=== PATIENT | female | born 2000 | race Caucasian/White ===

== ENCOUNTER → 2021-07-19 14:54 | Outpatient (CLI) | payer MEDICAID, SELFPAY ==
[2021-07-19 16:10] LABS: Absolute Lymphocyte Count 2.49 X10^3/uL (0.83-4.51); Absolute Neutrophil Count 4.1 X10^3/uL (2.0-7.7); Basophil# 0.06 X10^3/uL; Basophil% 0.8 % (0-1); Eosinophil# 0.16 X10^3/uL; Eosinophils% 2.2 % (0-5); Hematocrit 37.2 % (37-47); Hemoglobin 12.4 g/dL (12.0-15.0); Lymphocyte # 2.49 X10^3/ul (0.83-4.51); Lymphocyte % 33.9 % (19-41); Mean Corp Hgb Conc 33.3 g/dL (32-36); Mean Corpuscular Hgb 31.4 pg (27.0-32.0); Mean Corpuscular Volume 94.2 fL (81-99); Mean Platelet Vol. 10.5 fl (6.2-12.0); Monocyte# 0.55 X10^3/uL; Monocyte% 7.5 % (0-10); NRBC Flagged by Analyzer 0 % (0-5); Neutrophil # 4.06 X10^3/uL (2.7-7.7); Neutrophil % 55.3 % (47-70); Platelet Count 338 K/mm3 (150-450); RBC Distribution Width CV 11.9 % (11.6-14.6); RBC Distribution Width SD 40.8 fl (35.1-43.9); Red Blood Count 3.95 M/mm3 (4.2-5.4); White Blood Count 7.3 K/mm3 (4.4-11.0)
[2021-07-20 09:54] LABS: HIV - WCH Non-Reactive (Nonreactive); Hepatitis B Surface Antigen Non-Reactive (Nonreactive); Hepatitis C Antibody Non-Reactive (Nonreactive); Rubella IgG Reactive (Nonreactive); Syphilis Antibodies Non-reactive
[2021-07-21 22:07] LABS: Chlamydia By Nucleic Acid AMP Negative (Negative)
[2021-07-22 08:10] LABS: Gonococcus By Nucleic Acid AMP Negative (Negative)
[2021-07-22 16:28] LABS: HPV Reflexed? NOT INDICATED
== END ==
PROVIDERS: Visit Provider Obstetrics & Gynecology
DX: Z34.81 Encounter for supervision of other normal pregnancy, first trimester (principal)
CPT/HCPCS: 36415; 85025; 86703; 86762; 86780; 86803; 87086; 87088; 87340; 87491; 87591; 88175; G0145

== ENCOUNTER 2021-12-07 10:10 | Outpatient (CLI) | payer MEDICAID, SELFPAY ==
[2021-12-07 11:19] LABS: Hematocrit 33.4 % (37-47); Mean Corp Hgb Conc 32.9 g/dL (32-36); Mean Corpuscular Hgb 32.2 pg (27.0-32.0); Mean Corpuscular Volume 97.7 fL (81-99); Mean Platelet Vol. 11.1 fl (6.2-12.0); Platelet Count 273 K/mm3 (150-450); RBC Distribution Width CV 13.4 % (11.6-14.6); RBC Distribution Width SD 47.8 fl (35.1-43.9); Red Blood Count 3.42 M/mm3 (4.2-5.4); White Blood Count 10.8 K/mm3 (4.4-11.0)
[2021-12-07 11:23] LABS: Glucose Challenge Gest 1H 50g 91 mg/dL (70-140)
== END 2021-12-07 23:59 | disposition home or self-care (01) ==
PROVIDERS: Visit Provider Obstetrics & Gynecology
DX: Z34.83 Encounter for supervision of other normal pregnancy, third trimester (principal)
CPT/HCPCS: 36415; 82950; 85027

== ENCOUNTER 2022-01-17 06:59 | Outpatient (CLI) | payer MEDICAID, SELFPAY ==
[2022-01-17 07:21] VITALS: PULSE 83; O2SAT 98
[2022-01-17 07:34] VITALS: BMI 33.3
[2022-01-17 07:49] LABS: Color, Urine Yellow (Yellow); Glucose, Dipstick Normal (Normal); Ketone-Dipstick Negative (Negative); Leukocyte Esterase-Dipstick 25 /ul (Negative); Nitrite-Dipstick Negative (Negative); Occult Blood-Urine Negative /ul (Negative); Protein-Dipstick Negative (Negative); Urine Bilirubin Dipstick Negative (Negative); Urine Clarity Clear (Clear); Urine Urobilinogen Normal (Normal)
--- NOTE | 2022-01-17 08:12 | PN.OBGYN_ITS ---
Subjective Subjective 21-year-old G6, P3 at 33/4w presenting to labor and delivery triage for back pain and intermittent contractions. Denies leaking of fluid, vaginal bleeding. Reports movement. States she had low back pain starting yesterday and yesterday afternoon started having contractions. Reports rectal pressure. Has had loose stools for the past couple days. Denies fevers or chills, nausea or vomiting, urinary symptoms. Objective Data Objective Data Vital Signs: Vital Signs Pulse Pulse Ox 83 98 01/17/22 07:21 01/17/22 07:21 Weight: 56 kg Body Mass Index (BMI) 33.3 Lab / Micro Data Labs: Laboratory Results - last 24 hr 01/17/22 07:35: Urine Color Yellow, Urine Clarity Clear, Urine pH 7.0, Ur Specific Gorman 1.010, Urine Protein Negative, Urine Glucose (UA) Normal, Urine Ketones Negative, Urine Occult Blood Negative, Urine Nitrite Negative, Urine Bilirubin Negative, Urine Urobilinogen Normal, Ur Leukocyte Esterase 25 H Physical Exam Const alert, oriented x3 and no apparent distress HEENT normocephalic Head and Scalp: atraumatic Resp normal respiratory effort Cardio regular rate GI normal to inspection, nondistended, normoactive bowel sounds Inspection: gravid Narrative: CE: cl/th/high Back/Spine no CVA tenderness and normal to inspection General Back: Negative for tenderness Extremity normal to inspection NST FHR Rate Baby A Baseline: 140 Variability:: Moderate Accelerations:: 15 x 15 Decelerations:: None NST Reactive:: Yes Uterine Activity:: Rare contraction Assessment & Plan (1) Low back pain: PLAN: 21 yo at 33/4w presenting with low back pain and intermittent contractions. -No evidence of labor at this time. Cervix is closed/thick/high. Rare contractions on toco. -Low back pain likely secondary to discomfort in . Discussed supportive measures with stretching, massage, belly band for abdominal support. Discussed that subsequent pregnancies can cause more discomfort, and this disco mfort earlier. -Rectal pressure likely secondary to GI distress of recent loose stools. -Encourage increasing p.o. hydration, belly band -Recheck cervix in approximately 1 to 2 hours
[2022-01-17 09:55] VITALS: BP 121/75; PULSE 83
[2022-01-17 09:56] VITALS: TEMP 36.8
== END 2022-01-17 23:59 | disposition home or self-care (01) ==
LOC: WPOUT 07:02 → WP 07:20
PROVIDERS: PCP Family Medicine; Visit Provider Student in an Organized Health Care Education/Training Program
DX: O99.891 Other specified diseases and conditions complicating pregnancy (principal); M54.50 Low back pain, unspecified; Z3A.33 33 weeks gestation of pregnancy
CPT/HCPCS: 59025; 59050; 81002; 87077; 87086; 87088; 87186; 99218; G0378

== ENCOUNTER → 2022-02-04 | Outpatient (CLI) | payer MEDICAID, SELFPAY | END | disposition home or self-care (01) | PROVIDERS: PCP Family Medicine; Visit Provider Obstetrics & Gynecology | DX: Z36.85 Encounter for antenatal screening for Streptococcus B (principal); O99.891 Other specified diseases and conditions complicating pregnancy; N89.9 Noninflammatory disorder of vagina, unspecified | CPT/HCPCS: 87081 ==

== ENCOUNTER 2022-02-11 21:50 | Outpatient (CLI) | payer MEDICAID, SELFPAY ==
[2022-02-11 21:58] VITALS: PULSE 88; O2SAT 97
[2022-02-11 22:01] VITALS: BP 120/79; PULSE 91
[2022-02-11 22:12] VITALS: BMI 22.9
[2022-02-11 23:49] VITALS: BP 122/74; TEMP 36.7
[2022-02-11 23:50] VITALS: PULSE 76; O2SAT 98
--- NOTE | 2022-02-12 11:21 | OB.TRI.NOTE ---
HPI - General HPI Narrative CHRISTA BROWN, is a 21 F who presents at 37+ weeks gestation with some contractions. PFSH PFSH Home Medications albuterol sulfate 1 - 2 puff INHALATION Q4H PRN PRN 01/17/22 [History Last Taken Unknown] promethazine 12.5 mg PO DAILY PRN 01/17/22 [History Last Taken 02/10/22] Zoloft 100 mg PO/SL DAILY 02/11/22 [History Last Taken 02/10/22] Allergy/AdvReac Type Severity Reaction Status Date / Time amoxicillin [From Augmentin] Allergy Other Verified 02/12/22 00:14 clavulanic acid Allergy Other Verified 02/12/22 00:14 [From Augmentin] NST FHR Rate Baby A NST Reactive:: Yes FHR Category:: Category I Assessment & Plan (1) False labor, antepartum: PLAN: 37+ week intrauterine with false labor. After monitoring for a few hours cervix remained dilated at 3/50/-3. Reactive nonstress test. Discharge to home with routine labor instructions.
== END 2022-02-12 00:15 | disposition home or self-care (01) ==
LOC: WPOUT 21:54 → WP 21:54
PROVIDERS: PCP Family Medicine; Visit Provider Obstetrics & Gynecology
DX: O47.1 False labor at or after 37 completed weeks of gestation (principal); Z3A.37 37 weeks gestation of pregnancy
CPT/HCPCS: 59025; 59050; 99218; G0378

== ENCOUNTER 2022-02-23 07:45 | Inpatient (IN) | payer MEDICAID, SELFPAY ==
[2022-02-23] VITALS (35 sets, daily range): BP systolic 107–142; BP diastolic 60–92; PULSE 64–171; RESP 16; TEMP 36.2–37; O2SAT 78–100; BMI 23.7
[2022-02-23] MEDS: Lactated Ringers 1,000 ML 50 ML IV (08:15)
[2022-02-23 08:32] LABS: Absolute Lymphocyte Count 2.23 X10^3/uL (0.83-4.51); Absolute Neutrophil Count 13.1 X10^3/uL (2.0-7.7); Basophil# 0.06 X10^3/uL; Basophil% 0.4 % (0-1); Eosinophil# 0.08 X10^3/uL; Eosinophils% 0.5 % (0-5); Hemoglobin 11.4 g/dL (12.0-15.0); Lymphocyte # 2.23 X10^3/ul (0.83-4.51); Lymphocyte % 13.4 % (19-41); Mean Corp Hgb Conc 32.6 g/dL (32-36); Mean Corpuscular Hgb 31.7 pg (27.0-32.0); Mean Corpuscular Volume 97.2 fL (81-99); Mean Platelet Vol. 11.5 fl (6.2-12.0); Monocyte# 1.02 X10^3/uL; Monocyte% 6.1 % (0-10); NRBC Flagged by Analyzer 0 % (0-5); Neutrophil # 13.08 X10^3/uL (2.7-7.7); Neutrophil % 78.3 % (47-70); Platelet Count 270 K/mm3 (150-450); RBC Distribution Width CV 13.1 % (11.6-14.6); RBC Distribution Width SD 46.6 fl (35.1-43.9); White Blood Count 16.7 K/mm3 (4.4-11.0)
[2022-02-23 08:48] LABS: Amphetamine Urine VISTA NEGATIVE (<1000 ng/mL); Barbiturate Urine VISTA NEGATIVE (< 200 ng/mL); Benzodiazepine Urine VISTA NEGATIVE (< 200 ng/mL); Cocaine Urine VISTA NEGATIVE (< 300 ng/mL); Ecstacy Urine VISTA NEGATIVE (< 500 ng/mL); Methadone Urine VISTA NEGATIVE (< 300 ng/mL); PCP Urine VISTA NEGATIVE (< 25 ng/mL); THC Urine VISTA POSITIVE (< 50 ng/mL); Vista UDS pH Range 7
--- NOTE | 2022-02-23 08:54 | HP.PCM.OB_ITS ---
History and Physical Date of Admission: 02/23/22 ACOG ANTEPARTUM RECORD - HISTORY AND PHYSICAL (02/23/2022) Name: CHRISTA BROWN History of this : This is a 21 year old [id number] presents at 38 wks + 6 days gestation. OB Physician: NEFTALI MERCHANT MD 's Physician: [facility] ...................................................................... : 2000 Age: 21 Address: [address] [place] [address] [address] [place] [address] Phone: (H) [phone] (O) [phone] Insurance Carrier: [employer] [phone] Emergency Contact: DARIEN URIBE [phone] ...................................................................... Final VARUN: 03/03/22 By Ultrasound: PARITY: (G-Total Pregnancies P-Fullterm,Premature,Induced AB,Spont AB, Ectopics, Multiple,Living) VARUN CONFIRMATION: By LMP: 05/27/21 Final VARUN: 03/03/22 OB PROBLEM LIST: Smokes and uses marijuana. NOB visit- states had seiizure a few mo ago. On no meds... Declines genetic and carrier screening FOB with sickle cell trait. Patient with no family/personal history Severe nausea/vomiting Stress-induced epilepsy ALLERGIES: Augmentin Intolerance-unknown MEDICATIONS: albuterol sulfate 2 mg tablet This is an INHALER cephalexin 500 mg capsule 1 PO QID Diflucan 150 mg tablet 1 PO now Fioricet 50 mg-300 mg-40 mg capsule 1 to 2 PO every four to six hours PRN Headache. Do no exceed 6 capsules daily 28 mg-800 mcg tablet As Directed promethazine 12.5 mg tablet 1 PO every four to six hours PRN Nausea Zofran 4 mg tablet As Directed every eight hours for nausea Zoloft 100 mg tablet One pill by mouth once a day SOCIAL HISTORY: Smoking - Advised to quit and smoker x 1y. smokes a few a day Alcohol Use - None Diet - no special diet and Water 4+ bottles daily. Occ tea. 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 Children Name(s) - Ages 6 and 3 PRIOR DELIVERY HISTORY DEL DATE GEST LAB WT LB WT OZ TYPE ANES LABOR TX 01 Jan 27 8 0 0 0 Sab None No Oct 29 6 0 0 0 Sab None No Jul 26 39 18 6 8 Vag Epidural No Aug 27 40 7 6 1 Vag Epidural No Jul 23 41 36 8 7 Vag Epidural No ANTEPARTUM FLOW CHART VISIT GE RTC FU F F MS U U DATE WK MD WKS HT PN HR M SS BP ED WT MS GL D EF ST __ ____ ___ __ __ ___ __ __ __ ___ __ __ __ ___ __ 17 February JMW 6 37 V + + 122/84 sl 133 - - 4 50 -2 February JM 1 37 V + de 112/64 0 130 tr - 3 February JM 1 36 V + + 102/64 0 127 - - 3 Jan JM 1 36 V + + 110/72 0 127 - - 3 Jan JMW 2 34 V + + 110/90 126 ne ne 1 50 -2 14 Jan + 116/76 0 125 tr - 25 Jan 06 JM 2 31 - + + 112/62 0 124 - - 08 Jan 03 JM 2 28 - + + 118/66 0 118 tr - cl Jan 02 JM 3 27 - + + 115/70 sl 116 - - 01 Dec 01 JM 4 - - on + 110/62 0 117 - - 04 Oct 27 JM 4 19 - on + 108/66 0 113 03 Sep 22 JM 4 - - + ? 108/60 0 106 - - Jul 18 JM 5 - - on US 100/62 0 102 tr - ANTEPARTUM NOTE(S): Feb 22 2022: Ctxs-occas, Good FM, Induce per Request Feb 15 2022: Feb 07 2022: Feb 04 2022: Jan 26 2022: Dizziness, [place]/yellow discharge, Cx daily Jan 20 2022: Headache for 1+ days, see note Dec 31 2021: Dec 14 2021: Dec 07 2021: see note Nov 09 2021: see note Oct 12 2021: doing well Sep 10 2021: see note Aug 06 2021: Sono, PNV and NOB Today COMPREHENSIVE ANTEPARTUM NOTE(S): Feb 22 2022: 38 wks 5 days with occasional contractions and periodic (L) thigh numbness. Good FM. CRISTINO Feb 15 2022: Christa is 37w5d here for PNV baby has had decreased FM no edmea. Would like cervical exam. BR Feb 15 2022: NST at 37.5w for decreased movement. She smokes 1/2 to 1PPD. NST procedure explained to parents. Read as reactive by Dr MESA. COURTNEY. Feb 15 2022: 37wk, GBS neg. Decreased FM, NST reactive. MOSHE Feb 08 2022: H taken to OB. tkg Feb 07 2022: Christa is 36w4d here for PNV good FM no edema. States she is having irregular contractions would like cervical check Feb 07 2022: 36wks, GBS neg. 3cm. JM Feb 04 2022: Christa is 36w1d here for PNV good FM no edema. GBS LARC today. C/O vaginal discharge and itching. BR Feb 04 2022: 36 weeks, GBS collected today. Vaginitis collected today with vaginal irritation. 3 cm. JM Jan 20 2022: Christa is here for a B/P and urine protein check at 34 w 0 d, as she has had a headache since she woke up yesterday morning. She states that she has taken regular strength Tylenol as often as I am able to, but doesn't help at all. She states that her head hurts all over my head, and stays the same regardless of how she holds her head. Denies recent URI. She denies current visual changes/distur Dec 31 2021: Christa is 31w1d here for PNV good FM no edema. C/O being nauseous. BR Dec 31 2021: 31wk, no complaints. JM Dec 14 2021: Christa is 28w5d here for C/O contractions starting yesterday 4pm. lasting all night. Contractions stopped at 6 am and started again at 845am 2-10 mins apart lasting 2-10 seconds. BR Dec 14 2021: 28 weeks, add-on visit for cramping tolerable. Cervical exam closed thick and high. Ferning negative, nitrazine negative. Soft uterus, nonpalpable contractions. Educated patient on findings. Discussed warning signs of labor. To hydrate and rest at home. MOSHE Dec 07 2021: Christa is 27w5d. Here for PNV. Good FM. Slight edema. She states she is going to buy compression socks to help with her swelling. She would like to talk to MOSHE about being induced when the time comes. 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 She states she needs a new DR note for work excusing her to take 1 break throughout her shift. She has no other complaints or concerns at this time. MR Dec 07 2021: 27wks, 1hr GTT today. Note for work given. MOSHE Nov 09 2021: Christa is 23w5d here for PNV. States she has had decreased in her FM. States usually baby is very active however the last two days states the baby has had decreased FM. She says that the baby does not move 10 times within 2 hrs. Also C/O some Edema in her feet that she states is more than usual. Slight Edema today. She states a few weeks ago she had an episode of darkened vision and ever since then Nov 09 2021: 23 weeks, educated on kick counts. Bedside ultrasound within normal limits. 1 hour GTT next visit. MOSHE Oct 12 2021: Christa is 19w5d positive movement no edema. No questions or concerns she is doing well. BR Oct 12 2021: 19 weeks, anatomy ultrasound today within normal limits. Still with vomiting but much improved. Gaining weight. 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 Sep 10 2021: Christa C/O sharp, stabbing cramping in lower pelvic area, radiates bilaterally on her sides but mostly left the last week daily. She believes she is feeling movement just flutters at this time. Declines AFP screening. BR Sep 10 2021: 15wk, has changed mind and declines genetic and carrier screening. Still with nausea, phenergan works better than zofran. Anatomy u/s next visit. MOSHE Aug 06 2021: 10 weeks, with FINAL VARUN: 03/03/21 by LMP c/w 10wk u/s. Patient with nausea now improving, taking Zofran. Able to hydrate and eat small meals. panel normal limits, Pap smear within normal limits, Rh+. No seizures since last visit. Desires genetic screening will obtain at next visit. MOSHE Aug 06 2021: NOB NURSE VISIT-- Christa is here with FOBDarien with VARUN 03-03-22 planning a vag del at [facility] unsure of epidural or post disch ped care or feeding method. 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 . She lives w Darien who has 7 other children from age 3 to age 22. They are good with the . Christa is allergic to Augmentin, noted as Jul 19 2021: Mindy is here for a missed menses w/ SO. Pt is a 20 y.o. , 2 SAB's. Pt has had all vaginal births, states the cord was wrapped around all 3 of her children's necks upon delivering. 3rd baby, born in 2019, passed at 7 wks d/t SIDS. LMP 05/27/21. Positive UPT in office. VARUN 03/03/22, pt is approx 7 wks and 4 days. Reports daily emesis and nausea, is usually sick multiple times in one day. Takes REVIEW OF SYSTEMS: GENERAL - Denies fever, or chills SKIN - Denies rash, new skin lesions, or change in moles EYES - Denies blurred vision, or change in visual acuity EARS - Denies ear pain, or difficulty hearing NOSE - Denies nasal congestion, discharge, or bleeding MOUTH - Denies sore throat, or difficulty swallowing NECK - Denies pain or swelling RESPIRATORY - Denies shortness of breath, cough, wheezing CARDIOVASCULAR - Denies palpitations, chest pain, orthopnea, PND, peripheral edema, syncope or claudication GASTROINTESTINAL - Denies nausea, vomiting, diarrhea, constipation, Denies abdominal pain, melena and or bright red blood GENITOURINARY - Denies dysuria, frequency of urination, urgency, or hesitancy MUSCULOSKELETAL - Denies joint or muscle pain, or back pain NEUROLOGICAL - Denies localized numbness, weakness, or tingling PSYCHIATRIC - Denies depression, anxiety, substance abuse or suicide attempts ENDOCRINE - Denies heat or cold intolerance, weight loss or gain, increasing thirst HEMATO-IMMUNOLOGIC - Denies easy bruising, bleeding, oral ulcerations or recurrent infections GENETICS SCREENING: Age 35+ years: No Thalassemia: No Neural Tube Defect: No Down Syndrome: No BABITA-SACHS: No Sickle Cell Disease: No Hemophilia: No Musc. Dystrophy: No Cystic Fibrosis: No-declines screening [place] Chorea: No Mental Retardation: No Fragile X: No Other genetic: No Other defects: No SABs/still births: Yes x2 Drugs since LMP: Yes INFECTION HISTORY: High risk AIDS: No High risk Hepatitis: No Exposed to TB: No Exposed to Herpes: No Rash/viral illness since LMP: No History of STD: No MENSTRUAL HISTORY: *Menses Amount/Duration: 5 daysMenses Regularity: RegularFrequency: monthlyMenarche (Age Onset): 8* PAST SUMMARY: PARITY: 1. Total Pregnancies............ 6 2. Full Term Pregnancies........ 3 3. Premature.................... 0 4. Abortions - Induced.......... 0 5. Abortions - Spontaneous...... 2 6. Ectopics..................... 0 7. Multiple Births.............. 0 8. Living Children.............. 2 PAST #1: Date of :.................. 08/03/15 Gestation Weeks:................ 41 Length of labor(hours):......... 36 Sex:............................ F Weight-lbs:............... 8 Weight-oz:................ 7 Type of Delivery:............... Vag Type of Anesthesia:............. Epidural Place of Delivery:.............. [place] Treatment of Labor?:.... No Comment: MARCELINA SHEPHERD Echo PAST #2: Date of :.................. 07/10/18 Gestation Weeks:................ 39 Length of labor(hours):......... 18 Sex:............................ M Weight-lbs:............... 6 Weight-oz:................ 8 Type of Delivery:............... Vag Type of Anesthesia:............. Epidural Place of Delivery:.............. [place] Treatment of Labor?:.... No Comment: Fox HEWITT PAST #3: Date of :.................. 08/29/19 Gestation Weeks:................ 40 Length of labor(hours):......... 7 Sex:............................ M Weight-lbs:............... 6 Weight-oz:................ 1 Type of Delivery:............... Vag Type of Anesthesia:............. Epidural Place of Delivery:.............. [place] Treatment of Labor?:.... No Comment: ESTEVAN HEWITT Christian PAST #4: Date of :.................. 10/09/20 Gestation Weeks:................ 6 Length of labor(hours):......... 0 Sex:............................ UNKNOWN Weight-lbs:............... 0 Weight-oz:................ 0 Type of Delivery:............... Sab Type of Anesthesia:............. None Place of Delivery:.............. HOME Treatment of Labor?:.... No Comment: PAST #5: Date of :.................. 01/07/21 Gestation Weeks:................ 8 Length of labor(hours):......... 0 Sex:............................ UNKNOWN Weight-lbs:............... 0 Weight-oz:................ 0 Type of Delivery:............... Sab Type of Anesthesia:............. None Place of Delivery:.............. HOME Treatment of Labor?:.... No Comment: PHYSICAL EXAMINATION General Appearence: 21 yo female in no acute distress Vital Signs: AF, VSS Heart: RRR without rubs or gallops Lungs: CTA x 2 Breasts: deferred Abdomen: gravid Pelvis: Cervix: 5/90/-2 Presentation: cephalic Station: Fetus: Size: AGA Movement: present Heart: present, Cat I LAB TEST(S) ORDERED SINCE:06/06/21 07/22/2021 URINE CULTURE 07/22/2021 PAP I-G W/RFX HRHPV-APTIMA 07/22/2021 CHLAMYDIA/GC MICHELLE APTIMA 07/20/2021 RUBELLA IGG 07/20/2021 L509.8000 07/20/2021 HIV - [facility] 07/20/2021 HEPATITIS C ANTIBODY 07/20/2021 HEPATITIS B SURFACE ANTIGEN 07/19/2021 T AND S-NO CHARGE W/PNP 07/19/2021 CBC W/DIFF, AUTOMATED 02/23/2022 UR DRG SCN W/RFLX AMPH CONFIRM 02/23/2022 CBC W/DIFF, AUTOMATED 02/08/2022 MISCELLANEOUS LAB PROCEDURE 02/07/2022 RULE OUT BETA STREP (GRP. B) 01/19/2022 URINE CULTURE 01/17/2022 URINALYSIS, ROUTINE (DIPSTICK) 12/07/2021 GLUCOSE CHALLENGE GEST 1H 50G 12/07/2021 CBC-COMPLETE BLOOD CNT NO DIFF == ==== Order Observation Description Value Ref_Range A* Site == ==== UR DRG SCN W/RF NOTE BETH UR DRG SCN W/RF VISTA UDS PH 7 ML UR DRG SCN W/RF AMPHETAMINES NEGATIVE <1000 ng/mL ML UR DRG SCN W/RF BARBITIURATES NEGATIVE < 200 ng/mL ML UR DRG SCN W/RF BENZODIAZIPINE NEGATIVE < 200 ng/mL ML UR DRG SCN W/RF COCAINE NEGATIVE < 300 ng/mL ML UR DRG SCN W/RF ECSTACY NEGATIVE < 500 ng/mL ML UR DRG SCN W/RF METHADONE NEGATIVE < 300 ng/mL ML UR DRG SCN W/RF OPIATES NEGATIVE < 300 ng/mL ML UR DRG SCN W/RF PCP NEGATIVE < 25 ng/mL ML UR DRG SCN W/RF THC POSITIVE < 50 ng/mL A ML CBC W/DIFF, AUT NOTE BETH CBC W/DIFF, AUT WBC 16.7 K/mm3 4.4-11.0 H ML CBC W/DIFF, AUT RBC 3.60 M/mm3 4.2-5.4 L ML CBC W/DIFF, AUT HGB 11.4 g/dL 12.0-15.0 L ML CBC W/DIFF, AUT HCT 35.0 37-47 L ML CBC W/DIFF, AUT MCV 97.2 fL 81-99 ML CBC W/DIFF, AUT MCH 31.7 pg 27.0-32.0 ML CBC W/DIFF, AUT MCHC 32.6 g/dL 32-36 ML CBC W/DIFF, AUT RDW CV 13.1 11.6-14.6 ML CBC W/DIFF, AUT RDW SD 46.6 fl 35.1-43.9 H ML CBC W/DIFF, AUT PLT 270 K/mm3 150-450 ML CBC W/DIFF, AUT MPV 11.5 fl 6.2-12.0 ML CBC W/DIFF, AUT NEUT% 78.3 47-70 H ML CBC W/DIFF, AUT LY% 13.4 19-41 L ML CBC W/DIFF, AUT MONO% 6.1 0-10 ML CBC W/DIFF, AUT EO% 0.5 0-5 ML CBC W/DIFF, AUT BASO% 0.4 0-1 ML CBC W/DIFF, AUT IG% 1.300 0.0-0.9 H ML IG% - Immature Granulocytes (promyelocytes, myelocytes and metamyelocytes) > 1% indicates that a LEFT SHIFT is Present. CBC W/DIFF, AUT ABSOLUTE NEUT 13.1 X10 3/uL 2.0-7.7 H ML CBC W/DIFF, AUT ABSOLUTE LYMPH 2.23 X10 3/uL 0.83-4.51 ML CBC W/DIFF, AUT NUCLEATED RBC 0 0-5 ML MISCELLANEOUS L NOTE BETH MISCELLANEOUS L MISC LAB TEST ML TEST RESULT LIMITS NuSwab Vaginitis Plus (VG+) Bacterial Vaginosis, MICHELLE Atopobium vaginae Low - 0 Score BVAB 2 Low - 0 Score Megasphaera 1 Low - 0 Score Total Score, add three scores Calculate total score by adding the 3 individual bacterial vaginosis (BV) marker scores together. Total score is interpreted as follows: Total score 0-1: Indicates the absence of BV. Total score 2: Indeterminate for BV. Additional clinical data should be evaluated to establish a diagnosis. Total score 3-6: Indicates the presence of BV. This test was developed and its performance characteristics determined by [facility]. It has not been cleared or approved by the Food and Drug Administration. Alyssa albicans, MICHELLE A, Positive Abnormal Negative Alyssa glabrata, MICHELLE A, Negative Negative Trich vag by MICHELLE Negative Negative Chlamydia trachomatis, MICHELLE Negative Negative Neisseria gonorrhoeae, MICHELLE Negative Negative Comments A: This test was developed and its performance characteristics determined by [facility]. It has not been cleared or approved by the Food and Drug Administration. [facility] ORIGINAL REPORT ON FILE IN LAB CONTAINS ADDITIONAL TEST SITE INFORMATION. RULE OUT BETA S NOTE BETH URINE CULTURE NOTE BETH URINALYSIS, ROU NOTE BETH URINALYSIS, ROU COLOR Yellow Yellow ML URINALYSIS, ROU URINE CLARITY Clear Clear ML URINALYSIS, ROU GLUCOSE, UR Normal mg/dl Normal ML URINALYSIS, ROU BILIRUBIN URINE Negative mg/dL Negative ML URINALYSIS, ROU KETONE UR Negative mg/dl Negative ML URINALYSIS, ROU SP.GR. DIPSTX 1.010 1.002-1.030 ML URINALYSIS, ROU PH UR 7.0 5.0 - 8.0 ML URINALYSIS, ROU PROT DIPSTX Negative mg/dl Negative ML URINALYSIS, ROU UROBILI Normal mg/dl Normal ML URINALYSIS, ROU NITRITE Negative Negative ML URINALYSIS, ROU OCCULT BLOOD-UR Negative /ul Negative ML URINALYSIS, ROU LEUK ESTERASE 25 /ul Negative A ML GLUCOSE CHALLEN NOTE BETH GLUCOSE CHALLEN GLU GEST 50G 1H 91 mg/dL 70-140 ML CBC-COMPLETE BL NOTE BETH CBC-COMPLETE BL WBC 10.8 K/mm3 4.4-11.0 ML CBC-COMPLETE BL RBC 3.42 M/mm3 4.2-5.4 L ML CBC-COMPLETE BL HGB 11.0 g/dL 12.0-15.0 L ML CBC-COMPLETE BL HCT 33.4 37-47 L ML CBC-COMPLETE BL MCV 97.7 fL 81-99 ML CBC-COMPLETE BL MCH 32.2 pg 27.0-32.0 H ML CBC-COMPLETE BL MCHC 32.9 g/dL 32-36 ML CBC-COMPLETE BL RDW CV 13.4 11.6-14.6 ML CBC-COMPLETE BL RDW SD 47.8 fl 35.1-43.9 H ML CBC-COMPLETE BL PLT 273 K/mm3 150-450 ML CBC-COMPLETE BL MPV 11.1 fl 6.2-12.0 ML URINE CULTURE NOTE BETH HEPATITIS C ANT NOTE BETH HEPATITIS C ANT HEPATITIS C AB Non-Reactive Nonreactive ML Non Reactive: < 0.8 Equivocal: >/= 0.8 to < 1.0 Reactive: >/= 1.0 The CDC recommends that a reactive/equivocal HCV antibody result be followed up by the HCV Nucleic Acid Amplification test (569415) HEPATITIS B FERNANDEZ NOTE BETH HEPATITIS B FERNANDEZ HEP B SURF AG Non-Reactive Nonreactive ML HIV - [facility] NOTE BETH HIV - [facility] HIV Non-Reactive Nonreactive ML L509.8000 NOTE BETH L509.8000 SYPHILIS ABS Non-reactive ML RUBELLA IGG NOTE BETH RUBELLA IGG RUBELLA IGG Reactive Nonreactive ML Antibody Results Interpretation of Immune Status Non Reactive Presumed Non-Immune Equivocal Equivocal Reactive Presumed Immune PN N [facility]~[address] [place], [address]~ T AND AB SCREEN GEL NEGATIVE ML CBC W/DIFF, AUT NOTE BETH CBC W/DIFF, AUT WBC 7.3 K/mm3 4.4-11.0 ML CBC W/DIFF, AUT RBC 3.95 M/mm3 4.2-5.4 L ML CBC W/DIFF, AUT HGB 12.4 g/dL 12.0-15.0 ML CBC W/DIFF, AUT HCT 37.2 37-47 ML CBC W/DIFF, AUT MCV 94.2 fL 81-99 ML CBC W/DIFF, AUT MCH 31.4 pg 27.0-32.0 ML CBC W/DIFF, AUT MCHC 33.3 g/dL 32-36 ML CBC W/DIFF, AUT RDW CV 11.9 11.6-14.6 ML CBC W/DIFF, AUT RDW SD 40.8 fl 35.1-43.9 ML CBC W/DIFF, AUT PLT 338 K/mm3 150-450 ML CBC W/DIFF, AUT MPV 10.5 fl 6.2-12.0 ML CBC W/DIFF, AUT NEUT% 55.3 47-70 ML CBC W/DIFF, AUT LY% 33.9 19-41 ML CBC W/DIFF, AUT MONO% 7.5 0-10 ML CBC W/DIFF, AUT EO% 2.2 0-5 ML CBC W/DIFF, AUT BASO% 0.8 0-1 ML CBC W/DIFF, AUT IG% 0.300 0.0-0.9 ML IG% - Immature Granulocytes (promyelocytes, myelocytes and metamyelocytes) > 1% indicates that a LEFT SHIFT is Present. CBC W/DIFF, AUT ABSOLUTE NEUT 4.1 X10 3/uL 2.0-7.7 ML CBC W/DIFF, AUT ABSOLUTE LYMPH 2.49 X10 3/uL 0.83-4.51 ML CBC W/DIFF, AUT NUCLEATED RBC 0 0-5 ML PAP I-G W/RFX H NOTE BETH PAP I-G W/RFX H DIAG Comment . [facility] NEGATIVE FOR INTRAEPITHELIAL LESION OR MALIGNANCY. PAP I-G W/RFX H ADEQ Comment . [facility] Satisfactory for evaluation. Endocervical and/or squamous metaplastic cells (endocervical component) are present. PAP I-G W/RFX H PERFORM Comment . [facility] Rhea Brown, Machine Bander And Cellophaner Helper (ASCP) This liquid based ThinPrep(R) pap test was screened with the use of an image guided system. PAP I-G W/RFX H COMM . . [facility] PAP I-G W/RFX H PAPSMR Comment . [facility] The Pap smear is a screening test designed to aid in the detection of premalignant and malignant conditions of the uterine cervix. It is not a diagnostic procedure and should not be used as the sole means of detecting cervical cancer. Both false-positive and false-negative reports do occur. PAP I-G W/RFX H HPV RFLX Comment . [facility] The HPV DNA reflex criteria were not met with this specimen result therefore, no HPV testing was performed. Performed at: [address] [id number] Lens Examiner: Shelby Moreno MD, Phone: [phone] CHLAMYDIA/GC NA NOTE BETH CHLAMYDIA/GC NA CHLAMY,NUC ACID Negative Negative [facility] CHLAMYDIA/GC NA GC BY NUC ACID Negative Negative [facility] Performed at: [address] [id number] Lens Examiner: Shelby Moreno MD, Phone: [phone] Group B Beta Streptococcus is not isolated. Streptococcus mitis/ oralis [place] Count <FONT [id number] Streptococcus mitis/ oralis: REACTION Ampicillin Islt KELLY <=0.25 S Penicillin G Islt KELLY <=0.06 S Cefotaxime Islt KELLY <=0.12 S cefTRIAXone Islt KELLY <=0.12 S Clindamycin Islt KELLY <=0.25 S Linezolid Islt KELLY <=2 S Vancomycin Islt KELLY 0.25 S Probable contaminant Presumptive Lactobacillus sp. [place] Count 1000-10,000 A POSITIVE == ==== Impression /Plan: 38 wks + 6 days intrauterine . Active labor. Preparations in progress for delivery. Assessment & Plan Assessment/Plan (1) 38 weeks gestation of :
[2022-02-23] MEDS: Lactated Ringers 500 ML 999 ML IV (10:25)
[2022-02-23] MEDS: fentaNYL-bupivacaine (epidural) 100 ML BAG EPIDURAL ×2 (11:35→15:03)
[2022-02-23] MEDS: Ondansetron 4 MG/2 ML Vial IV (13:13)
[2022-02-23] MEDS: Oxytocin 30 units/NS 500 ml 30 UNITS/500 ML IV.SOLN 334 UNITS IV (15:47)
--- NOTE | 2022-02-23 15:59 | EX.PCM.OBRPT ---
Vaginal Delivery Maternal Presentation Maternal Presentation: Active Labor Operative Information Date of Procedure: 02/23/22 Pre-Operative Diagnosis: IUP Post-Operative Diagnosis: IUP Surgery / Procedure Performed: Vacuum Assisted Vaginal Delivery Type of Anesthesia: Epidural Estimated Blood Loss: 250 cc Findings Description of Procedure: Spontaneous vaginal delivery of a viable male infant with Apgars of 8/9 from an occiput anterior presentation with clear amniotic fluid and normal three-vessel placenta. Cord around the neck x1 tight. No episiotomy or lacerations. Kiwi vacuum used x1 gentle pull from low outlet to expedite delivery of the head due to deep decelerations with pushing. No pop offs. Sponges okay. Delivery physician: Gato Dill MD. Presentation: Vertex Amniotic Membrane Rupture Type: Artificial Amniotic Fluid Description: Clear Placental Delivery Description: Spontaneous Placenta Disposition: [facility] Cord Vessel Description: 3 Vessels Cord Entanglement: Around neck x 1, tight Cord Gases: ABG and VBG Infant A Gender: Male (1 minute): 8 (5 minute): 9 Post Vaginal Delivery Medications Given After Delivery: IV Pitocin Episiotomy Description: None Laceration: None Complication Complications: None
[2022-02-23] MEDS: Acetaminophen 500 MG Tablet 1000 MG PO (17:23)
[2022-02-24 00:02] VITALS: BP 120/73; PULSE 68; RESP 16; TEMP 36.6
[2022-02-24] MEDS: Ibuprofen 600 MG Tablet PO ×2 (00:04→09:23)
[2022-02-24 04:00] VITALS: BP 105/60; PULSE 66; RESP 16; TEMP 36.4
[2022-02-24 09:11] VITALS: BP 123/77; PULSE 72; RESP 16; TEMP 36.6
[2022-02-24] MEDS: Sertraline 100 MG Tablet PO (09:23)
--- NOTE | 2022-02-24 09:28 | PCM.PN.OB ---
Subjective Subjective Patient without complaints. Breast-feeding going well. Wants Depo-Provera but will probably wait until her 6-week appointment. Wants to go home today if baby is able to. Objective Data Objective Data Vital Signs: Vital Signs Temp Pulse Resp BP Pulse Ox 97.8 F 72 16 123/77 H 99 02/24/22 09:11 02/24/22 09:11 02/24/22 09:11 02/24/22 09:11 02/23/22 15:59 Oxygen Delivery Method Room Air Weight: 133 lb 13.129 oz Body Mass Index (BMI) 23.7 Intake & Output: Intake and Output for Last 24 Hours 02/22/22 02/23/22 02/24/22 23:59 23:59 23:59 Intake Total Balance Lab / Micro Data Result Diagrams: 02/23/22 08:15 Labs: Laboratory Results - last 24 hr 02/23/22 08:15: Blood Type A POSITIVE, Antibody Screen NEGATIVE Micro: Microbiology 02/23/22 08:15 Nasal Secretion SARS-CoV-2 Antigen (Rapid) - Final Assessment & Plan (1) 38 weeks gestation of : PLAN: Doing well day #1 status post routine spontaneous vaginal delivery. Will discharge to home with routine instructions.
--- NOTE | 2022-02-24 09:29 | PCM.DC ---
Discharge Instructions Diet Discharge Diet: No restrictions Activity Discharge Activity: May Drive (In 1 to 2 days if not taking narcotic pain medication), May Shower and May Take a Tub Bath May resume sexual activity in: 4-6 weeks Additional Activity Instructions:: Nothing in the vagina for 4-6 weeks. You may return to work/school in 6 weeks. Dressing / Incision Call your doctor if you observe: Fever of 101 or Higher, Inability to urinate, Inability to have a bowel movement and Using more than 1 pad per hour Follow Up Care Please Follow Up With: Severino Hilario MD When: Call [phone] to make an appointment with your doctor in 6 weeks. Test Results: Test results from this visit will be discussed in further detail at your follow-up appointment, if applicable. Discharge Plan Admission Admit Date/Time: 02/23/22 07:45 Primary Reason for Your Visit: Vaginal Delivery Attending Provider: Gato Dill Primary Care Provider: Daron White Discharge Orders/Prescriptions Prescriptions: No Action promethazine 12.5 mg tablet 12.5 mg PO DAILY PRN (Reason: Nausea And Vomiting) RF: 0 albuterol sulfate 90 mcg/actuation HFA aerosol inhaler 1 - 2 puff INHALATION Q4H PRN PRN (Reason: Dyspnea) RF: 0 Zoloft 100 mg PO/SL DAILY RF: 0 Referrals / Follow Up: Daron White MD [Primary Care Provider] - Disposition Disposition (needs filled in before D/C Order can be placed): Home, Self Care
[2022-02-24 13:15] VITALS: BP 125/79; PULSE 71; RESP 16; TEMP 36.4
[2022-02-24] MEDS: Acetaminophen 500 MG Tablet 1000 MG PO (14:46)
--- NOTE | 2022-02-24 15:30 | NURSING ---
Report received from Scott Abdi RN
[2022-02-24 17:30] VITALS: BP 131/68; PULSE 81; RESP 16; TEMP 36.6
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
--- NOTE | 2022-03-09 17:28 | CASEMGMT ---
Social Work Labor and Delivery Unit Late entry for intervention occurring on 02/25/2022. Called [facility] children services and spoke with Sarah in the intake department ([phone], extension [phone]). Referral given due to substance exposed in utero as well as other risk factors including children services involvement for a child of the father of baby (MOB and FOB mental health history, and that both parents endorse use of marijuana. Brief maternal and infant histories provided including drug screen results. Received notification that referral is being screened in for investigation and Pebbles Sylvester (extension [phone]) is the assigned worker. We will monitor for meconium drug screen results and report as indicated. -PIO Holly, LOCATOR *This note was generated with Nu[employer] software. It may contain incorrect words, spelling, and punctuation that were not noted in review of the chart prior to signing*
--- NOTE | 2022-03-09 17:34 | CASEMGMT ---
Social Work Labor and Delivery Unit Meconium drug screen results are back, refer to 's delivery record for further details, which is linked to this patient's delivery record. [facility] is already involved, and following in the community at this point. Refer to prior social work documentation for further details. No other social work services requested or indicated. -PIO Holly, SET AND EXHIBIT DESIGNER *This note was generated with [employer] dictation software. It may contain incorrect words, spelling, and punctuation that were not noted in review of the chart prior to signing*
== END 2022-02-24 17:40 | disposition home or self-care (01) | DRG 560 ==
LOC: WPOUT 07:52 → WP 07:52
PROVIDERS: Obstetrics & Gynecology; Admitting Provider Obstetrics & Gynecology; PCP Family Medicine; Visit Provider Obstetrics & Gynecology
DX: O99.324 Drug use complicating childbirth (principal); Z37.0 Single live birth; F12.90 Cannabis use, unspecified, uncomplicated; F17.200 Nicotine dependence, unspecified, uncomplicated; O99.334 Smoking (tobacco) complicating childbirth; O69.1XX0 Labor and delivery complicated by cord around neck, with compression, not applicable or unspecified; O76 Abnormality in fetal heart rate and rhythm complicating labor and delivery; Z3A.38 38 weeks gestation of pregnancy
CPT/HCPCS: 59025; 59050; 80307; 85025; 86850; 86900; 86901; 87426; 99218; J7120; G0378; J2405

== ENCOUNTER 2022-07-22 13:43 | Emergency (ER) | payer MEDICAID, SELFPAY ==
[2022-07-22 13:45] VITALS: BP 125/92; PULSE 87; RESP 14; TEMP 36.8; O2SAT 98; BMI 21.3
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
== END 2022-07-22 15:40 | disposition left against medical advice (07) ==
PROVIDERS: Emergency Provider Emergency Medicine; PCP Family Medicine; Visit Provider Emergency Medicine
DX: F43.0 Acute stress reaction (principal); F41.0 Panic disorder [episodic paroxysmal anxiety]; F32.A Depression, unspecified; J45.909 Unspecified asthma, uncomplicated; F17.200 Nicotine dependence, unspecified, uncomplicated; Z79.899 Other long term (current) drug therapy
CPT/HCPCS: 99281; 99282

== ENCOUNTER 2022-10-12 16:12 | Emergency (ER) | payer MEDICAID, SELFPAY ==
[2022-10-12 16:14] VITALS: BP 118/83; PULSE 94; RESP 14; TEMP 36.2; O2SAT 100; BMI 20.2
--- NOTE | 2022-10-12 16:19 | ED.RN ---
PT WANTS TO GO TO [place] D/T THE WAIT
== END 2022-10-12 16:19 | disposition left against medical advice (07) ==
LOC: ED 16:33
PROVIDERS: PCP Family Medicine
DX: Z00.8 Encounter for other general examination (principal); Z53.21 Procedure and treatment not carried out due to patient leaving prior to being seen by health care provider

== ENCOUNTER 2023-03-13 19:15 | Emergency (ER) | payer MEDICAID, SELFPAY ==
[2023-03-13 19:16] VITALS: BP 131/78; PULSE 94; RESP 16; TEMP 36.1; O2SAT 98; BMI 18.5
--- NOTE | 2023-03-13 19:40 | EX.ED.DYSGE1 ---
HPI History of Present Illness Chief Complaint: Syncope Detail of Chief Complaint: Syncope Informant: patient Narrative Narrative: Patient presents the emergency department after sustaining a syncopal episode. Patient was seen at urgent care and referred to the ER. Patient states that she had gotten off work and she went to [employer] to get a sandwich and as she entered she got her finger stuck in a door and it was very painful and she had to pull her finger out. Patient thinks that is what triggered everything. She was then standing in line waiting on her sandwich when she started feeling hot so she went and sat down and took her sweatshirt off. She was then called up to place her order and she remembers getting to the point where she was ordering her cheese and felt hot and sweaty and felt like she was in a pass out shows she tried to go back to her seat and sit down but she did not get that far as she passed out. She did hit her face. She sustained a small laceration to her upper lip. She complains of a headache. Patient thinks she may have been out for just a few seconds as she was on her phone with her at the time. 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 She otherwise has not been ill. She denies chest pain or shortness of breath. Does not think she is . [facility] Medical History 38 weeks gestation of Anxiety Asthma Depression Family history of hearing loss at age younger than 7 years Gestational diabetes depression Seizures Stillborn, normal Home Medications albuterol sulfate 90 mcg/actuation aerosol inhaler 1 - 2 puff inhalation Q4H PRN PRN Dyspnea 01/17/22 [History Last Taken 02/19/22 14:00] promethazine 12.5 mg tablet 12.5 mg PO DAILY PRN Nausea And Vomiting 01/17/22 [History Last Taken 02/10/22] Zoloft 100 mg PO/SL DAILY Check with primary doctor 02/11/22 [History Last Taken 02/22/22 21:00] Allergy/AdvReac Type Severity Reaction Status Date / Time amoxicillin [From Augmentin] Allergy Other Verified 03/13/23 19:16 clavulanic acid Allergy Other Verified 03/13/23 19:16 [From Augmentin] Social History Smoking Status: Current every day smoker tobacco type: cigarettes ROS ROS ED ROS Narrative Syncope Review of Systems ROS Unobtainable: other Constitutional Constitutional ED: Reports lethargy; Denies chills, fever(s), sweats or weight loss Eyes Eyes: Denies blurry vision, change in vision or diplopia ENT ENT ED: Reports other Details: Lip laceration, left upper incisor pain/injury ; Denies rhinorrhea or sore throat Cardiovascular Cardiovascular: Denies chest pain, orthopnea or racing heartbeat Respiratory/Chest Respiratory/Chest: Denies cough, dyspnea, dyspnea on exertion, orthopnea or sputum Gastrointestinal Gastrointestinal: Denies abdominal pain, diarrhea, nausea or vomiting Genitourinary Genitourinary ED: Denies dysuria, hematuria or urinary frequency Musculoskeletal Musculoskeletal: Denies arthralgias, back pain, myalgias or neck pain Integumentary Denies abscess, Abrasions or rash Neurologic Neurologic: Denies headache(s) or weakness Psychiatric Psychiatric: Denies anxiety, depression or suicidal thoughts Endocrine Endocrinology: Denies polydipsia, polyphagia or polyuria Hematologic/Lymphatic Hematologic/Lymphatic: Denies easy bleeding, easy bruising or lymphadenopathy Allergic/Immunologic Allergic/Immunologic ED: Denies mouth swelling, tongue swelling or urticaria EXAM Physical Exam Const Vital Signs: 03/13/23 19:16 03/13/23 20:27 Temperature 97 F L Temperature Source Temporal Pulse Rate 94 Respiratory Rate 16 Respiratory Effort Normal Non-Labored Respiratory Pattern Normal Blood Pressure 131/78 H Blood Pressure Mean 95 Pulse Ox 98 Oxygen Delivery Method Room Air Positive well nourished and well developed General Appearance ED: well developed and NAD HEENT Reports TM's clear and moist mucous membranes HEENT Narrative: Patient with a 1 cm laceration to the left upper lip mucosa. No gaping of the wound noted or fat extruding. Patient also has tenderness to the left upper incisor that appears to be slightly pushed posteriorly. Patient also with tenderness over the left zygomatic arch with some mild ecchymosis and bruising noted. normocephalic and atraumatic; Negative for trauma or tenderness Tympanic Membrane ED: Yes TM's clear Eyes PERRL and EOMs intact bilaterally General Eye ED: Negative for pale conjunctiva or scleral icterus Neck no lymphadenopathy, supple and no JVD General: Negative for tenderness Chest Wall inspection of chest normal and palpation of chest normal Chest: Negative for tenderness Resp normal respiratory effort and clear to auscultation bilaterally Effort and Inspection: Negative for respiratory distress or pain with movement Auscultation: Negative for rhonchi, wheezes or diminished lung sounds Cardio regular rate, regular rhythm, S1 normal heart sound, S2 normal heart sound and no murmurs Peripheral Pulses: pulses 2+ throughout GI normal to inspection, nondistended, normoactive bowel sounds, soft to palpation, non-tender, non-distended and no masses Back/Spine no CVA tenderness and no thoracic nor lumbar tenderness Extremity normal to inspection General Extremety ED: Negative for edema General Extremity: Negative for edema Neuro oriented x3, CN's II-XII intact bilaterally, no sensory deficits noted and gait normal Sensorium / Orientation: awake, alert, oriented to person, oriented to place and oriented to time Motor Exam: strength 5/5 throughout and strength abnormal Psych mental status grossly normal Skin no rashes or lesions noted and no wounds MDM MDM MDM Narrative Medical decision making narrative: Patient is with a syncopal episode that clinically I feel is likely vasovagal. She did hit her face on the ground and complains of a headache. She has some trauma to her left cheekbone. Patient did have a CT scan of the brain and CT facial bones and both were negative for acute disease process. Patient will be discharged to home. I do not feel any other work-up is indicated. Radiography Diagnostic Testing: Clinical Impression(s) from Imaging Studies Brain CT 03/13/23 20:00 IMPRESSION: Negative head/brain CT without intravenous contrast. Electronically Signed: Ced Swift MD at 20:22 EDT , Facial/Sinus 03/13/23 20:00 IMPRESSION: Negative CT facial bones without intravenous contrast. Electronically Signed: Ced Swift MD at 20:25 EDT , Discharge Plan Triage Chief Complaint: Syncope ED Provider: Kristin Vargas Dx/Rx/DC Orders Clinical Impression: Syncope, vasovagal, Closed head injury, Contusion of face Instructions: ED Facial Contusion, ED Head Injury (Adult), ED Fainting, Vagal Reaction Prescriptions: No Action promethazine 12.5 mg tablet 12.5 mg PO DAILY PRN (Reason: Nausea And Vomiting) Label Comments: take 1 tablet by mouth every 4 to 6 hours if needed for nausea albuterol sulfate 90 mcg/actuation HFA aerosol inhaler 1 - 2 puff INHALATION Q4H PRN PRN (Reason: Dyspnea) Label Comments: inhale 1 puff by mouth every 4 hours if needed for wheezing Zoloft 100 mg PO/SL DAILY Primary Care Provider: Daron White Referrals: Daron White MD [Primary Care Provider] - 3-5 Days Disposition Disposition: Home, Self Care
--- NOTE | 2023-03-13 20:00 | CT_ITS ---
EXAM: CT HEAD WITHOUT INTRAVENOUS CONTRAST CLINICAL INDICATION: SYNCOPE TECHNIQUE: Multiple axial images were obtained of the head without intravenous contrast. This CT exam was performed using one or more of the following dose reduction techniques: automated exposure control, adjustment of the mA and/or kV according to patient size, and/or use of iterative reconstruction technique. COMPARISON: No relevant prior studies available. FINDINGS: BRAIN AND EXTRA-AXIAL SPACES: Unremarkable. No intra- or extra-axial hemorrhage. No evidence of acute infarct. No intracranial mass or mass effect. There is preservation of the moore/white matter interface. Posterior fossa structures are unremarkable. Ventricles are appropriate for age. No hydrocephalus. Basal cisterns are patent. BONES/JOINTS: Unremarkable. No discrete lytic or blastic abnormalities. SINUSES: Unremarkable as visualized. Clear. MASTOID AIR CELLS: Unremarkable. Clear. ORBITS: Visualized globes, extraocular muscles, optic nerves and retrobulbar fat appear unremarkable. CT/Brain/Head without Contrast IMPRESSION: Negative head/brain CT without intravenous contrast. Electronically Signed: Ced Swift MD at 20:22 EDT ,
--- NOTE | 2023-03-13 20:00 | CT_ITS ---
EXAM: CT MAXILLOFACIAL WITHOUT INTRAVENOUS CONTRAST CLINICAL INDICATION: injury TECHNIQUE: Helically acquired images were obtained of the face without intravenous contrast. This CT exam was performed using one or more of the following dose reduction techniques: automated exposure control, adjustment of the mA and/or kV according to patient size, and/or use of iterative reconstruction technique. COMPARISON: No relevant prior studies available. FINDINGS: BONES/JOINTS: Unremarkable. No displaced fracture. No discrete lytic or blastic abnormalities. SOFT TISSUES: Unremarkable. No focal subcutaneous swelling. No discrete fluid collections. ORBITS: Unremarkable. Both globes are unremarkable. Extraocular muscles are normal. Retrobulbar fat appears unremarkable. SINUSES: Unremarkable as visualized. Clear. MASTOID AIR CELLS: Unremarkable as visualized. Clear. DENTAL: No acute findings. No periodontal osseous erosion. CT/Sinus/Facial Bone IMPRESSION: Negative CT facial bones without intravenous contrast. Electronically Signed: Ced Swift MD at 20:25 EDT ,
[2023-03-13 21:10] VITALS: BP 119/83; PULSE 74; RESP 16; TEMP 36.7; O2SAT 99
== END 2023-03-13 21:11 | disposition home or self-care (01) ==
PROVIDERS: Emergency Provider Emergency Medicine; PCP Family Medicine; Visit Provider Emergency Medicine
DX: R55 Syncope and collapse (principal); S01.511A Laceration without foreign body of lip, initial encounter; S00.83XA Contusion of other part of head, initial encounter; K08.89 Other specified disorders of teeth and supporting structures; W01.198A Fall on same level from slipping, tripping and stumbling with subsequent striking against other object, initial encounter; Y92.511 Restaurant or cafe as the place of occurrence of the external cause; F17.210 Nicotine dependence, cigarettes, uncomplicated
CPT/HCPCS: 70450; 70486; 99282

== ENCOUNTER → 2023-05-08 | Outpatient (CLI) | payer MEDICAID, SELFPAY ==
[2023-05-08 13:09] LABS: Absolute Lymphocyte Count 2.09 X10^3/uL (0.83-4.51); Absolute Neutrophil Count 6.8 X10^3/uL (2.0-7.7); Basophil# 0.06 X10^3/uL; Basophil% 0.6 % (0-1); Eosinophil# 0.11 X10^3/uL; Eosinophils% 1.1 % (0-5); Hemoglobin 11.1 g/dL (12.0-15.0); Lymphocyte # 2.09 X10^3/ul (0.83-4.51); Lymphocyte % 21.7 % (19-41); Mean Corp Hgb Conc 32.6 g/dL (32-36); Mean Platelet Vol. 11.4 fl (6.2-12.0); Monocyte# 0.52 X10^3/uL; Monocyte% 5.4 % (0-10); NRBC Flagged by Analyzer 0 % (0-5); Neutrophil # 6.78 X10^3/uL (2.7-7.7); Neutrophil % 70.6 % (47-70); Platelet Count 237 K/mm3 (150-450); RBC Distribution Width CV 13.2 % (11.6-14.6); RBC Distribution Width SD 47.7 fl (35.1-43.9); Red Blood Count 3.47 M/mm3 (4.2-5.4); White Blood Count 9.6 K/mm3 (4.4-11.0)
[2023-05-08 14:15] LABS: HIV - WCH Non-Reactive (Nonreactive); Hepatitis B Surface Antigen Non-Reactive (Nonreactive); Hepatitis C Antibody Non-Reactive (Nonreactive); Rubella IgG Reactive (Nonreactive); Syphilis Antibodies Non-reactive
[2023-05-10 05:07] LABS: V-Zoster IgG (Immunity) 746 index (Immune >165)
== END | disposition home or self-care (01) ==
LOC: WOBLAB 11:39
PROVIDERS: PCP Family Medicine; Visit Provider Student in an Organized Health Care Education/Training Program
DX: Z34.81 Encounter for supervision of other normal pregnancy, first trimester (principal)
CPT/HCPCS: 36415; 85025; 86703; 86762; 86780; 86787; 86803; 87086; 87340

== ENCOUNTER 2023-10-20 07:05 | Inpatient (IN) | payer MEDICAID, SELFPAY ==
[2023-10-20] VITALS (62 sets, daily range): BP systolic 93–131; BP diastolic 54–77; PULSE 57–106; TEMP 36.1–37.1; O2SAT 89–100; BMI 24.8
--- NOTE | 2023-10-20 | PLAC_PTH ---
PATHOLOGY RESULTS PATIENT: CHRISTA BROWN LOC: [facility] U#:[id number] AGE/SX: 23/F ROOM: WP018 RE10/20/[address]: Dr. Jena Kelly MD : 2000 BED: 1 DIS: 10/21/2023 SPEC #: [id number] RECD: 10/23/23 07:36 STATUS: CONOR LUIS MIGUEL #: [id number] SANJAY: 10/20/23 00:[address]: Jena Kelly DEPT: SURGICAL PATHOLOGY RECD BY: Pebbles Olivier ENTERED: 10/23/23 07:36 SP TYPE: PLACENTA OTHR DR: No Primary Care Phys Tissues: Placenta, NOS Procedures: Surgery Specimen Level V HEADER OPERATION: Vaginal delivery PRE-OP DIAGNOSIS: Tobacco and marijuana use TISSUE SUBMITTED: Placenta MICROSCOPIC DIAGNOSIS Placenta: Placental disc - third trimester placenta (355 gm). - Focal area of infarction and calcification (measuring 3.0 cm in greatest dimension). - Focal increased calcification. Membranes - no pathologic diagnosis. Umbilical cord - three blood vessels and no pathologic diagnosis. SJ:senait 10/24/2023 MICROSCOPIC DESCRIPTION Slides are reviewed. GROSS DESCRIPTION SPECIMEN: PLACENTA / CLINICAL INFORMATION: A. Weight: 2.699 kg B. Gestational Age: 40 weeks C. Sex: Male PLACENTAL WEIGHT (POST FIXATION): 355 gm PLACENTAL DIMENSIONS: The placenta is received in two pieces. The larger main piece measures 16.0 x 15.0 x 3.5 cm. The detached smaller piece measures 6.5 x 6.0 x 2.5 cm. The completeness of the placenta cannot be assessed due to fragmented nature of the specimen. PLACENTAL SHAPE: Usual ovoid. PLACENTAL WEIGHT FOR GESTATIONAL AGE: Within 10-99th percentile MEMBRANES - Present A. Insertion: Marginal B. Site of rupture from edge: 7.0 cm from edge of placental disc C. Color of membrane: Mccabe-moore D. Abnormalities: None UMBILICAL CORD - Present A. Color: Mccabe-moore B. Insertion: Paracentral C. Length: 32.0 cm D. Diameter: 1.0 cm E. Number of vessels: Three F. Abnormalities: None PLACENTAL DISC - Present A. Color of surface: Mccabe-moore B. surface abnormalities: None C. Maternal cotyledons: partly disrupted. D. Attached retro placental clot: No clot E. Cut surface: Dark red and spongy F. Lesions: Sections reveal a mccabe, indurated mass measuring 3.0 x 2.0 x 1.5 cm G. Separate clot: Absent SECTIONS SUBMITTED: 1. Membrane roll 2. Cord, maternal end 3. Cord, end and placental disc - detached piece of placenta 4. Placental disc, and maternal surfaces, lesion 5. Placental disc, and maternal surfaces 6. Placental disc, and maternal surfaces SJ:senait 10/23/2023 TC:5 CPT: 30082
--- OUTSIDE RECORDS SUMMARY | 2023-10-20 07:26 | XMS RPT_ITS | CCD ---
Author Name Unknown Address [address] [place] [address] Organization [facility] Care Team Providers Care Imcu Nurse Name Role Phone JENY CHERRY PA-C Primary Care Physician Daron Beck MD Primary Care Provider KIRAN MORENO, DARON Primary Care Physician Daron Beck MD Primary Care Provider Daron Beck MD Primary Care Provider Daron Beck MD Primary Care Provider FREDY MORENO, SUSAN Solis Attending Unavailable KIRAN MORENO, DARON Primary Care Unavailable JAREN MORENO, DR CLEMENTE Attending Unavailab mendoza BECK MD, DARON Primary Care Unavailable MELIA PRESTON MD Attending Unavailable KIRAN MORENO, DARON Primary Care Unavailable KIRAN MORENO, DARON Primary Care Unavailable PIEDAD MORENO, DR PEÑA Attending Unavailjack GARCIA MD, DR SHU Friend Attending Unavailjack BECK MD, DARON Primary Care Unavailable BRITTA LOPEZ MD Attending Unavailable KIRAN MORENO, DARON Primary Care Unavailable CAM MERCHANT DO Attending Unavailable KIRAN MORENO, DARON Primary Care Unavailable SUSAN DANIEL MD Attending Unavailable DARON BECK MD Primary Care Unavailable DARON BECK Primary Care Unavailable IVA MAN Attending Unavailable DARON BECK Primary Care Unavailable DARON BECK Primary Care Unavailable KATHY JO Attending Unavailable RONNA DAMON Referring Unavailable DARON BECK Primary Care Unavailable ISA PEDRAZA Attending Unavailable DARON BECK Primary Care Unavailable ISA PEDRAZA Referring Unavailable DARON BECK Primary Care Unavailable ZAK LINDSAY Attending Unavailable DARON BECK Primary Care Unavailable KIRANDARON Evans Primary Care Unavailable CONNOR PEDRAZASSICA Referring Unavailable CHRISTA ABRAHAM Attending Unavailable DARON BECK Primary Care Unavailable KIRANDARON Evans Primary Care Unavailable JENA PORTILLO Attending Unavail able ZAK LINDSAY Attending Unavailable DARON BECK Primary Care Unavailable DARON BECK Primary Care Unavailable JENA PORTILLO Attending Unavail able LOURDES VAZQUEZ Attending Unavailable KIRANDARON Evans Primary Care Unavailable CHRISTA [facility]RAHAM [facility] Unavailable Allergies Allergy Classification Reported Allergen(s) Allergy Type Date of Onset Reaction(s) Facility (20 sources) Amoxicillin / Clavulanate; Translations: [amoxicillin-cl avulanate] Drug Allergy 1 Other: See [facility] (1 source) AMOXICILLIN-POT CLAVULANATE; Translations: [AMOXICILLIN-PO T CLAVULANATE] Propensity to adverse reactions to drug (disorder) 1 [facility] Repository Medications Current Medications Medication Drug Class(es) Dates Sig (Normalized) Sig (Original) Albuterol (Eqv-ProAir HFA) 90 mcg/inh inhalation aerosol (9 sources) Start: 08-02-2021 take 1 dose by inhalation every four hours as needed for wheezing Albuterol (Eqv-ProAir HFA) 90 mcg/inh inhalation aerosol Dose = 2 puff(s), Inhalation, q4h, PRN Wheezing, 0 Refill(s) Start Date: 08/02/21 Status: Ordered Diclegis 10 mg-10 mg oral delayed release tablet (2 sources) Start: 07-10-2021 take 1 tablet by mouth once daily at bedtime Diclegis 10 mg-10 mg oral delayed release tablet Dose = 2 tab(s), Oral, qHS, # 60 tab(s), 0 Refill(s), Vomiting of Start Date: 07/10/21 Status: Ordered doxycycline monohydrate 100 mg oral tablet (1 source) Tetracycline-clas s Drug Start: 09-09-2022 End: 09-19-2022 take 1 tablet by mouth twice daily doxycycline monohydrate 100 mg tablet Indications: Dog bite of left hand, initial encounter Take 1 tablet by mouth twice daily for 10 days. 20 tablet 0 09/09/2022 09/19/2022 Active Completed/Discontinued Medications Medication Drug Class(es) Dates Sig (Normalized) Sig (Original) Albuterol (10 sources) beta2-Adrenergic Agonist Start: 08-02-2021 ALBUTEROL INHALATION Inhale as instructed. 0 08/02/2021 Active Problems Active Problems Problem Classification Problem Date Documented Da te Episodic/Chronic Abdominal pain (1 source) Abdominal pain; Translations: [Unspecified abdominal pain] Onset: 06-03-2022 Episodic Anxiety disorders (13 sources) Anxiety; Translations: [Mixed anxiety and depressive disorder] 08-03-2015 Chronic Diabetes or abnormal glucose tolerance complicating ; childbirth; or the puerperium (9 sources) Gestational diabetes mellitus, class A>1< 08-02-2015 Episodic Disorders of teeth and jaw (1 source) Toothache; Translations: [Other specified disorders of teeth and supporting structures] Episodic Epilepsy; convulsions (20 sources) Epilepsy, not refractory; Translations: [Epileptic seizures related to external causes, not intractable, without status epilepticus] Onset: 12-07-2021 12-07-2021 Chronic Epilepsy; convulsions (9 sources) Seizure 12-26-2013 Episodic Headache; including migraine (1 source) Frontal headache ; Translations: [Frontal headache] Episodic Hemorrhage during ; abruptio placenta; placenta previa (7 sources) Placenta previa marginalis; Translations: [Partial placenta previa NOS or without hemorrhage, unspecified trimester] Onset: 07-10-2023 07-10-2023 Episodic Miscellaneous mental health disorders (1 source) Primary insomnia; Translations: [Primary insomnia] Chronic Open wounds of extremities (2 sources) Laceration of lower leg; Translations: [Laceration without foreign body, unspecified lower leg, initial encounter] Onset: 10-14-2021 Episodic Other complications of (19 sources) Maternal tobacco use; Translations: [Smoking (tobacco) complicating , unspecified trimester] Onset: 07-10-2023 08-03-2015 Episodic Other complications of (12 sources) Late entry into care; Translations: [Supervision of with insufficient care, unspecified trimester] Onset: 07-10-2023 07-10-2023 Episodic Other complications of (10 sources) Nausea and vomiting; Translations: [Vomiting of , unspecified] Onset: 07-10-2023 07-10-2023 Episodic Other complications of (8 sources) History of gestational diabetes mellitus; Translations: [Supervision of with other poor reproductive or obstetric history, unspecified trimester] Onset: 07-28-2023 07-28-2023 Episodic Other disorders of stomach and duodenum (1 source) Cyclical vomiting syndrome; Translations: [Cyclical vomiting syndrome unrelated to migraine] Episodic Other ear and sense organ disorders (4 sources) Otitis externa; Translations: [Unspecified otitis externa, unspecified ear] Onset: 09-08-2022 Chronic Other ear and sense organ disorders (1 source) Bilateral earache; Translations: [Otalgia, bilateral] 07-11-2023 Episodic Other injuries and conditions due to external causes (1 source) Traumatic AND/OR non-traumatic injury; Translations: [Injury, unspecified, initial encounter] Onset: 07-08-2022 Episodic Other injuries and conditions due to external causes (1 source) Injury of head; Translations: [Unspecified injury of head, initial encounter] Episodic Other injuries and conditions due to external causes (1 source) Injury of right hand; Translations: [Unspecified injury of right wrist, hand and finger(s), initial encounter] Episodic Other injuries and conditions due to external causes (1 source) Injury of right wrist; Translations: [Unspecified injury of right wrist, hand and finger(s), initial encounter] Episodic Other and delivery including normal (20 sources) ; Translations: [Teenage ] Onset: 07-10-2023 07-02-2021 Episodic Past or Other Problems Problem Classification Problem Date Documented Da te Episodic/Chronic Other complications of (1 source) Supervision of with insufficient care, unspecified trimester; Translations: [Late care] Onset: 07-10-2023 Episodic Other ear and sense organ disorders (1 source) Otalgia, bilateral; Translations: [Ear pain, bilateral] Onset: 07-11-2023 Episodic Spondylosis; intervertebral disc disorders; other back problems (20 sources) Chronic low back pain; Translations: [Lumbago with sciatica, left side] Onset: 06-21-2021 06-21-2021 Episodic Results Test Name Value Interpretation Reference Range Facil ity Vital Signs Date Time Vital Sign Value Performing Clinician Facility 09-07-2023 13:38-0500 Body weight 59.88 kg Jena Kelly MD Work Phone: [facility] 09-07-2023 13:38-0500 Diastolic blood pressure 62 mm[Hg] Jena Kelly MD Work Phone: [facility] 09-07-2023 13:38-0500 Systolic blood pressure 110 mm[Hg] Jena Kelly MD Work Phone: [facility] 08-24-2023 10:51-0500 Body weight 57.15 kg Christa Abraham TRAUMA THERAPIST.CNM Work Phone: [facility] 08-24-2023 10:51-0500 Diastolic blood pressure 62 mm[Hg] Christa Syedts TRAUMA THERAPIST.CNM Work Phone: [facility] 08-24-2023 10:51-0500 Systolic blood pressure 100 mm[Hg] Christa Abraham TRAUMA THERAPIST.CNM Work Phone: [facility] 08-17-2023 17:00-0500 Body height 63 cm BRITTA LOPEZ MD [facility] 08-17-2023 17:00-0500 Body weight 56.8 kg BRITTA LOPEZ MD [facility] 08-17-2023 17:00-0500 Body weight 143.11 kg/m2 BRITTA LOPEZ MD [facility] 08-17-2023 16:15-0500 Heart rate 84 /min BRITTA LOPEZ MD [facility] 08-17-2023 15:45-0500 Body temperature 98.24 [degF] BRITTA LOPEZ MD [facility] 08-17-2023 15:45-0500 Diastolic Blood Pressure Non-Invasive 77 1 BRITTA LOPEZ MD [facility] 08-17-2023 15:45-0500 Heart rate 91 /min BRITTA LOPEZ MD [facility] 08-17-2023 15:45-0500 Reason For Taking VItal Signs BRITTA LOPEZ MD [facility] 08-17-2023 15:45-0500 Respiratory rate 16 /min BRITAT LOPEZ MD [facility] 08-17-2023 15:45-0500 Systolic Blood Pressure Non-Invasive 123 1 BRITTA LOPEZ MD [facility] 07-28-2023 08:40-0400 Body height 162.6 cm Isa Pedraza TRAUMA THERAPIST.CNM Work Phone: [facility] 07-28-2023 08:40-0400 Body weight 55.34 kg Isa Pedraza TRAUMA THERAPIST.CNM Work Phone: [facility] 07-28-2023 08:40-0400 Diastolic blood pressure 60 mm[Hg] Isa Pedraza TRAUMA THERAPIST.CNM Work Phone: [facility] 07-28-2023 08:40-0400 Systolic blood pressure 102 mm[Hg] Isa Pedraza TRAUMA THERAPIST.CNM Work Phone: [facility] 07-11-2023 15:26-0400 Diastolic blood pressure 70 mm[Hg] Kathy Haagen TRAUMA THERAPIST.CHIROPRACTOR SOLE PRACTITIONER Work Phone: [facility] 07-11-2023 15:26-0400 Heart rate 108 /min Kathy Haagen TRAUMA THERAPIST.CHIROPRACTOR SOLE PRACTITIONER Work Phone: [facility] 07-11-2023 15:26-0400 Respiratory rate 16 /min Kathy Haagen TRAUMA THERAPIST.CHIROPRACTOR SOLE PRACTITIONER Work Phone: [facility] 07-11-2023 15:26-0400 SaO2% (BldA) [Mass fraction] 97 % Kathy Verayoko TRAUMA THERAPIST.CHIROPRACTOR SOLE PRACTITIONER Work Phone: [facility] 07-11-2023 15:26-0400 Systolic blood pressure 110 mm[Hg] Kathy Deysi TRAUMA THERAPIST.CHIROPRACTOR SOLE PRACTITIONER Work Phone: [facility] 03-13-2023 17:19-0400 Body height 162.[address] MARIANA HERBERT MD [facility] 03-13-2023 17:19-0400 Body temperature 98.78 [degF] DR MARIANA HERBERT MD [facility] 03-13-2023 17:19-0400 Body weight [address] MARIANA HERBERT MD [facility] 03-13-2023 17:19-0400 Diastolic Blood Pressure Non-Invasive [address] MARIANA HERBERT MD [facility] 03-13-2023 17:19-0400 Heart rate 92 /min DR MARIANA HERBERT MD [facility] 03-13-2023 17:19-0400 Respiratory rate 16 /min DR MARIANA HERBERT MD [facility] 03-13-2023 17:19-0400 Systolic Blood Pressure Non-Invasive [address] MARIANA HERBERT MD [facility] 10-17-2022 09:46-0500 Body weight 53.98 kg NA Oleary PA-C Work Phone: [facility] 10-17-2022 09:46-0500 Diastolic blood pressure 62 mm[Hg] NA Oleary PA-C Work Phone: [facility] 10-17-2022 09:46-0500 Heart rate 113 /min NA Oleary PA-C Work Phone: [facility] 10-17-2022 09:46-0500 Respiratory rate 16 /min NA Oleary PA-C Work Phone: [facility] 10-17-2022 09:46-0500 SaO2% (BldA) [Mass fraction] 98 % NA Oleary PA-C Work Phone: [facility] 10-17-2022 09:46-0500 Systolic blood pressure 110 mm[Hg] NA Oleary PA-C Work Phone: [facility] 09-09-2022 09:32-0500 Body weight 58.06 kg Daron Beck MD Work Phone: [facility] 09-09-2022 09:32-0500 Diastolic blood pressure 72 mm[Hg] Daron Beck MD Work Phone: [facility] 09-09-2022 09:32-0500 Heart rate 86 /min Daron Beck MD Work Phone: [facility] 09-09-2022 09:32-0500 SaO2% (BldA) [Mass fraction] 98 % Daron Beck MD Work Phone: [facility] 09-09-2022 09:32-0500 Systolic blood pressure 102 mm[Hg] Daron Beck MD Work Phone: [facility] 09-08-2022 12:20-0500 Body temperature 98.42 [degF] DR SHU GARCIA MD [facility] 09-08-2022 12:20-0500 Diastolic Blood Pressure Non-Invasive [address] SHU GARCIA MD [facility] 09-08-2022 12:20-0500 Heart rate 81 /min DR SHU GARCIA MD [facility] 09-08-2022 12:20-0500 Respiratory rate 16 /min DR SHU GARCIA MD [facility] 09-08-2022 12:20-0500 Systolic Blood Pressure Non-Invasive [address] SHU GARCIA MD [facility] 08-22-2022 15:39-0500 Body temperature 98.01 [degF] [facility] TRAUMA THERAPIST.CHIROPRACTOR SOLE PRACTITIONER Work Phone: [facility] 08-22-2022 15:39-0500 Body weight 57.06 [facility] TRAUMA THERAPIST.CHIROPRACTOR SOLE PRACTITIONER Work Phone: [facility] 08-22-2022 15:39-0500 Diastolic blood pressure 84 mm[Hg] [facility] TRAUMA THERAPIST.CHIROPRACTOR SOLE PRACTITIONER Work Phone: [facility] 08-22-2022 15:39-0500 Heart rate 99 /min [facility] TRAUMA THERAPIST.CHIROPRACTOR SOLE PRACTITIONER Work Phone: [facility] 08-22-2022 15:39-0500 Respiratory rate 18 /min [facility] TRAUMA THERAPIST.CHIROPRACTOR SOLE PRACTITIONER Work Phone: [facility] 08-22-2022 15:39-0500 SaO2% (BldA) [Mass fraction] 99 % [facility] TRAUMA THERAPIST.CHIROPRACTOR SOLE PRACTITIONER Work Phone: [facility] 08-22-2022 15:39-0500 Systolic blood pressure 110 mm[Hg] [facility] TRAUMA THERAPIST.CHIROPRACTOR SOLE PRACTITIONER Work Phone: [facility] 07-18-2022 14:46-0400 Body weight 58.15 kg NA Oleary PA-C Work Phone: [facility] 07-18-2022 14:46-0400 Diastolic blood pressure 72 mm[Hg] NA Oleary PA-C Work Phone: [facility] 07-18-2022 14:46-0400 Heart rate 82 /min NA Oleary PA-C Work Phone: [facility] 07-18-2022 14:46-0400 Respiratory rate 16 /min NA Oleary PA-C Work Phone: [facility] 07-18-2022 14:46-0400 Systolic blood pressure 106 mm[Hg] NA Oleary PA-C Work Phone: [facility] 07-08-2022 16:45-0400 Body height 160 cm TANNA WESTBROOK MD [facility] 07-08-2022 16:45-0400 Body weight 54.5 kg TANNA WESTBROOK MD [facility] 07-08-2022 16:45-0400 Diastolic blood pressure 84 mm[Hg] TANNA WESTBROOK MD [facility] 07-08-2022 16:45-0400 Heart rate 78 /min TANNA WESTBROOK MD [facility] 07-08-2022 16:45-0400 Respiratory rate 20 /min TANNA WESTBROOK MD [facility] 07-08-2022 16:45-0400 Systolic blood pressure 125 mm[Hg] TANNA WESTBROOK MD [facility] 06-03-2022 07:41-0400 Diastolic blood pressure 72 mm[Hg] MELIA PRESTON MD [facility] 06-03-2022 07:41-0400 Heart rate 72 /min MELIA PRESTON MD [facility] 06-03-2022 07:41-0400 Respiratory rate 16 /min MELIA PRESTON MD [facility] 06-03-2022 07:41-0400 Systolic blood pressure 108 mm[Hg] MELIA PRESTON MD [facility] 06-03-2022 05:13-0400 Body height 160 cm MELIA PRESTON MD [facility] 06-03-2022 05:13-0400 Body temperature 98.24 [degF] MELIA PRESTON MD [facility] 06-03-2022 05:13-0400 Body weight 54.5 kg MELIA PRESTON MD [facility] 06-03-2022 05:13-0400 Diastolic blood pressure 89 mm[Hg] MELIA PRESTON MD [facility] 06-03-2022 05:13-0400 Heart rate 86 /min MELIA PRESTON MD [facility] 06-03-2022 05:13-0400 Respiratory rate 18 /min MELIA PRETSON MD [facility] 06-03-2022 05:13-0400 Systolic blood pressure 131 mm[Hg] MELIA PRESTON MD [facility] 04-04-2022 05:57-0400 Body temperature 97.7 [degF] JAKE YA MD [facility] 04-04-2022 05:57-0400 Diastolic blood pressure 87 mm[Hg] JAKE YA MD [facility] 04-04-2022 05:57-0400 Heart rate 67 /min JAKE YA MD [facility] 04-04-2022 05:57-0400 Mean blood pressure 101 mm[Hg] JAKE YA MD [facility] 04-04-2022 05:57-0400 Respiratory rate 18 /min JAKE YA MD [facility] 04-04-2022 05:57-0400 Systolic blood pressure 129 mm[Hg] JAKE YA MD [facility] 03-20-2022 11:18-0400 Body temperature 97.88 [degF] CAM MERCHANT DO [facility] 03-20-2022 11:18-0400 Diastolic blood pressure 90 mm[Hg] CAM MERCHANT DO [facility] 03-20-2022 11:18-0400 Heart rate 67 /min CAM MERCHANT DO [facility] 03-20-2022 11:18-0400 Respiratory rate 18 /min CAM MERCHANT DO [facility] 03-20-2022 11:18-0400 Systolic blood pressure 131 mm[Hg] CAM MERCHANT DO [facility] 03-14-2022 11:38-0400 Body temperature 97.9 [degF] Hans Garcia MD Work Phone: [facility] 03-14-2022 11:38-0400 Body weight 53.62 kg Hans Garcia MD Work Phone: [facility] 03-14-2022 11:38-0400 Diastolic blood pressure 64 mm[Hg] Hans Garcia MD Work Phone: [facility] 03-14-2022 11:38-0400 Heart rate 65 /min Hans Garcia MD Work Phone: [facility] 03-14-2022 11:38-0400 Respiratory rate 20 /min Hans aGrcia MD Work Phone: [facility] 03-14-2022 11:38-0400 SaO2% (BldA) [Mass fraction] 98 % Hans Garcia MD Work Phone: [facility] 03-14-2022 11:38-0400 Systolic blood pressure 100 mm[Hg] Hans Garcia MD Work Phone: [facility] 11-23-2021 10:10-0500 Body height 162.6 cm MELIA PRESTON MD [facility] 11-23-2021 10:10-0500 Body temperature 98.24 [degF] MELIA PRESTON MD [facility] 11-23-2021 10:10-0500 Body weight 54.5 kg MELIA PRESTON MD [facility] 11-23-2021 10:10-0500 Diastolic blood pressure 75 mm[Hg] MELIA PRESTON MD [facility] 11-23-2021 10:10-0500 Heart rate 98 /min MELIA PRESTON MD [facility] 11-23-2021 10:10-0500 Respiratory rate 24 /min MELIA PRESTON MD [facility] 11-23-2021 10:10-0500 Systolic blood pressure 104 mm[Hg] MELIA PRESTON MD [facility] 10-14-2021 15:38-0500 Body temperature 98.78 [degF] DR JAMILA FLORENCE DO [facility] 10-14-2021 15:38-0500 Diastolic blood pressure 76 mm[Hg] DR JAMILA FLORENCE DO [facility] 10-14-2021 15:38-0500 Heart rate 98 /min DR JAMILA FLORENCE DO [facility] 10-14-2021 15:38-0500 Respiratory rate 16 /min DR JAMILA FLORENCE DO [facility] 10-14-2021 15:38-0500 Systolic blood pressure 117 mm[Hg] DR JAMILA FLORENCE DO [facility] Encounters Encounter Date Encounter Type Care Provider Facility Start: 10-16-2023 ambulatory DARON BECK Facility :[facility] Start: 10-12-2023 End: 10-12-2023 ambulatory CHRISTA ABRAHAM Facility:[facility] Start: 10-04-2023 End: 10-04-2023 ambulatory LOURDES VAZQUEZ Facility:[facility] Start: 09-27-2023 End: 09-27-2023 ambulatory [facility] Facility:[facility] Start: 09-21-2023 End: 09-21-2023 ambulatory ZAK LINDSAY Facility:[facility] Start: 09-07-2023 End: 09-07-2023 ambulatory [facility] Facility:[facility] Start: 09-07-2023 End: 09-07-2023 Patient encounter procedure Jena Kelly MD Work Phone: OB/Gynecology Procedures Date Procedure Procedure Detail Performing Clinician Start: 09-07-2023 URINE OB DIP B/O Jena Kelly MD Work Phone: Start: 08-24-2023 URINE OB DIP B/O Nora Abraham TRAUMA THERAPIST.CNM Work Phone: Start: 08-24-2023 Us preg uterus after 1st trimest 10/09 gestation Isa Pedraza APRN.YOM Work Phone: Start: 07-26-2023 Us preg uterus after 1st trimest 10/09 gestation Ronna Damon MD Work Phone: Start: 05-08-2023 Antibody screen Isa Pedraza APRN.CNM Work Phone: Start: 05-08-2023 CBC panel - Blood by Automated count [facility] Start: 05-08-2023 HEP B SURF AG SCRN [facility] Start: 05-08-2023 HEPATITIS C ANTIBODY IA WITH CONFIRMATION [facility] Start: 05-08-2023 HIV 1 2 COMBO(AG/AB) ,WITH REFLEX TO DIFFERENTIATION [facility] Start: 05-08-2023 RUBELLA IGG AB [facility] Prov ider Start: 05-08-2023 SYPHILIS TOTAL W/REFLEX [facility] Start: 05-08-2023 TYPE + SCREEN (EXTERNAL LAB) [facility] Start: 10-17-2022 Drug tst prsmv instr mnt chem analyzers pr date M Keven Oleary PA-C Work Phone: None (qualifier value) DR LOTUS FLORENCE DO Plan of Treatment Date Care Activity Detail Author Start: 08-10-2033 Urine microalbumin profile DTaP,Tdap,Td Vaccine (4 - Td or Tdap) [facility] Start: 10-14-2031 Urine microalbumin profile [facility] Start: 07-28-2023 End: 10-27-2023 CBC W Auto Differential panel - Blood CBC + DIFF Lab Routine Encounter for supervision of normal in multigravida 28 weeks gestation of Expected: 07/28/2023, Expires: 10/27/2023 [facility] Work Phone: Immunizations Immunization Date Immunization Notes Care Provider Jordan cristina 08-10-2023 tetanus toxoid, redu deion diphtheria toxoid, and acellular pertussis vaccine, adsorbed Christa Abraham APRN.CNM Work Phone: [facility] 10-14-2021 tetanus toxoid, redu deion diphtheria toxoid, and acellular pertussis vaccine, adsorbed; Translations: [Boostrix (Tdap)] DR JAMILA FLORENCE DO [facility] 08-05-2015 measles, mumps and rubella virus vaccine DR JAMILA FLORENCE DO [facility] 08-04-2015 tetanus toxoid, redu deion diphtheria toxoid, and acellular pertussis vaccine, adsorbed DR JAMILA FLORENCE DO [facility] Payers Date Payer Category Payer Unknown [id number] 2022 Unknown [id number] 2021 Medicaid [employer] [id number] [place] [address] [place] [id number] Medicaid [id number] 2021 Medicaid [id number] 1998 Unknown [id number] 1998 Unknown [id number] 1998 Unknown [id number] 1998 Unknown [id number] 1998 Unknown [id number] 1998 Unknown [id number] 1998 Unknown [id number] 1998 Unknown [id number] Social History Date Type Detail Facility Start: 02-01-2021 Heavy tobacco smoker (finding) [facility] Sex Assigned At Female [facility] Start: 06-04-2021 End: 07-10-2023 Tobacco smoking status NHIS Smokes tobacco daily [facility] Start: 06-04-2021 End: 07-10-2023 Tobacco use and exposure Smokeless tobacco non-user [facility] Start: 03-14-2022 End: 06-28-2023 Alcohol intake Lifetime non-drinker (finding) [facility] Start: 12-07-2021 History SDOH Alcohol Frequency 1 [facility] Start: 06-04-2021 End: 07-18-2022 Tobacco Comment smokes a little over 1/2 pack per day [facility] Start: 2000 Sex Assigned At Not on file [facility] Start: 03-04-2022 End: 09-09-2022 Exposure to SARS-CoV-2 (event) Not sure [facility] Work Phone: History of tobacco use Cigarette Smoker [facility] Start: 06-28-2023 End: 07-28-2023 History of Social function [facility] Start: 06-28-2023 End: 07-28-2023 Tobacco use panel [facility] National Score (1-10 0), lower number is lower risk 51 [facility] Start: 01-27-2023 [facility] Start: 07-10-2023 End: 08-24-2023 Alcohol intake Ex-drinker (finding) [facility] Start: 07-10-2023 Education 9 [facility] Start: 07-10-2023 Alcohol Comment rarely [facility] Goals Date Patient Goal Desired Activity /State Personal health goal Functional Status Date Assessment Result Facility 08-17-2023 Functional Status Standard Safet y Call device within reach, Bed in low position, Wheels locked, Upper/Half-Length side-rails up, Phone within reach, personal items within reach [facility] 09-08-2022 Functional Status ID band on, Allergy Band on, Call device within reach, Bed in low position, Wheels locked, Bedside Cart Locked, Visitor at bedside, Safety level maintained [facility] 07-08-2022 Functional Status Resting [facility] 06-03-2022 Functional Status Up ad doreen [facility] 06-03-2022 Functional Status Standard Safet y ID band on, Allergy Band on, Call device within reach, Bed in low position, Wheels locked, Upper/Half-Length side-rails up, personal items within reach [facility] 04-04-2022 Functional Status ID band on, Allergy Band on, Call device within reach, Bed in low position, Wheels locked, Upper/Half-Length side-rails up, Phone within reach, personal items within reach, Safety level maintained [facility] 03-20-2022 Functional Status ID band on, Call device within reach, Bed in low position, Wheels locked, Upper/Half-Length side-rails up, Phone within reach, personal items within reach, Assistive devices within reach, Toileting device within reach, Bedside Cart Locked, Visitor at bedside, Safety level maintained [facility] Mental Status Date Assessment Result Facility 08-17-2023 Mental Status Orientation Oriented x 4 [facility] 08-17-2023 Mental Status [facility] 09-08-2022 Mental Status Oriented x 4 [facility] 07-08-2022 Mental Status Orientation Oriented x 4 [facility] 06-03-2022 Mental Status Orientation Oriented x 4 [facility] 06-03-2022 Mental Status [facility] 04-04-2022 Mental Status Oriented x 4 [facility] 03-20-2022 Mental Status Orientation Oriented x 4 [facility] Clinical Notes 10-14-2021 to 09-27-2023 Quick Notes - Jena Portillo MD - 09/07/2023 1:57 PM ESTPatient InstructionsTelephone Encounter - Nasra Aguirre RN - 09/01/2023 9:19 AM ESTPatient Instructions Note Date & Type Note Facility 09-27-2023 Note HNO ID: [id number] Author: Iva Man APRN.CHIROPRACTOR SOLE PRACTITIONER Service: ? Author Type: Nurse Practitioner Type: Procedures Filed: 09/27/2023 2:30 PM Note Text: NST SUMMARY PROVIDER ASSESSMENT AND INTERPRETATION Indications for NST: Other: Suspected bradycardia with doppler Baseline: 115 Variability: Moderate Accelerations: Present 15 X 15 Decelerations: None Interpretation: Reactive SIGNATURE: Read by Dr. Evie Man APRN.CHIROPRACTOR SOLE PRACTITIONER [facility] [place] 09-07-2023 Miscellaneous Notes Formattin g of this note might be different from the original. DM-Pt doing well. Denies vaginal Bleeding, Leaking fluid, or regular Contractions. Pt reports good movement Physical Exam: Gen: female in no apparent distress Abd: soft, Gravid. Non tender to palpation. See flow sheet A/P: @ 33.6 weeks 1) work letter- restrict to 40 hr work week 2) kick counts and labor reviewed 3) RTO 2 wks Jena Dash MD documented in this encounter [facility] 09-07-2023 Instructions Sidra Brian Ma - 09/07/2023 1:35 PM EST SEQUENTIAL SCREENINGS The [facility] offers sequential screenings for women who are interested in screenings for chromosomal abnormalities and certain defects during a . The sequential screen combines ultrasound and blood tests to determine the risk of chromosomal abnormalities, including Down's Syndrome (Trisomy 21) and Trisomy 18, as well as open neural tube defects including spina bifida. Ultrasound examination is performed between 11 weeks and 13 weeks gestational age. Blood tests are drawn after the ultrasound and again later in the between 15 and 21 weeks gestational age. Please let your physician know if you are interested in this testing. It will require an appointment with our robotics technician. This is not an ultrasound performed by a physician in our office during a routine visit. SIGNS AND SYMPTOMS OF LABOR 1. Contractions every 10 minutes or more often 2. Clear, pink, or brownish fluid (water) leaking from vagina 3. Feeling that baby is pushing down, pressure 4. Low, dull backache 5. Cramps that feel like a period 6. Cramps with or without diarrhea If you notice any of the above symptoms, contact our office at [phone] and ask to speak with a nurse. After hours, you can call doctors registry at [phone] OR call [facility] at [phone] and ask to have the doctor distribution sales representative paged. If you consider this an emergency, dial 9-5-0 or go to your nearest emergency department. NEED HELP? Are you dealing with a violent or abusive relationship? Are you a victim of rape or sexual assult? Call [facility] ([place]) 24 hour Crisis Hotline: 189.918.5157 or 993-496-2173. MANUAL Your Guide to a Healthy manual is now on-line. Visit [email or web address] to download your free copy documented in this encounter [facility] 09-01-2023 Miscellaneous Notes Formattin g of this note might be different from the original. 2nd risk assessment form submitted 09/01/23 Nasra Aguirre RN documented in this encounter [facility] 08-24-2023 Miscellaneous Notes Formattin g of this note might be different from the original. S: Christa Brown is a 22 year old female who presents at 31.6 for a routine visit. Just completed growth US- EFW 28%, LAURA 12. Feeling good. Positive movement. Denies any cramps or contractions. Working a lot of hours on feet with no breaks. Will write letter for timed breaks at work. Recommended wearing compression stockings as well. Denies headache, visual changes, chest pain, shortness of breath, vaginal bleeding, leakage of fluid, or dysuria. Feeling well overall. O: See flow sheet Gen: No apparent distress Abd: Gravid, non tender ASSESSMENT/PLAN: 1. with care elsewhere, antepartum - ICD9: V22.1, ICD10: Z34.90 (primary diagnosis) 2. 31 weeks gestation of - ICD9: V22.2, ICD10: Z3A.31 P: 1) PTL precautions reviewed and when to call 2) RTO 2 weeks or sooner if needed Christa Abraham APRN.CNM documented in this encounter [facility] 08-24-2023 Instructions Andrew Rizzo Cma 08/24/2023 10:44 AM EST SEQUENTIAL SCREENINGS The [facility] offers sequential screenings for women who are interested in screenings for chromosomal abnormalities and certain defects during a . The sequential screen combines ultrasound and blood tests to determine the risk of chromosomal abnormalities, including Down's Syndrome (Trisomy 21) and Trisomy 18, as well as open neural tube defects including spina bifida. Ultrasound examination is performed between 11 weeks and 13 weeks gestational age. Blood tests are drawn after the ultrasound and again later in the between 15 and 21 weeks gestational age. Please let your physician know if you are interested in this testing. It will require an appointment with our robotics technician. This is not an ultrasound performed by a physician in our office during a routine visit. SIGNS AND SYMPTOMS OF LABOR 1. Contractions every 10 minutes or more often 2. Clear, pink, or brownish fluid (water) leaking from vagina 3. Feeling that baby is pushing down, pressure 4. Low, dull backache 5. Cramps that feel like a period 6. Cramps with or without diarrhea If you notice any of the above symptoms, contact our office at [phone] and ask to speak with a nurse. After hours, you can call doctors registry at [phone] OR call [facility] at [phone] and ask to have the doctor distribution sales representative paged. If you consider this an emergency, dial or go to your nearest emergency department. NEED HELP? Are you dealing with a violent or abusive relationship? Are you a victim of rape or sexual assult? Call [facility] ([place]) 24 hour Crisis Hotline: 150.786.5438 or 442-621-7889. MANUAL Your Guide to a Healthy manual is now on-line. Visit [email or web address] to download your free copy documented in this encounter [facility] 08-17-2023 Hospital Discharg e instructions Patient Education 08/17/2023 17:30:52 7 - Labor and Delivery Outpatient Instructions (CUSTOM) [facility] OUTPATIENT HOME-GOING INSTRUCTIONS _X_ You are to follow up with your physician in ___ days/weeks. ACTIVITY ___ Bedrest __x_Activity as tolerated ___ No work/school for ___ days. ___Other NAUSEA/VOMITING URINARY TRACT INFECTION __x_ Drink 8-12 glasses of water every day. _x__ Urinate frequently; do not limit fluids to reduce frequency of urination. _x__ Call your physician if burning and frequency with urination _x__ Call your physician if you have a temperature of 100.4 degrees Fahrenheit or higher. ___ Wipe from front to back. SIGNS OF PRE-ECLAMPSIA __x_ Severe heartburn. __x_ Persistent headache not relieved by Tylenol. __x_ Increased in swelling of face, hands and feet. _x__ Blurred vision, double vision, or spots in the eyes. _x__ Persistent vomiting. _x__ *Convulsions or seizures Call your physician if you experience: __x_ Increase in vaginal discharge, leaking fluid, or vaginal bleeding. __x_ More than 4, 5, or 6 contractions in one hour. _x__ Burning and frequency with urination. DECREASED MOVEMENT _x__ Lie down on your left side, drink some fluids and relax. Count the movements. You need to have 10 movements in 2 hours. __x_ If you do not feel the 10 movements, call your physian ___ LABOR Call your physician if you experience: _x__ Painful uterine contractions every __5_ minutes for _1__ hours. _x__A gush or continuous trickle of watery discharge. COME TO THE HOSPITAL AND CALL PHYSICIAN IF: __x_ Your abdomen feels continually firm. _x__ *Bleeding is bright red and enough to saturate a pad in one hour or less. *Call 911 or go to the nearest Emergency Room for assistance. Form [id number] D: 09/16 Document Released: 09/25/2006 Document Revised: 09/13/2012 Document Reviewed: 09/25/2006 [facility] Information 2012 [employer]. Follow Up Care 08/17/2023 15:26:49 With:Follow up with primary care provider Address:Unknown When: Unknown [facility] 08-17-2023 Nurse Progress note Pt reports, I woke up in middle of the night with a tightness feeling here (Pointing to symphysis pubis area) , then became sharp, it made me cry. Its been like this for 14 hrs now, but I still went to work. I kept crying at work. Pt rates pain an 8-9, radiating lower back to lower abdomen now, continuous and sharp x 14 hr. Denies injury, denies lifting anything at work. Denies urinary sx. States she was nauseated this morning, but has been this way throughout , took her Zofran and that helped. Also report some chills, maybe a fever earlier today. VSS at this time Category 1 on monitor, no contractions noted, abdomen soft, Urine specimen obtained, is clear yellow. Pt states she was a pt of [facility], but has transferred to [facility], but doesn't know who her provider is. Says she was told from US there that her placenta is covering her cervix or is blocking the baby . Denies vaginal bleeding, states she has noticed a Wetness vaginally doesn't know if it's urine or what-put toilet paper in underwear, changed it twice and panties were wet. States fluid is clear. Pt also share hx of: Epilepsy, last seizure Months ago and is on no meds, Hx of Asthma, on Albuterol, last use 2 months ago, Hx of Vertebrae fused, needs surgery sometime, has chronic LBP. Pt is , Living 3 ( Her 7 week son 2019). VARUN 10/20/2023. Orders received for ABdominal US state, Amnisure and UA. Digitally Signed by GUILLERMO Khanna on 08/17/2023 07:02 PM [facility] 08-10-2023 Note HNO ID: [id number] Author: s Meghana Chaudhary Service: ? Author Type: ? Type: Progress Notes Filed: 08/10/2023 11:03 AM Note Text: Patient identified by name and date of . Christa Brown presents today for a vaccination of Tdap. Patient denies an allergy to latex: yes Patient denies a severe (life-threatening) allergy to a previous dose of Tdap, DTP, DTaP, DT or Td vaccine. Yes Patient denies history of epilepsy or neurological problems: Patient has Epilepsy Patient is afebrile and denies being moderately or severely ill: Yes Patient denies history of Guillain-Sheridan Syndrome (a severe paralytic illness): Yes Tdap Adacel injection was given without incident. See immunizations for details of immunizations administered today. VIS sheet provided: Yes Provider Zak Lindsay MD was present in office at time of injection. [facility] [place] 08-02-2023 Miscellaneous Notes Formattin g of this note might be different from the original. Patient called back. Given message. Transferred to lockstitch front maker. Patient did not view vendome 1699 message. Attempted to call patient. Unable to leave message. Xena Cuevas RN ----- Message from Ronna Damon MD sent at 07/31/2023 1:47 PM EDT ----- Add to record Will need repeat growth US 4 weeks documented in this encounter [facility] 08-01-2023 Miscellaneous Notes Formattin g of this note might be different from the original. 1st risk assessment form submitted 08/01/23 Renu Hatfield RN documented in this encounter [facility] 07-28-2023 Note HNO ID: [id number] Author: Isa Pedraza APRN.MODESTO Service: ? Author Type: Horseradish Grinder Type: Progress Notes Filed: 07/28/2023 1:28 PM Note Text: INITIAL OB ASSESSMENT OB Provider: Isa Pedraza APRN CNM HPI: Christa is a 22 year old White here to establish Obstetrical Care. Patient's last menstrual period was 01/21/2023 (exact date). from OB Dating Form. Cycles regular was unplanned but accepted Complaints: None OB History T4 L4 SAB0 IAB0 Ectopic0 Multiple0 Live Births4 # 1 - Date: 08/03/15, Sex: Female, Weight: 8 lb 7 oz (3.827 kg), GA: 41w6d, Delivery: Vaginal, Spontaneous, Apgar1: None, Apgar5: None, Living: Living, Comments: Greater than 32 hours of labor # 2 - Date: 07/10/18, Sex: Male, Weight: 6 lb 2 oz (2.778 kg), GA: 40w0d, Delivery: Vaginal, Spontaneous, Apgar1: None, Apgar5: None, Living: Living, Comments: None # 3 - Date: 08/30/19, Sex: Male, Weight: 6 lb 7 oz (2.92 kg), GA: 40w0d, Delivery: Vaginal, Spontaneous, Apgar1: None, Apgar5: None, Living: (Post ), Comments: Induction due to amniotic sac was filling with blood and decreased FM-CAN, at 7w 2 days-ruled as asphyxiation from position in bed # 4 - Date: 02/23/22, Sex: Male, Weight: 6 lb 7 oz (2.92 kg), GA: 40w1d, Delivery: Vaginal, Vacuum (Extractor), Apgar1: None, Apgar5: None, Living: Living, Comments: AROM,CAN x1 tight,Kiwi used due to deep decelerations with pushing, no episiotomy or lacerations, 250cc # 5 - Date: None, Sex: None, Weight: None, GA: None, Delivery: None, Apgar1: None, Apgar5: None, Living: None, Comments: None Previous history: Prior : never History of 4th degree laceration: No History of shoulder dystocia: No History of Hypertensive disorders including pre-eclampsia, chronic hypertension or gestational hypertension: No History of gestational diabetes: Yes Patient's Risk Screening for delivery: Have you had a prior bro between 20w and 36w6d?: No MEDICAL/PSYCHOSOCIAL HISTORY: History of hemorrhage or bleeding concerns: No Thyroid Disease: No History of chronic hypertension: No History of pre-existing diabetes: No BMI 20.94 kg/(m2) History of abnormal pap: No Prior treatment for cervical dysplasia: none. History of STDs: None Tobacco use: Yes, 3-4 CPD, down from a pack per day. Caffeine use: Yes drinks a frappe every morning Drug use: Yes marijuana use once every 2 weeks but decreasing. Alcohol use: No Multivitamin with Folic acid: No-makes her nauseated and vomiting Faith or heritage: No Would refuse blood transfusion if medically necessary: No Are you currently employed? 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 I don't have enough money to pay my bills: Never Within the past 12 months, have you worried that your food would run out before you had money to buy more: Never In the past 12 months, has lack of reliable transportation kept you from going to medical appointments or work, or from keeping things needed for daily living: Never In the past 12 months, have you had any concerns about having a place to live, or about the condition or quality of your housing: Never Are there any cultural or spiritual needs we should be aware of: No Depression/Anxiety Screening: admits to symptoms of anxiety. OB Depression and Anxiety Screening- This Encounter (since 07/09/2023) Over the past 2 weeks have you felt down, depressed, or hopeless? Negative Over the past two weeks, have you felt little interest or pleasure in doing things?? Negative Feeling nervous, anxious or on edge 3-Nearly every day Not being able to stop or control worrying 0-Not al all Anxiety Pre-Screening Total (If >/= 3 additional questions will be reviewed) 3 Worrying too much about different things 1-Several days Trouble relaxing 1-Several days Being so restless that it is hard to sit still 1-Several days Becoming easily annoyed or irritable 0-Not al all Feeling afraid, as if something awful might happen 0-Not al all Anxiety (SEA) Full Screening Total 6 Genetic Screening: Partner present: Yes Patient verbalized knowledge of partner family health history: Yes Do you or your partner have any personal or family history of defects not previously discussed: No Do you have history of a complicated by anomaly, genetic condition, or demise: No ACOG Recommended Screening Screening for early gestational diabetes testing: Criteria for early testing requires elevated BMI plus one other risk factor: BMI 20.94 kg/(m2) (risk fac (more content not included)... [facility] 07-28-2023 History of Presen t illness Narrative Images from the original note were not included. INITIAL OB ASSESSMENT OB Provider: Ias Pedraza APRN CNM HPI: Christa is a 22 year old White here to establish Obstetrical Care. Patient's last menstrual period was 01/21/2023 (exact date). from OB Dating Form. Cycles regular was unplanned but accepted Complaints: None OB History T4 L4 SAB0 IAB0 Ectopic0 Multiple0 Live Births4 # 1 - Date: 08/03/15, Sex: Female, Weight: 8 lb 7 oz (3.827 kg), GA: 41w6d, Delivery: Vaginal, Spontaneous, Apgar1: None, Apgar5: None, Living: Living, Comments: Greater than 32 hours of labor # 2 - Date: 07/10/18, Sex: Male, Weight: 6 lb 2 oz (2.778 kg), GA: 40w0d, Delivery: Vaginal, Spontaneous, Apgar1: None, Apgar5: None, Living: Living, Comments: None # 3 - Date: 08/30/19, Sex: Male, Weight: 6 lb 7 oz (2.92 kg), GA: 40w0d, Delivery: Vaginal, Spontaneous, Apgar1: None, Apgar5: None, Living: (Post ), Comments: Induction due to amniotic sac was filling with blood and decreased FM-CAN, at 7w 2 days-ruled as asphyxiation from position in bed # 4 - Date: 02/23/22, Sex: Male, Weight: 6 lb 7 oz (2.92 kg), GA: 40w1d, Delivery: Vaginal, Vacuum (Extractor), Apgar1: None, Apgar5: None, Living: Living, Comments: AROM,CAN x1 tight,Kiwi used due to deep decelerations with pushing, no episiotomy or lacerations, 250cc # 5 - Date: None, Sex: None, Weight: None, GA: None, Delivery: None, Apgar1: None, Apgar5: None, Living: None, Comments: None Previous history: Prior : never History of 4th degree laceration: No History of shoulder dystocia: No History of Hypertensive disorders including pre-eclampsia, chronic hypertension or gestational hypertension: No History of gestational diabetes: Yes Patient's Risk Screening for delivery: Have you had a prior bro between 20w and 36w6d?: No MEDICAL/PSYCHOSOCIAL HISTORY: History of hemorrhage or bleeding concerns: No Thyroid Disease: No History of chronic hypertension: No History of pre-existing diabetes: No BMI 20.94 kg/(m^2) History of abnormal pap: No Prior treatment for cervical dysplasia: none. History of STDs: None Tobacco use: Yes, 3-4 CPD, down from a pack per day. Caffeine use: Yes drinks a frappe every morning Drug use: Yes marijuana use once every 2 weeks but decreasing. Alcohol use: No Multivitamin with Folic acid: No-makes her nauseated and vomiting Faith or heritage: No Would refuse blood transfusion if medically necessary: No Are you currently employed? 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 I don't have enough money to pay my bills: Never Within the past 12 months, have you worried that your food would run out before you had money to buy more: Never In the past 12 months, has lack of reliable transportation kept you from going to medical appointments or work, or from keeping things needed for daily living: Never In the past 12 months, have you had any concerns about having a place to live, or about the condition or quality of your housing: Never Are there any cultural or spiritual needs we should be aware of: No Depression/Anxiety Screening: admits to symptoms of anxiety. OB Depression and Anxiety Screening- This Encounter (since 07/09/2023) Over the past 2 weeks have you felt down, depressed, or hopeless? Negative Over the past two weeks, have you felt little interest or pleasure in doing things? Negative Feeling nervous, anxious or on edge 3-Nearly every day Not being able to stop or control worrying 0-Not al all Anxiety Pre-Screening Total (If >/= 3 additional questions will be reviewed) 3 Worrying too much about different things 1-Several days Trouble relaxing 1-Several days Being so restless that it is hard to sit still 1-Several days Becoming easily annoyed or irritable 0-Not al all Feeling afraid, as if something awful might happen 0-Not al all Anxiety (SEA) Full Screening Total 6 Genetic Screening: Partner present: Yes Patient verbalized knowledge of partner family health history: Yes Do you or your partner have any personal or family history of defects not previously discussed: No Do you have history of a complicated by anomaly, genetic condition, or demise: No ACOG Recommended Screening Screening for early gestational diabetes testing: Criteria for early testing requires elevated BMI plus one other risk factor: BMI 20.94 kg/(m^2) (risk factor if > than 25 or 23 in Americans) Additional risk factors: None She does not meet ACOG criteria for early gestational DM screening. 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 ondansetron (ZOFRAN) 4 mg tablet take 1 tablet by mouth every 4 to 6 hours if needed for nausea promethazine (PHENERGAN) 12.5 mg tablet take 1 tablet by mouth every 4 to 6 hours if needed for nausea (Patient not taking: Reported on 07/10/2023) No current facility-administered medications for this visit. Allergies As of Date: 07/28/2023 Allergen Noted Reaction AUGMENTIN [AMOXICILLIN-POT CLAVUL*06/04/2021 Other: See Comments Fully Assessed 07/28/2023 Does patient have penicillin allergy: No REVIEW OF SYSTEMS: GENERAL: Negative for: Fever or Chills HEENT: Negative for: Headache, Impaired Vision, Ringing in Ears, Nosebleeds NECK: Negative for: Swelling, Pain, Stiffness RESPIRATORY: Negative for: Cough, Shortness of breath, Wheezing GASTROINTESTINAL: Negative for: Heartburn, Constipation, Diarrhea, Blood in stool, Vomiting MUSCULOSKELETAL: Negative for: Muscle or joint pain, stiffness, Joint swelling NEUROLOGIC/PSYCHIATRIC: Negative for: Weakness, Paralysis, Numbness, Tingling, Tremor, Anxiety, Depression, Memory loss SKIN: Negative for: Rash, Itching GENITOURINARY: Negative for: vaginal itching, vaginal discharge, hematuria or dysuria PHYSICAL EXAM: BP 102/60 Ht 5' 4 (1.63m) Wt 122 lb (55.3kg) LMP 01/21/2023 BMI 20.93 kg/(m^2). GENERAL: pleasant in no apparent distress DERMATOLOGY: Normal, without lesions, non-icteric, and non-hirsute NECK: Supple, full range of motion, no adenopathy, and thyroid normal CHEST: Normal inspiratory effort ABDOMEN: soft, non-tender, and no masses NEURO: alert and oriented x3,exam grossly non-focal SBIRT Christa Brown was given the 4's screening tool. Christa answered as follows: OB Opioid Screening - Last Recorded (since 10/31/2022) Did any of your parents have a problem with alcohol or other drug use? Yes mom-drusg, father-ETOH and drugs Does your partner have a problem with alcohol or other drug use? No In the past, have you had difficulties in your life because of alcohol or other drugs, including prescription medications? No In the past month have you drunk any alcohol or used other drugs? No Are you taking medication for pain during the either prescribed or not? No Based on the screen and further questions, she is considered at moderate risk due to: Continued low level of use. Patient offered brief intervention, motivational interviewing, and plan rescreen early third trimester. In discussing this issue my medical advice was that Christa Brown abstain. Her readiness to change(0 lowest - 10 highest) was 6. We discussed her motivation to change based upon this response. Patient agreed that she would: abstain. Patient will return in 2 to discuss her progress with this plan. In total, 5 minutes of personal time was spent administering and interpreting the screen, plus performing a brief intervention. Isa Pedraza APRN.MODESTO ASSESSMENT: 22 year old at 28w0d wks gestational age PLAN: 1) Patient oriented to practice. Discussed nutrition, folic acid supplementation, dietary guidelines, exercise, smoking, alcohol, caffeine, and drug use. Discussed gestational weight gain guidelines. Discussed routine OB labs including STD/HIV. Discussed how to access Your guide to a health and the [employer]. 2) History of diabetes: GDM A1 3) Recommended smoking cessation, no planning to quit at this time, declines cessation program. 4) Discussed marijuana use and recommended cessation 5) Unable to complete GDM screening today but will return in a few days to get this done. 6) Previous marginal cord insertion, normal at this time 7) History of depression, declines referral and doing well. 8) History of pseudoseizures Follow up in 2 weeks or sooner prn. Isa Pedraza APRN.CNM documented in this encounter [facility] 07-28-2023 Instructions Andrew Rizzo Cma - 07/28/2023 8:34 AM EDT Please select the following link to access the [facility] Your Guide to a Healthy . [email or web address] documented in this encounter [facility] 07-11-2023 Note HNO ID: [id number] Author: Kathy Jo APRN.CNP Service: ? Author Type: Nurse Practitioner Type: Progress Notes Filed: 07/11/2023 8:07 PM Note Text: This is a 22 year old female who presents today with: Patient presents with: Acute Visit: Bilateral ear pain/pressure; will need referral to ENT HISTORY OF PRESENT ILLNESS: Christa Brown is a 22 year old female. Patient presents with: Acute Visit: Bilateral ear pain/pressure; will need referral to ENT Pt presents today with complaint of chronic ear problems. Went to the ER a few times with inner ear infections and strep throat. Advised that she should have a referral to ENT for possible tubes in the ears. Refers that her ears usually heart a lot of the time. She has tried nasal sprays and stuff to clean you out but nothing seems to helps. Refers it affects the bilateral ears and can feel the lymph nodes in the neck. Refers that the right ear is generally worse than the left. No recent sickness. Refers some sharp and achy pain currently. No popping/cracking in the ears -- just a lot of pressure. Usually worse when she gets out of the shower. Father went deaf in one ear from infection. Currently 25 weeks . Good movement. No leakage of fluid or bleeding. 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 ondansetron (ZOFRAN) 4 mg tablet take 1 tablet by mouth every 4 to 6 hours if needed for nausea promethazine (PHENERGAN) 12.5 mg tablet take 1 tablet by mouth every 4 to 6 hours if needed for nausea (Patient not taking: Reported on 07/10/2023) No current facility-administered medications for this visit. FAMILY HISTORY Problem Relation Age of Onset other (gun shot wound) Mother Ovarian cancer Mother No Known Problems Father No Known Problems Maternal Grandmother No Known Problems Maternal Grandfather Cervical Cancer Paternal Grandmother Schizophrenia Paternal Grandfather Diabetes Paternal Grandfather Cervical Cancer Other Migraines Half-brother Social History Tobacco Use Smoking status: Every Day Years: 10 Types: Cigarettes Smokeless tobacco: Never Vaping Use Vaping Use: Never used Substance Use Topics Alcohol use: Not Currently Comment: rarely Drug use: Yes Types: Marijuana Comment: x1 weekly EXAM: BP 110/70 Pulse 108 Resp 16 LMP 01/21/2023 (Exact Date) SpO2 97% PHYSICAL EXAM: General Appearance: Well appearing, alert, in no acute distress, well-hydrated, well nourished.. Skin: Skin color, texture, turgor normal, no suspicious rashes or lesions. Head: Normocephalic, no masses, lesions, tenderness or abnormalities. Eyes: Anicteric sclera. Pupils are equally round and reactive to light. Extraocular movements are intact. . Ears: External ears normal, canals clear, Positive findings: R TM: air/fluid interface visualized and bulging, L TM: air/fluid interface visualized and bulging. Oropharynx: Lips, mucosa, and tongue normal, teeth and gums normal, oropharynx normal. Neck: Supple, no adenopathy; thyroid symmetric, normal size, no bruits. Lungs: Lungs clear to auscultation. No wheezing, rhonchi, rales.. Heart: RRR without murmur, gallop, or rubs. No ectopy. Neurologic: Gait normal. ASSESSMENT/PLAN: 1. Ear pain, bilateral - ICD9: 388.70, ICD10: H92.03 Frequent episodes of ear pain and infections. Referral to ENT for further eval/treat. - CONSULT TO ENT Discussed treatment plan and patient voices understanding. Patient's questions answered appropriately. Medications and potential side effects were discussed and patient voices understanding. Return to the office as scheduled or as needed for worsening/no improvement. Kathy Jo APRN.CNP [facility] [place] 07-11-2023 Instructions Kathy Jo APRN.CNP - 07/11/2023 3:44 PM EDT Schedule w/ ENT. documented in this encounter [facility] 07-11-2023 History of Presen t illness Narrative This is a 22 year old female who presents today with: Patient presents with: Acute Visit: Bilateral ear pain/pressure; will need referral to ENT HISTORY OF PRESENT ILLNESS: Christa Brown is a 22 year old female. Patient presents with: Acute Visit: Bilateral ear pain/pressure; will need referral to ENT Pt presents today with complaint of chronic ear problems. Went to the ER a few times with inner ear infections and strep throat. Advised that she should have a referral to ENT for possible tubes in the ears. Refers that her ears usually heart a lot of the time. She has tried nasal sprays and stuff to clean you out but nothing seems to helps. Refers it affects the bilateral ears and can feel the lymph nodes in the neck. Refers that the right ear is generally worse than the left. No recent sickness. Refers some sharp and achy pain currently. No popping/cracking in the ears -- just a lot of pressure. Usually worse when she gets out of the shower. Father went deaf in one ear from infection. Currently 25 weeks . Good movement. No leakage of fluid or bleeding. 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 ondansetron (ZOFRAN) 4 mg tablet take 1 tablet by mouth every 4 to 6 hours if needed for nausea promethazine (PHENERGAN) 12.5 mg tablet take 1 tablet by mouth every 4 to 6 hours if needed for nausea (Patient not taking: Reported on 07/10/2023) No current facility-administered medications for this visit. FAMILY HISTORY Problem Relation Age of Onset other (gun shot wound) Mother Ovarian cancer Mother No Known Problems Father No Known Problems Maternal Grandmother No Known Problems Maternal Grandfather Cervical Cancer Paternal Grandmother Schizophrenia Paternal Grandfather Diabetes Paternal Grandfather Cervical Cancer Other Migraines Half-brother Social History Tobacco Use Smoking status: Every Day Years: 10 Types: Cigarettes Smokeless tobacco: Never Vaping Use Vaping Use: Never used Substance Use Topics Alcohol use: Not Currently Comment: rarely Drug use: Yes Types: Marijuana Comment: x1 weekly EXAM: BP 110/70 Pulse 108 Resp 16 LMP 01/21/2023 (Exact Date) SpO2 97% PHYSICAL EXAM: General Appearance: Well appearing, alert, in no acute distress, well-hydrated, well nourished.. Skin: Skin color, texture, turgor normal, no suspicious rashes or lesions. Head: Normocephalic, no masses, lesions, tenderness or abnormalities. Eyes: Anicteric sclera. Pupils are equally round and reactive to light. Extraocular movements are intact. . Ears: External ears normal, canals clear, Positive findings: R TM: air/fluid interface visualized and bulging, L TM: air/fluid interface visualized and bulging. Oropharynx: Lips, mucosa, and tongue normal, teeth and gums normal, oropharynx normal. Neck: Supple, no adenopathy; thyroid symmetric, normal size, no bruits. Lungs: Lungs clear to auscultation. No wheezing, rhonchi, rales.. Heart: RRR without murmur, gallop, or rubs. No ectopy. Neurologic: Gait normal. ASSESSMENT/PLAN: 1. Ear pain, bilateral - ICD9: 388.70, ICD10: H92.03 Frequent episodes of ear pain and infections. Referral to ENT for further eval/treat. - CONSULT TO ENT Discussed treatment plan and patient voices understanding. Patient's questions answered appropriately. Medications and potential side effects were discussed and patient voices understanding. Return to the office as scheduled or as needed for worsening/no improvement. Kathy Jo APRN.DAWN documented in this encounter [facility] documented as of this encounter (statuses as of 07/28/2023) [facility]10-02-2023 History of Past illness Narrative* Problem Noted Date Diagnosed Date Resolved Date Marginal placenta 07/10/2023 07/28/2023 Overview: 07/28/23-Normal insertion of cord on follow up US 07/26/23. Isa Pedraza APRN.YO 07/10/2023She was last seen on June 28. She had an anatomy ultrasound on June 08 that revealed marginal cord insertion, 1.2 cm away from cervix. Patient states she was told to have a repeat anatomy ultrasound. See phone note dated JulyKRN documented as of this encounter (statuses as of 08/02/2023) [facility]10-02-2023 History of Past illness Narrative* Problem Noted Date Diagnosed Date Resolved Date Marginal placenta 07/10/2023 07/28/2023 Overview: 07/28/23-Normal insertion of cord on follow up US 07/26/23. Isa Pedraza APRN.CNM 07/10/2023She was last seen on June 28. She had an anatomy ultrasound on June 08 that revealed marginal cord insertion, 1.2 cm away from cervix. Patient states she was told to have a repeat anatomy ultrasound. See phone note dated JulyN documented as of this encounter (statuses as of 08/24/2023) [facility]2023 History of Past illness Narrative* Problem Noted Date Diagnosed Date Resolved Date Marginal placenta 07/10/2023 07/28/2023 Overview: 07/28/23-Normal insertion of cord on follow up US 07/26/23. Isa Pedraza APRN.CNM 07/10/2023She was last seen on June 28. She had an anatomy ultrasound on June 08 that revealed marginal cord insertion, 1.2 cm away from cervix. Patient states she was told to have a repeat anatomy ultrasound. See phone note dated JulyN documented as of this encounter (statuses as of 08/25/2023) [facility]-02[facility]2023 History of Past illness Narrative* Problem Noted Date Diagnosed Date Resolved Date Marginal placenta 07/10/2023 07/28/2023 Overview: 07/28/23-Normal insertion of cord on follow up US 07/26/23. Isa Pedraza APRN.YO 07/10/2023Shivelisse was last seen on June 28. She had an anatomy ultrasound on June 08 that revealed marginal cord insertion, 1.2 cm away from cervix. Patient states she was told to have a repeat anatomy ultrasound. See phone note dated JulyN documented as of this encounter (statuses as of 09/01/2023) [facility]2023 History of Past illness Narrative* Problem Noted Date Diagnosed Date Resolved Date Marginal placenta 07/10/2023 07/28/2023 Overview: 07/28/23-Normal insertion of cord on follow up US 07/26/23. Isa Pedraza APRN.YO 07/10/2023Shivelisse was last seen on June 28. She had an anatomy ultrasound on June 08 that revealed marginal cord insertion, 1.2 cm away from cervix. Patient states she was told to have a repeat anatomy ultrasound. See phone note dated JulyN documented as of this encounter (statuses as of 09/08/2023) [facility]10-02-2023 NoteHNO ID: [id number] Author: Jessica Mares RN Service: ? Author Type: ? Type: Progress Notes Filed: 07/10/2023 11:37 AM Note Text: INITIAL OB ASSESSMENT OB Provider: Jessica Mares RN HPI: Christa is a 22 year old White here to establish Obstetrical Care. Patient's last menstrual period was 01/21/2023 (exact date). from OB Dating Form. Cycles regular was unplanned but accepted Complaints: None OB History T4 L4 SAB0 IAB0 Ectopic0 Multiple0 Live Births4 # 1 - Date: 08/03/15, Sex: Female, Weight: 8 lb 7 oz (3.827 kg), GA: 41w6d, Delivery: Vaginal, Spontaneous, Apgar1: None, Apgar5: None, Living: Living, Comments: Greater than 32 hours of labor # 2 - Date: 07/10/18, Sex: Male, Weight: 6 lb 2 oz (2.778 kg), GA: 40w0d, Delivery: Vaginal, Spontaneous, Apgar1: None, Apgar5: None, Living: Living, Comments: None # 3 - Date: 08/30/19, Sex: Male, Weight: 6 lb 7 oz (2.92 kg), GA: 40w0d, Delivery: Vaginal, Spontaneous, Apgar1: None, Apgar5: None, Living: (Post ), Comments: Induction due to amniotic sac was filling with blood and decreased FM-CAN, at 7w 2 days-ruled as asphyxiation from position in bed # 4 - Date: 02/23/22, Sex: Male, Weight: 6 lb 7 oz (2.92 kg), GA: 40w1d, Delivery: Vaginal, Vacuum (Extractor), Apgar1: None, Apgar5: None, Living: Living, Comments: AROM,CAN x1 tight,Kiwi used due to deep decelerations with pushing, no episiotomy or lacerations, 250cc # 5 - Date: None, Sex: None, Weight: None, GA: None, Delivery: None, Apgar1: None, Apgar5: None, Living: None, Comments: None Previous history: Prior : never History of 4th degree laceration: No History of shoulder dystocia: No History of Hypertensive disorders including pre-eclampsia, chronic hypertension or gestational hypertension: No History of gestational diabetes: Yes Patient's Risk Screening for delivery: Have you had a prior bro between 20w and 36w6d?: No MEDICAL/PSYCHOSOCIAL HISTORY: History of hemorrhage or bleeding concerns: No Thyroid Disease: No History of chronic hypertension: No History of pre-existing diabetes: No No results found for: ABORHD No weight on file for this encounter. History of abnormal pap: No Prior treatment for cervical dysplasia: none. History of STDs: None Tobacco use: No Caffeine use: Yes drinks a frappe every morning Drug use: Yes marijuana use once every 2 weeks Alcohol use: No Multivitamin with Folic acid: No-makes her nauseated and vomiting Faith or heritage: No Would refuse blood transfusion if medically necessary: No Are you currently employed? 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 I don't have enough money to pay my bills: Never Within the past 12 months, have you worried that your food would run out before you had money to buy more: Never In the past 12 months, has lack of reliable transportation kept you from going to medical appointments or work, or from keeping things needed for daily living: Never In the past 12 months, have you had any concerns about having a place to live, or about the condition or quality of your housing: Never Are there any cultural or spiritual needs we should be aware of: No Depression/Anxiety Screening: admits to symptoms of anxiety. OB Depression and Anxiety Screening- This Encounter (since 07/09/2023) Over the past 2 weeks have you felt down, depressed, or hopeless? Negative Over the past two weeks, have you felt little interest or pleasure in doing things?? Negative Feeling nervous, anxious or on edge 3-Nearly every day Not being able to stop or control worrying 0-Not al all Anxiety Pre-Screening Total (If >/= 3 additional questions will be reviewed) 3 Worrying too much about different things 1-Several days Trouble relaxing 1-Several days Being so restless that it is hard to sit still 1-Several days Becoming easily annoyed or irritable 0-Not al all Feeling afraid, as if something awful might happen 0-Not al all Anxiety (SEA) Full Screening Total 6 Genetic Screening: Partner present: Yes Patient verbalized knowledge of partner family health history: Yes Do you or your partner have any personal or family history of defects not previously discussed: No Do you have history of a complicated by anomaly, genetic condition, or demise: No ACOG Recommended Screening Screening for early gestational diabetes testing: Criteria for early testing requires elevated BMI plus one other risk factor: No weight on file for this encounter. (risk factor (more content not included)...[facility] [place]10-02-2023 Miscellaneous Notes* Telephone Encounter - Dominique Alexander LPN - 07/10/2023 12:05 PM EDT Pt notified and assisted to schedule repeat anatomy scan. Dominique Alexander LPN * Telephone Encounter - Ronna Damon MD - 07/10/2023 11:10 AM EDT Agree with US prior to NOB and filed thanks * Telephone Encounter - Jessica Mares RN - 07/10/2023 10:55 AM EDT Patient is transferring care from [place]. She is 25 weeks 3 days. History of late care. She had an anatomy ultrasound on June 08 at [place]. A marginal cord insertion was seen. 1.2 cm away from cervix. Patient was told she needed a follow-up ultrasound at her next appointment June 28. Do you want want to order an ultrasound prior to her new OB appointment July 28? These advise [facility] NoteHNO ID: [id number] Author: Tatum Hernandez RN Service: ? Author Type: ? Type: Progress Notes Filed: 06/28/2023 3:56 PM Note Text: Received records from [place] [employer]ACHINE [employer]. A copy placed in [facility] mailbox and one sent for scanning. Tatum Hernandez RN[facility] [place] History of Present illness Narrative* Tatum Hernandez RN - 06/28/2023 3:56 PM EDT Received records from [place] [employer] C[employer]TING MACHINE O[employer]. A copy placed in [facility] mailbox and one sent for scanning. Tatum Hernandez RN [facility] Miscellaneous Notes* Telephone Encounter - Cecilia Robles Ma - 10/25/2022 10:48 AM EST Letter sent to patient Results sent with it * Telephone Encounter - Cecilia Robles Ma - 10/25/2022 10:23 AM EST Left message for patient to return call. Cecilia Robles Ma * Telephone Encounter - Mya Salas LPN - 10/19/2022 2:31 PM EST Left message to call office and speak with nurse. * Telephone Encounter - Mya Salas LPN - 10/19/2022 2:30 PM EST ----- Message from Edith Oleary PA-C sent at 10/19/2022 11:58 AM EST ----- Please advise drug screen is positive for marijuana acknowledges and benzo from Xanax. She is also showing positive for amphetamines. Please ask if she has been using any other substances or medications we have not prescribed. No judgment, just necessary to know for treatment. Thanks, Louis Oleary PA-C [facility] Instructions* Patient Instructions* Edith Oleary PA-C - 10/17/2022 10:32 AM EST SLEEP HYGIENE Steps to Improve Your sleep Maintain a regular sleep-wake cycle 7 days a week. Bedtime should not vary more than 1 hour from day to day. Go to bed ONLY when you are sleepy. Aim for at least 8 hours of sleep which has been identified as the optimal amount for all adults. Maintain a regular schedule for meals, medications, chores and sleep as much as possible. Limit or wean completely off any stimulants, such as caffeine, nicotine, energy drinks, and OTC decongestant medications which can effect sleep efficiency. Caffeine exerts its effect for 12-16 hours,so avoid use within that time period before sleep. Do not use nicotine products withing 4-6 hours of sleeping. Avoid taking naps. If you do nap, try to limit is to less than 1 hour. Don't lay in bed longer than 20-30 minutes without sleeping. Get up and do something sedentary unitl you feel tired like folding clothes, reading, listening to relaxing music or meditation. Minimize excessive light, noise, or extremes of temperature in the sleep environment. Minimize distractions as much as possible such as pets, children, un-silenced phones, light or TV noise in the bedroom. Move the alarm clock away from your bed so that you are not tempted to look at it. Don't eat a large meal within a few hours of bedtime. Don't use alcohol to induce sleep or in late evening hours as it can cause awakenings later in the night Don't exercise vigorously within fours of sleep. Regular exercise earlier in the day will help withoverall sleep improvement. Limit television to an hour a day. Television viewing actually decreases the REM (most restful) portion of your sleep cycle. Avoid screen time in the two hours before sleep. This includes television, tablets, computer screens and cell-phones. The blue light from the devices mimics sunlight and activates wakefulness. Avoid using your bed as a recreational area for reading or television. The bed should be reserved for two things, and one of those is sleep. Almost all sleep-aids are sedatives. While sedatives make cause you to sleep, they actually interfere with stage 4 deep sleep which is the reparative stage for brain stress. Chronic use of sedatives for an unknown reason increases all cause mortality and shorter life span. OTC herbal supplements such as Valerian Root and Kava Kava have shown some benefit in sleep induction without hang over. Melatonin has been sown to help some people and is also not a sedative. The recommended dose for melatonin in adult is 1/2mg one hour prior to bedtime. Melatonin regulates sleep cycle and larger doses may cause activation rather than sleep. Mindfulness practice has been shown to improve deep sleep. There are many internet source and apps to help guidance in this habit. See below for guidance in this practice. Relaxation - Deep Breathing Take a Time-Out This technique relieves tension by inhaling deeply and exhaling slowly. You can use this anywhere, anytime! Try practicing this technique 3-4 times each day and then, whenever you begin to feel tense. Now, get in a comfortable position 1. Close your eyes, inhale slowly and deeply through your nose as you count silently: In, 2, 3, 4. Notice how your stomach expands first, then your rib cage, and finally your upper chest. 2. Now exhale slowly through your mouth as you count silently: Out, 2, 3, 4, 5, 6. Pretend you're breathing out through a straw to lengthen the time it takes you to exhale. 3. Let your shoulders drop slightly as your upper chest, ribcage, and stomach gently deflate. 4. Repeat this exercise four or five times. A few tips: o Practice makes perfect. It will take time for you to practice this while you are not significantly stressed, before you feel like it is working well when you are stressed. o Use these breathing exercises for as long as you need to during stressful periods. You may vary the rhythm, but always exhale for 2 to 4 seconds longer than you inhale. o If you feel light-headed or fingers tingle, you may be breathing too deeply or too fast. Reduce the depth and speed of your breathing, or breathe into a paper bag until the feeling goes away. Guided Imagery - Picture Yourself Relaxed! Another method of relaxation is mental imagery or clearing your mind . How would you like to take a mental vacation? Well, you can if you let your imagination be your guide. 1. Begin by focusing on your breathing. Spend a few minutes breathing slowly and smoothly. 2. As you breathe, slowly count backward from 5, sinking deeper and deeper into a state of relaxation. Say to yourself, I feel deeply relaxed. 3. Next, imagine a pleasant place that you can return to whenever you need relaxation - for example, a warm, quiet beach or a tranquil, fragrant garden. Close your eyes to help you concentrate. 4. Experience the place with all your senses - sight, touch, smell, hearing and taste. Remain there for about 5 minutes or longer, depending on the time you need for pain relief. o Let your imagination run free. Try to name the colors you see. Or trace the shapes of the flowersblooming in the garden. Breathe in the sweet fragrance of the blossoms, listen to the birds chirping, and feel the sun warm your skin. Now, sip a cool beverage before you step through the garden and greet a friend. 5. Slowly let the image you've chosen fade from the center of your attention as you focus again on your breathing. Maintain a relaxed feeling. When you feel ready, count slowly to 5 and open your eyes. Progressive Muscle Relaxation - Identifying and Releasing Tension No matter where you are,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 multivitamin (Multivitamin) 2 tab(s) by mouth Every day Unchanged ondansetron (Zofran ODT use ondansetron oral tablet, disintegrating ) 4 Milligram by mouth Every 8 hours as needed for as needed for nausea/vomiting Vomiting of Duration: 5 Days Unchanged predniSONE (predniSONE 50 mg oral tablet) 1 tab(s) by mouth Every day Costochondritis Duration: 5 Days Unchanged sertraline (Zoloft) by mouth Once a day Please take this list to your next doctor s visit. Bring all medications you take, including over the counter medications, herbals and other supplements with you to your doctor s visit. Patients and families are reminded to discard old lists and to update any records with all medication providers or retail pharmacies. Education Materials External Ear Infection (Adult) External otitis (also called swimmer s ear ) is an infection in the ear canal. It is often caused by bacteria or fungus. It can occur a few days after water gets trapped in the ear canal (from swimming or bathing). It can also occur after cleaning too deeply in the ear canal with a cotton swab or other object. Sometimes, hair care products get into the ear canal and cause this problem. Symptoms can include pain, fever, itching, redness, drainage, or swelling of the ear canal. Temporary hearing loss may also occur. Home care Do not try to clean the ear canal. This can push pus and bacteria deeper into the canal. Use prescribed ear drops as directed. These help reduce swelling and fight the infection. If an earwick was placed in the ear canal, apply drops right onto the end of the wick. The wick will draw the medicine into the ear canal even if it is swollen closed. A cotton ball may be loosely placed in the outer ear to absorb any drainage. You may use acetaminophen or ibuprofen to control pain, unless another medicine was prescribed. Note: If you have chronic liver or kidney disease or ever had a stomach ulcer or GI bleeding, talk to your healthcare provider before taking any of these medicines. Do not allow water to get into your ear when bathing. Also, don't swim until the infection has cleared. Prevention Keep your ears dry. This helps lower the risk of infection. Dry your ears with a towel or office chair assembler after getting wet. Also, use ear plugs when swimming. Do not stick any objects in the ear to remove wax. If you feel water trapped in your ear, use ear drops right away. You can get these drops over the counter at most drugstores. They work by removing water from the ear canal. Follow-up care Follow up with your healthcare provider in 1 week, or as advised. When to seek medical advice Call your healthcare provider right away if any of these occur: Ear pain becomes worse or doesn t improve after 3 days of treatment Redness or swelling of the outer ear occurs or gets worse Headache Painful or stiff neck Drowsiness or confusion Fever of 100.4 F (38 C) or higher, or as directed by your healthcare provider Seizure [id number] The [employer]. [address] [place] [address], [place] [address]. All rights reserved. This information is not intended as a substitute for professional medical care. Always follow yourhealthcare professional's instructions. Additional Information VACCINATE! IT SAVES LIVES! Members of the community who have not yet received the COVID-19 vaccine and would like to receive it can visit one of [facility] vaccine clinics. There are many vaccine clinic locations within the [facility]. For locations and available times, please visit [email or web address]. It is important to note that some COVID mobile vaccine clinics are held outdoors and may be canceled in rainy orstormy conditions. To learn more about pediatric vaccinations (ages 5-11), we invite you to visit the [facility] webpage. [email or web address] learn more about the COVID-19 vaccine, we invite you to visit the [facility] website for a list of frequently asked questions. [email or web address] [facility] Patient Portal Access Instructions: Stay connected with your healthcare team and access your personal medical information anytime with the [facility] Patient Portal. If you would like a full copy of your medical records please contact the [facility] Medical Records Department Monday through Monday between 8a.m. and 4:30p.m. Please follow the directions below to access the portal: 1.Access the email account you provided upon registration to the [facility].2.Look for an invitation email from [facility].3.Open the email and access the invitation link: Accept Invitation to [facility]4.Fill in the required [place] to create your account. Sign into [email or web address] with your username and password that you created in the above steps to stay up to date. You can then view a summary of results, a summary of your visits, and the ability to download your summaries to your computer or send the information securely to a physician. Remember that your healthcare information is confidential, so carefully consider who you will allow to register on the [facility] Patient Portal for access to your information. You can also access the [facility] Patient Portal on the [employer]. Simply click on Health Records under [place] and then click on the [facility] logo. HOW TO SAFELY DISPOSE OF PRESCRIPTION MEDICATIONS Please use one of the following methods to safely dispose of your unused medications. 1.Use a drug disposal kit: the drug disposal pouch allows you to safely discard your old and unuseddrugs. Ask your nurse to give you one when you are discharged.2.Visit a local take-back location: Many local pharmacies and police departments have programs that collect old and unwanted prescriptiondrugs. Call your local pharmacy or go to http://[email or web address]/1S6Dd9n to find one close to you.3.Make use of household items: Use cat litter or old coffee grounds to dispose medications if other options arenot available. Mix your drugs with these household products, seal them in an airtight container andthrow it into the garbage. Call [facility]: [phone] to be sure your drugs can be disposed of in this way. Some medicines may require a different approach.4.Never flush your medications down the toilet. IF YOU HAVE BEEN PRESCRIBED AN OPIOIDS FOR PAIN If you have been prescribed an opioid (such as hydrocodone, oxycodone or morphine), it is critical to understand the possible side effects and risks of opioid pain medications. Even when taken as directed, opioids can have several side effects including: Tolerance, meaning you might need to take more of a medication for the same pain relief. Nausea, vomiting and/or constipation. Sleepiness, dizziness, dry mouth, confusion, depression or itching. Physical dependence, meaning you have withdrawal symptoms when a medication is stopped ? this can develop within a few days. KNOW YOUR RESPONSIBILITIES It is important to know exactly how much and how often to take the opioid pain medications you are prescribed. Never take opioids in higher amounts or more often than prescribed. Do not combine opioids with alcohol or other drugs that cause drowsiness, such as benzodiazepines, also known as benzos,including diazepam and alprazolam, muscle relaxants or sleep aids. Never sell or share prescriptionopioids. This is illegal. Store opioids in a secure place and out of reach of others (including children, family, friends and visitors). The last page(s) of this document has been signed and retained as a CHART COPY Signatures Patient Education Materials External Ear Infection (Adult) Medication Leaflets My discharge plan and instructions have been reviewed and explained to me and I,CHRISTA BROWN understand my current condition and have read and understand these discharge instructions. I have received a written copy of the plan/instructions. If I have questions, I am aware that I should contact my doctor. 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 The general care of your injury includes the following: Resting, Icing, Compressing and Elevating the injured area. Remember this as RICE. REST: Limit the use of the injured body part. ICE: By applying ice to the affected area, swelling and pain can be reduced. Place some ice cubes in a re-sealable (Ziploc) bag and add some water. Put a thin washcloth between the bag and your skin.Apply the ice bag to the area for at least 20 minutes. Do this at least 4 times per day. Using the ice for longer times and more frequently is OK. NEVER APPLY ICE DIRECTLY TO THE SKIN. COMPRESS: Compression means to apply pressure around the injured area such as with a splint, cast or an eduard bandage. Compression decreases swelling and improves comfort. Compression should be tight enough to relieve swelling but not so tight as to decrease circulation. Increasing pain, numbness, tingling, or change in skin color, are all signs of decreased circulation. ELEVATE: Elevate the injured part. For example, elevate your foot by placing it on a chair while sitting, or propping it up on pillows when lying down. documented in this [facility]11-14-2022 History of Present illness Narrative* Hector Johnson APRN.CNP - 08/22/2022 3:43 PM EST Images from the original note were not included. Subjective HPI Nontoxic-appearing female presents urgent care chief complaint right hand and wrist pain. Duration of symptom 1 day. Associated symptoms right hand and wrist pain. Patient states out of anger yesterday she punched the door. Presents today for evaluation. States feels like she might of broke her hand. 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 This feels similar. No numbness no tingling. Denies any decrease sensation. Denies any other injuries. Chance of is not breast-feeding.Past medical history prescription medication use allergies reviewed. 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 promethazine (PHENERGAN) 12.5 mg tablet take 1 tablet by mouth every 4 to 6 hours if needed for nausea FAMILY HISTORY Problem Relation Age of Onset other (gun shot wound) Mother Cervical Cancer Paternal Grandmother Cervical Cancer Other Social History Tobacco Use Smoking status: Every Day Years: 3.00 Types: Cigarettes Smokeless tobacco: Never Tobacco comments: smokes a little over 1/2 pack per day Substance Use Topics Alcohol use: Never Drug use: Yes Types: Marijuana Comment: x1 weekly BP 110/84 Pulse 99 Temp 36.7 C (98 F) Resp 18 Wt 57.1 kg (125 lb 12.8 oz) LMP 05/27/2021 (Exact Date) SpO2 99% No Review of Systems Constitutional: Negative for chills, fever and malaise/fatigue. HENT: Negative for congestion, ear discharge, ear pain, sinus pain and sore throat. Eyes: Negative for blurred vision, pain, discharge and redness. Respiratory: Negative for cough, hemoptysis, sputum production, shortness of breath, wheezing and stridor. Cardiovascular: Negative for chest pain. Gastrointestinal: Negative for abdominal pain, diarrhea, nausea and vomiting. Musculoskeletal: Positive for joint pain. Negative for back pain, falls, myalgias and neck pain. Skin: Negative for itching and rash. Neurological: Negative for dizziness and headaches. Objective Physical Exam Constitutional: General: She is not in acute distress. Appearance: She is not diaphoretic. HENT: Head: Normocephalic. Mouth/Throat: Mouth: Mucous membranes are moist. Pharynx: Oropharynx is clear. No oropharyngeal exudate or posterior oropharyngeal erythema. Eyes: Conjunctiva/sclera: Conjunctivae normal. Pupils: Pupils are equal, round, and reactive to light. Cardiovascular: Rate and Rhythm: Normal rate and regular rhythm. Heart sounds: Normal heart sounds. Pulmonary: Effort: Pulmonary effort is normal. No tachypnea, accessory muscle usage or respiratory distress. Breath sounds: Normal breath sounds. No stridor. No wheezing, rhonchi or rales. Abdominal: Palpations: Abdomen is soft. Tenderness: There is no abdominal tenderness. Musculoskeletal: Hands: Cervical back: Normal range of motion and neck supple. No rigidity or tenderness. Comments: Abrasions noted over MCP joints right hand. No significant erythema. Neurovascular intact. No deformities noted. Lymphadenopathy: Cervical: No cervical adenopathy. Skin: General: Skin is warm and dry. Neurological: Mental Status: She is alert and oriented to person, place, and time. ASSESSMENT/PLAN: 1. Injury of right hand, initial encounter - ICD9: 959.4, ICD10: S69.91XA (primary diagnosis) - XR HAND GENERAL 3V PA/LAT/OBL RIGHT 2. Wrist injury, right, initial encounter - ICD9: 959.3, ICD10: S69.91XA - XR WRIST INJURY 4V PA/LAT/OBL/SCAPH RIGHT IMPRESSION: No radiographic evidence of acute osseous injury. No acute fractures or dislocations identified. Will treat conservatively at this time as contusion.Red flags reevaluation discussed. Patient was educated on supportive therapies. Patient will followup with primary care provider as needed. Patient was instructed to immediately proceed to emergencyroom for any new, worsening, or symptoms lasting longer than anticipated. The patient's clinical presentation is otherwise unremarkable at this time. Based on exam and clinical finding, the patient is stable for discharge. Plan of care was discussed with patient. Patient verbalizes understanding and agrees to plan of care. This note was generated using [employer] software. It may contain errors in wording, punctuation, or spelling. Hector Johnson APRN.DAWN documented in this encounterMercy Health10-10-2022 Instructions* Patient Instructions* Edith Oleary PA-C - 07/18/2022 6:07 PM EDT Images from the original note were not included. Frequently Asked Questions about Concussion What is a concussion? A concussion, or mild traumatic brain injury, is caused by a bump, jolt, or blow to the head that causes the brain to shift or twist rapidly inside the skull. A jolt to the body can also cause concussion if the impact causes the head to jerk forcefully backwards, forwards, rotate, or move to the side as in whiplash. A concussion is called mild because it is not usually life-threatening, and the symptoms are usually short-lived. However, the effects from a concussion can be serious and can last for days, weeks,or even longer. What are the common causes of concussion? The most common causes of concussions are falls, motor vehicle accidents, bicycling, and sport injuries. Any sport in which there is contact among the players, or which involves moving objects like apuck or a ball, can place the athlete at a higher risk for a concussion. Suffering a concussion increases the risk of suffering another during the first year following the injury. People with a history of previous concussion(s) are also at increased risk for prolonged symptoms after concussion. How is a concussion diagnosed? A medical professional should provide a thorough examination. This includes a history of the injury, a review of concussion symptoms, a comprehensive physical and neurological exam, balance testing and cognitive function testing. Most concussions do not require brain imaging with a CT or MRI. All [facility] have laws to protect youth/student athletes from returning to the sport before it is safe. A note from a licensed medical professional is required to certify the athlete s is recovered prior to athletic return. What are the common symptoms of concussion? Concussion symptoms usually appear immediately or just a few minutes after the head injury however,in some instances, symptoms may take several hours or even days to appear. The most common symptom of a concussion is a headache. Other common symptoms include dizziness, nausea, sensitivity to light and noise, sleep difficulties, fatigue, trouble with concentration, changes in behavior, irritability, sadness, nervousness and anxiety. What does concussion treatment/management involve? Most patients symptoms can be managed by observation and encouraging rest for the first few days. An appointment with a health care provider will individualize a gradual return to work/school and physical activity after initial rest. Medications for pain relief, unless prescribed, are not recommende d as they may hide symptoms are worsening each day. If symptoms are only worsening, seek medical evaluation immediately. Treatment of concussion is based on a plan called relative rest . The purpose is for the brain to be active, but not overactive and it should not become underactive either. There is a need to find balance in activities because the overactive brain can develop more symptoms and the underactive braincan become more sluggish. Both scenarios can make concussion recovery take longer. Four Principles of Relative Rest are as follows: Recognize when your symptoms worsen with activity. Temporarily remove yourself from those activities - take a break. Rest until the symptoms improve or go away - close your eyes and put head down. Return to those activities once you feel better. Can I exercise with a concussion? Yes, light cardiovascular exercise 2 days after concussion injury has been shown to improve a patient s recovery time and symptoms however, it is recommended that a patient refrain from the same level of physical activity as prior to the injury. Gym classes should not be attended until cleared by your medical team. Walking or light riding on a stationary bike for exercise is okay in order to keep the body moving increasing blood flow to the brain but you ll want to avoid anything that significantly increases heart rate. Exercise should not provoke symptoms. If symptoms worsen with light cardiovascular exercise, slow down the tempo of the exercise and see if symptoms improve. If it does, continue at that intensity. If symptoms continue despite slowing down, discontinue activity for the day. Patients who are student athletes should focus on becoming a student first, adding athletic activity as their recovery allows under the guidance of a licensed medical professional whenever possible. The power of diet and hydration: Though you may not be hungry or thirsty, make sure to get a balanced diet and hydration. Low blood sugar and dehydration mimic concussion symptoms. Making sure these are not a factor aids in faster recovery. What should I do if I have trouble falling asleep or sleeping through the night? Avoid screen time at least 1 hour prior to going to bed. This include phones, TVs, computers and other electronic devices. Blue light wavelengths affects the body s natural ability to produce melatonin, a hormone that helps regulate sleep. An over the counter supplement of melatonin is also available and can be used to assist in falling and staying asleep. Begin with 1-3mg if needed. If sleep does not improve, see your medical provideras soon as possible. For additional information or to make an appointment, call [phone]. documented in this encounterMercy Health10-10-2022 History of Present illness Narrative* Edith Oleary PA-C - 07/18/2022 2:40 PM EDT 21 year old female with c/o Super bad anxiety and panic Stress induced seizures On and off sertraline, most recent 1.5-2 months. Stopped because told she was acting weird . says completely on edge, demeanor unhappy', short tempered, distant, trouble sleeping. Current medications: Sertraline 100mg daily: stopped Biggest concern is head Playing with pit bull, smashed head on 's knee: head hurting, bad headache, light sensitive,vomited last night, pseudoseizure. No loss of balance. Has been going to room to be quiet intermittently. Appetite is been about normal but she does complain of nausea, no vomiting outside of the episode last night with headache. does note that she seems to be more porter and vague. Has been taking care of her children, 3 y/o son with autism and 4 month old son. Patient has been isolating herself frequently in a dark quiet place. 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 promethazine (PHENERGAN) 12.5 mg tablet take 1 tablet by mouth every 4 to 6 hours if needed for nausea No current facility-administered medications for this visit. HEPATITIS B(1 of 3 - 3-dose series) Never done COVID-19 VACCINE(1) Never done PNEUMOCOCCAL(1 - PCV) Never done MENINGOCOCCAL B: Consider based on risk(1 of 2 - Risk Bexsero 2-dose series) Never done HPV VACCINE(1 - 2-dose series) Never done GC (GONORRHEA) SCREENING (18-24) Never done HEPATITIS C SCREENING Never done HIV SCREENING Never done CHLAMYDIA SCREENING (18-24) Never done DTAP,TDAP,TD(1 - Tdap) Never done PAP TESTING Never done DEPRESSION ASSESSMENT Never done INFLUENZA(1) Never done EXAM: BP 106/72 (BP Site: Left Arm, BP Position: Sitting, BP Cuff Size: Regular Adult) Pulse 82 Resp 16 Wt 58.2 kg (128 lb 3.2 oz) LMP 05/27/2021 (Exact Date) Pleasant well appearing adult woman with depressed affect, no acute distress. Alert and oriented all spheres. Affect congruent with mood, normal cognition. Speech normal. No deficits to learning or comprehension. Skin warm, dry, pink to lips and nailbeds. Normal turgor. Respirations regular and unlabored. HEENT: NCAT. No evidence of barkley or swelling on the forehead or anywhere else. PERRLA. EOMI. No scleral icterus or conjunctival injection. TM's clear. Nose and oropharynx free from injection or lesion. Oral membranes moist and pink. No cervical lymph nodes. Thyroid non-tender, no masses, or enlargement. Carotids pulses 2+/4+ without bruits. No JVD with HOB at 30 degrees. Neck with tenderness lateral left neck and left TMJ tenderness. Patient is tender bilaterally over the temporalis muscles bitemporal head. Neck is supple with full range of motion flexion, extension, lateral rotation and sidebending. Extrem: no clubbing or cyanosis. Edema: none. Extremities are warm and pink with prompt capillary refill. Neuro: Romberg negative, no past-pointing finger-nose. Patient was able to stand on each individualfoot for 5 seconds including with her eyes closed. Able to heel toe walk without difficulty. No upper body weakness. DTRs are 2 out of 4 plus upper and lower, symmetric. ASSESSMENT/PLAN: 1. Injury of head, initial encounter - ICD9: 959.01, ICD10: S09.90XA (primary diagnosis) I have low suspicion patient has a significant concussion or significant brain trauma but patient'sappearance is vague in her affect, positive for vomiting, positive for increasing headache, positive for change in behavior. Educated on concussion - CT BRAIN WO IVCON 2. Non-intractable cyclical vomiting with nausea - ICD9: 536.2, ICD10: R11.15 - CT BRAIN WO IVCON 3. Frontal headache - ICD9: 784.0, ICD10: R51.9 - CT BRAIN WO IVCON 4. Anxiety with depression - ICD9: 300.4, ICD10: F41.8 Trial mirtazapine for anxiety and sleep 7.5mg and titrate to 15 mg if tolerated in 2 weeks. - MIRTAZAPINE 15 MG TABLET 5. Primary insomnia - ICD9: 307.42, ICD10: F51.01 - MIRTAZAPINE 15 MG TABLET 6. 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 F/u in 4 weeks and as needed in the interim Edith Oleary PA-C [facility] Patient Education 07/08/2022 16:52:06 Insect Bite Insect Bite Insects most often bite to protect themselves or their nests. Certain bugs, like fleas and mosquitoes, bite to feed. In some cases, the actual bite causes no pain. An itchy red welt or swelling may develop at the site of the bite. Most insect bites do not cause illness. And the itching and swellingmost often go away without treatment. However, an infection can develop if the bite is scratched and the skin broken. Rarely, a person may have an allergic reaction to an insect bite. If a stinger is visible at the bite spot, remove it as quickly as possible, as this can decrease the amount of venom that gets into your body. Scrape it out with a dull edge, such as the edge of a credit card. Try not to squeeze it. Do not try to dig it out, as you may damage the skin and also increase the chance of infection. To help reduce swelling and itching, apply a cold pack or ice in a zip-top plastic bag wrapped in athin towel. Home care Your healthcare provider may prescribe nvuf-xfj-uhssgmt medicines to help relieve itching and swelling. Use each medicine according to the directions on the package. If the bite becomes infected, youwill need an antibiotic. This may be in pill form taken by mouth or as an ointment or cream put directly on the skin. Be sure to use them exactly as prescribed. Bite symptoms usually go away on their own within a week or two. To help prevent infection, avoid scratching or picking at the bite. To help relieve itching and swelling, apply ice in a zip-top plastic bag wrapped in a thin towel tothe bites. Do this for up to 10 minutes at a time. Avoid hot showers or baths as these tend to makeitching worse. An gnxi-nkn-bqkgcxf anti-itch medicine such as calamine lotion or an antihistamine cream may be helpful. If you suspect you have insects in your home, talk to a licensed pest-control professional. He or she can inspect your home and tell you how to get rid of bugs safely. Follow-up care Follow up with your healthcare provider, or as advised. Call 911 Call 911 if any of these occur: Trouble breathing or swallowing Wheezing Feeling like your throat is closing up Fainting, loss of consciousness Swelling around the face or mouth When to seek medical advice Call your healthcare provider right away if any of these occur: Fever of 100.4 F (38 C) or higher, or as directed by your healthcare provider Signs of infection, such as increased swelling and pain, warmth, red streaks, or drainage from the skin Signs of allergic reaction, such as hives, a spreading rash, or throat itching [id number] [employer]. [address] [place] [address]. All rights reserved. This information is not intended as a substitute for professional medical care. Always follow yourhealthcare professional's instructions. 07/08/2022 16:51:24 Insect Bite Insect Bite Insects most often bite to protect themselves or their nests. Certain bugs, like fleas and mosquitoes, bite to feed. In some cases, the actual bite causes no pain. An itchy red welt or swelling may develop at the site of the bite. Most insect bites do not cause illness. And the itching and swellingmost often go away without treatment. However, an infection can develop if the bite is scratched and the skin broken. Rarely, a person may have an allergic reaction to an insect bite. If a stinger is visible at the bite spot, remove it as quickly as possible, as this can decrease the amount of venom that gets into your body. Scrape it out with a dull edge, such as the edge of a credit card. Try not to squeeze it. Do not try to dig it out, as you may damage the skin and also increase the chance of infection. To help reduce swelling and itching, apply a cold pack or ice in a zip-top plastic bag wrapped in athin towel. Home care Your healthcare provider may prescribe bcdn-wzp-eiiubal medicines to help relieve itching and swelling. Use each medicine according to the directions on the package. If the bite becomes infected, youwill need an antibiotic. This may be in pill form taken by mouth or as an ointment or cream put directly on the skin. Be sure to use them exactly as prescribed. Bite symptoms usually go away on their own within a week or two. To help prevent infection, avoid scratching or picking at the bite. To help relieve itching and swelling, apply ice in a zip-top plastic bag wrapped in a thin towel tothe bites. Do this for up to 10 minutes at a time. Avoid hot showers or baths as these tend to makeitching worse. An hjfg-jbd-qnbbprt anti-itch medicine such as calamine lotion or an antihistamine cream may be helpful. If you suspect you have insects in your home, talk to a licensed pest-control professional. He or she can inspect your home and tell you how to get rid of bugs safely. Follow-up care Follow up with your healthcare provider, or as advised. Call 911 Call 911 if any of these occur: Trouble breathing or swallowing Wheezing Feeling like your throat is closing up Fainting, loss of consciousness Swelling around the face or mouth When to seek medical advice Call your healthcare provider right away if any of these occur: Fever of 100.4 F (38 C) or higher, or as directed by your healthcare provider Signs of infection, such as increased swelling and pain, warmth, red streaks, or drainage from the skin Signs of allergic reaction, such as hives, a spreading rash, or throat itching [id number] [employer]. [address] [place] [address]. All rights reserved. This information is not intended as a substitute for professional medical care. Always follow yourhealthcare professional's instructions. Follow Up Care 07/08/2022 16:41:10 With:DARON BECK MD Address: [facility] [address] [place] [address] [phone] When:2-4 days [facility] 09-30-2022 Note Discharge Instructions Thank you for allowing [facility] to assist you with your healthcare needs. The following is importantdischarge information regarding your hospital visit. Diagnosis from Today's Visit Insect bites - nonvenomous Rash What to Do Next Instructions from Your Care Team No qualifying data available. Post Acute Orders No qualifying data available. You Need to Schedule the Following Appointments Follow Up with DARON BECK MD When Within 2-4 days Where: [facility] [address] [place] [address] [phone] Allergies Augmentin Medications Please ask your primary doctor or pharmacist before taking any other medication not listed, including over the counter drugs, herbal medications, vitamins and or supplements as they may interact withyour home medications. What How Much When Why Instructions Last Dose Changed predniSONE (predniSONE 50 mg oral tablet) 1 tab(s) by mouth Every day Costochondritis Duration: 5 Days Changed predniSONE (predniSONE 50 mg oral tablet) 1 tab(s) by mouth Once a day with a meal Insect bites - nonvenomous Duration: 5 Days Printed Prescription Unchanged albuterol (Albuterol (Eqv-ProAir HFA) 90 mcg/ inh inhalation aerosol) 2 puff(s) by inhalation Every 4 hours as needed for Wheezing Unchanged cetirizine (Zyrtec 10 mg oral tablet) 1 tab(s) by mouth Once a day Duration: 7 Days Unchanged doxylamine-pyridoxine (Diclegis 10 mg-10 mg oral delayed release tablet) 2 tab(s) by mouth Daily at bedtime Vomiting of Unchanged etodolac (etodolac 400 mg oral tablet) 1 tab(s) by mouth Two (2) times a day Duration: 7 Days Unchanged fluconazole (fluconazole 150 mg oral tablet) Unchanged ibuprofen (ibuprofen 600 mg oral tablet) Unchanged multivitamin (Multivitamin) 2 tab(s) by mouth Every day Unchanged ondansetron (Zofran ODT use ondansetron oral tablet, disintegrating ) 4 Milligram by mouth Every 8 hours as needed for as needed for nausea/vomiting Vomiting of Duration: 5 Days Unchanged sertraline (Zoloft) by mouth Once a day Please take this list to your next doctor s visit. Bring all medications you take, including over the counter medications, herbals and other supplements with you to your doctor s visit. Patients and families are reminded to discard old lists and to update any records with all medication providers or retail pharmacies. Medication Leaflets prednisone (PRED ni sone) Thiago What is the most important information I should know about prednisone? You should not use prednisone if you have a fungal infection anywhere in your body. You should not stop using prednisone suddenly. Follow your doctor's instructions about tapering your dose. What is prednisone? Prednisone is a steroid that reduces inflammation in the body, and also suppresses your immune system. Prednisone is used to treat many different conditions such as hormonal disorders, skin diseases, arthritis, lupus, psoriasis, allergic conditions, ulcerative colitis, Crohn's disease, eye diseases, lung diseases, asthma, tuberculosis, blood cell disorders, kidney disorders, leukemia, lymphoma, multi ple sclerosis, organ transplant rejection, swelling from a brain tumor or injury. Prednisone may also be used for purposes not listed in this medication guide. What should I discuss with my healthcare provider before taking prednisone? You should not use prednisone if you are allergic to it, or if you have a fungal infection anywherein your body. Steroid medication can weaken your immune system, making it easier for you to get an infection or worsening an infection you already have. Tell your doctor about any illness or infection you've had within the past several weeks. Tell your doctor if you have ever had: heart problems, high blood pressure, or a heart attack; glaucoma or cataracts; herpes infection of the eyes; past or present tuberculosis; a parasite infection that causes diarrhea (such as threadworms); any illness that causes diarrhea; underactive thyroid; diabetes; a stomach ulcer, diverticulitis; a colostomy or ileostomy; osteoporosis or low bone mineral density (steroid medication can increase your risk of bone loss); low levels of calcium or potassium in your blood; cirrhosis or other liver disease; mental illness or psychosis; or a muscle disorder such as myasthenia gravis. Long-term use of steroids may lead to bone loss (osteoporosis), especially if you smoke or drink alcohol, if you do not exercise, or if you do not get enough vitamin D or calcium in your diet. It is not known whether this medicine will harm an unborn baby. Tell your doctor if you are or plan to become . You should not breastfeed while using prednisone. How should I take prednisone? Follow all directions on your prescription label and read all medication guides or instruction sheets. Your doctor may occasionally change your dose. Use the medicine exactly as directed. Prednisone is taken daily or every other day, depending on the condition being treated. You may need to take the medicine at a certain time of day. Follow your doctor's instructions about when and how often to take this medicine. Take with food if prednisone upsets your stomach. Measure liquid medicine carefully. Use the dosing syringe provided, or use a medicine dose-measuring device (not a kitchen spoon). Swallow the delayed-release tablet whole and do not crush, chew, or break it. Prednisone can weaken (suppress) your immune system, and you may get an infection more easily. Callyour doctor if you have signs of infection (fever, weakness, cold or flu symptoms, skin sores, diarrhea, frequent or recurring illness). If you have major surgery or a severe injury or infection, your prednisone dose needs may change. Make sure any doctor caring for you knows you are using this medicine. If you use this medicine long-term, you may need medical tests and vision exams. In case of emergency, wear or carry medical identification to let others know you use a steroid. You should not stop using prednisone suddenly. Follow your doctor's instructions about tapering your dose. Store at room temperature away from moisture, heat, and light. What happens if I miss a dose? Take the medicine as soon as you can, but skip the missed dose if it is almost time for your next dose. Do not take two doses at one time. What happens if I overdose? Seek emergency medical attention or call the Poison Help line at . High doses or long-term use of prednisone can lead to thinning skin, easy bruising, changes in bodyfat (especially in your face, neck, back, and waist), increased acne or facial hair, menstrual problems, impotence, or loss of interest in sex. What should I avoid while taking prednisone? Do not receive a 'live' vaccine while using prednisone. The vaccine may not work as well and may not fully protect you from disease. Live vaccines include measles, mumps, rubella (MMR), polio, rotavirus, typhoid, yellow fever, varicella (chickenpox), zoster (shingles), and nasal flu (influenza) vaccine. Avoid being near people who are sick or have infections. Call your doctor for preventive treatment if you are exposed to chickenpox or measles. These conditions can be serious or even fatal in peoplewho are using steroid medicine. Avoid drinking alcohol. What are the possible side effects of prednisone? Get emergency medical help if you have signs of an allergic reaction: hives; difficult breathing; swelling of your face, lips, tongue, or throat. Call your doctor at once if you have: muscle pain or weakness; blurred vision, tunnel vision, eye pain, or seeing halos around lights; severe depression, changes in personality, unusual thoughts or behavior; bloody or tarry stools, coughing up blood or vomit that looks like coffee grounds; swelling, rapid weight gain, feeling short of breath; irregular heartbeats; severe headache, pounding in your neck or ears; decreased adrenal gland hormones--muscle weakness, tiredness, diarrhea, nausea, menstrual changes, skin discoloration, craving salty foods, and feeling light- headed; or low potassium level--leg cramps, constipation, irregular heartbeats, fluttering in your chest, increased thirst or urination, numbness or tingling, muscle weakness or limp feeling. Prednisone can affect growth in children. Tell your doctor if your child is not growing at a normalrate while using this medicine. Common side effects may include: weight gain (especially in your face or your upper back and torso); increased appetite; mood changes, trouble sleeping; changes in your menstrual periods; problems with memory or thought; muscle or joint pain; weakness; headache, dizziness, spinning sensation; nausea, bloating, loss of appetite; slow wound healing; or acne, increased sweating, thinning skin, bruising, pinpoint spots under your skin. This is not a complete list of side effects and others may occur. Call your doctor for medical advice about side effects. You may report side effects to FDA at 9-953-THX-0881. What other drugs will affect prednisone? Sometimes it is not safe to use certain medications at the same time. Some drugs can affect your blood levels of other drugs you take, which may increase side effects or make the medications less effective. Tell your doctor about all your current medicines. Many drugs can affect prednisone, especially: bupropion; cyclosporine; digoxin; ketoconazole; an antibiotic; control pills or hormone replacement therapy; a diuretic or 'water pill'; insulin or oral diabetes medicine; a blood thinner--warfarin, Coumadin, Jantoven; or NSAIDs (nonsteroidal anti-inflammatory drugs)--aspirin, ibuprofen (Advil, Motrin), naproxen (Aleve), celecoxib, diclofenac, indomethacin, meloxicam, and others. This list is not complete and many other drugs may affect prednisone. This includes prescription and bwvr-ckv-djliimq medicines, vitamins, and herbal products. Not all possible drug interactions are listed here. Where can I get more information? Your pharmacist can provide more information about prednisone. Remember, keep this and all other medicines out of the reach of children, never share your medicines with others, and use this medication only for the indication prescribed. Every effort has been made to ensure that the information provided by [employer]. ('[employer]') is accurate, up-to-date, and complete, but no guarantee is made to that effect. Drug information contained herein may be time sensitive. [employer] information has been compiled for use by healthcare practitioners and consumers in the [place] and therefore [employer] does not warrant that uses outside of the [place] are appropriate, unless specifically indicated otherwise. [employer] drug information does not endorse drugs, diagnose patients or recommend therapy. [employer] drug information isan informational resource designed to assist licensed healthcare practitioners in caring for their p atients and/or to serve consumers viewing this service as a supplement to, and not a substitute for, the expertise, skill, knowledge and judgment of healthcare practitioners. The absence of a warningfor a given drug or drug combination in no way should be construed to indicate that the drug or drug combination is safe, effective or appropriate for any given patient. [employer] does not assume any responsibility for any aspect of healthcare administered with the aid of information [employer] provides. The information contained herein is not intended to cover all possible uses, directions, precautions, warnings, drug interactions, allergic reactions, or adverse effects. If you have questions about the drugs you are taking, check with your doctor, nurse or pharmacist. Copyright 5400-0260 [employer]. Version: 10.. Revision Date: 01/03/2019. Education Materials Insect Bite Insects most often bite to protect themselves or their nests. Certain bugs, like fleas and mosquitoes, bite to feed. In some cases, the actual bite causes no pain. An itchy red welt or swelling may develop at the site of the bite. Most insect bites do not cause illness. And the itching and swellingmost often go away without treatment. However, an infection can develop if the bite is scratched and the skin broken. Rarely, a person may have an allergic reaction to an insect bite. If a stinger is visible at the bite spot, remove it as quickly as possible, as this can decrease the amount of venom that gets into your body. Scrape it out with a dull edge, such as the edge of a credit card. Try not to squeeze it. Do not try to dig it out, as you may damage the skin and also increase the chance of infection. To help reduce swelling and itching, apply a cold pack or ice in a zip-top plastic bag wrapped in athin towel. Home care Your healthcare provider may prescribe seea-hys-yemojsw medicines to help relieve itching and swelling. Use each medicine according to the directions on the package. If the bite becomes infected, youwill need an antibiotic. This may be in pill form taken by mouth or as an ointment or cream put directly on the skin. Be sure to use them exactly as prescribed. Bite symptoms usually go away on their own within a week or two. To help prevent infection, avoid scratching or picking at the bite. To help relieve itching and swelling, apply ice in a zip-top plastic bag wrapped in a thin towel tothe bites. Do this for up to 10 minutes at a time. Avoid hot showers or baths as these tend to makeitching worse. An snqq-wmp-fssltfx anti-itch medicine such as calamine lotion or an antihistamine cream may be helpful. If you suspect you have insects in your home, talk to a licensed pest-control professional. He or she can inspect your home and tell you how to get rid of bugs safely. Follow-up care Follow up with your healthcare provider, or as advised. Call 911 Call 911 if any of these occur: Trouble breathing or swallowing Wheezing Feeling like your throat is closing up Fainting, loss of consciousness Swelling around the face or mouth When to seek medical advice Call your healthcare provider right away if any of these occur: Fever of 100.4 F (38 C) or higher, or as directed by your healthcare provider Signs of infection, such as increased swelling and pain, warmth, red streaks, or drainage from the skin Signs of allergic reaction, such as hives, a spreading rash, or throat itching [id number] [employer]. [address] [place] [address], [place] [address]. All rights reserved. This information is not intended as a substitute for professional medical care. Always follow yourhealthcare professional's instructions. Insect Bite Insects most often bite to protect themselves or their nests. Certain bugs, like fleas and mosquitoes, bite to feed. In some cases, the actual bite causes no pain. An itchy red welt or swelling may develop at the site of the bite. Most insect bites do not cause illness. And the itching and swellingmost often go away without treatment. However, an infection can develop if the bite is scratched and the skin broken. Rarely, a person may have an allergic reaction to an insect bite. If a stinger is visible at the bite spot, remove it as quickly as possible, as this can decrease the amount of venom that gets into your body. Scrape it out with a dull edge, such as the edge of a credit card. Try not to squeeze it. Do not try to dig it out, as you may damage the skin and also increase the chance of infection. To help reduce swelling and itching, apply a cold pack or ice in a zip-top plastic bag wrapped in athin towel. Home care Your healthcare provider may prescribe dggn-bwh-djzuubl medicines to help relieve itching and swelling. Use each medicine according to the directions on the package. If the bite becomes infected, youwill need an antibiotic. This may be in pill form taken by mouth or as an ointment or cream put directly on the skin. Be sure to use them exactly as prescribed. Bite symptoms usually go away on their own within a week or two. To help prevent infection, avoid scratching or picking at the bite. To help relieve itching and swelling, apply ice in a zip-top plastic bag wrapped in a thin towel tothe bites. Do this for up to 10 minutes at a time. Avoid hot showers or baths as these tend to makeitching worse. An knvj-zwm-dubkgae anti-itch medicine such as calamine lotion or an antihistamine cream may be helpful. If you suspect you have insects in your home, talk to a licensed pest-control professional. He or she can inspect your home and tell you how to get rid of bugs safely. Follow-up care Follow up with your healthcare provider, or as advised. Call 911 Call 911 if any of these occur: Trouble breathing or swallowing Wheezing Feeling like your throat is closing up Fainting, loss of consciousness Swelling around the face or mouth When to seek medical advice Call your healthcare provider right away if any of these occur: Fever of 100.4 F (38 C) or higher, or as directed by your healthcare provider Signs of infection, such as increased swelling and pain, warmth, red streaks, or drainage from the skin Signs of allergic reaction, such as hives, a spreading rash, or throat itching [id number] [employer]. [address] [place] [id number]. All rights reserved. This information is not intended as a substitute for professional medical care. Always follow yourhealthcare professional's instructions. Additional Information VACCINATE! IT SAVES LIVES! Members of the community who have not yet received the COVID-19 vaccine and would like to receive it can visit one of [facility] vaccine clinics. There are many vaccine clinic locations within the [facility]. For locations and available times, please visit [email or web address]. It is important to note that some COVID mobile vaccine clinics are held outdoors and may be canceled in rainy orstormy conditions. To learn more about pediatric vaccinations (ages 5-11), we invite you to visit the [facility] webpage. [email or web address] learn more about the COVID-19 vaccine, we invite you to visit the [facility] website for a list of frequently asked questions. [email or web address] [facility] Patient Portal Access Instructions: Stay connected with your healthcare team and access your personal medical information anytime with the [facility] Patient Portal. If you would like a full copy of your medical records please contact the [facility] Medical Records Department Monday through Monday between 8a.m. and 4:30p.m. Please follow the directions below to access the portal: 1.Access the email account you provided upon registration to the [facility].2.Look for an invitation email from [facility].3.Open the email and access the invitation link: Accept Invitation to [facility]4.Fill in the required [place] to create your account. Sign into [email or web address] with your username and password that you created in the above steps to stay up to date. You can then view a summary of results, a summary of your visits, and the ability to download your summaries to your computer or send the information securely to a physician. Remember that your healthcare information is confidential, so carefully consider who you will allow to register on the [facility] Patient Portal for access to your information. You can also access the [facility] Patient Portal on the [employer]. Simply click on Health Records under [place] and then click on the [facility] logo. HOW TO SAFELY DISPOSE OF PRESCRIPTION MEDICATIONS Please use one of the following methods to safely dispose of your unused medications. 1.Use a drug disposal kit: the drug disposal pouch allows you to safely discard your old and unuseddrugs. Ask your nurse to give you one when you are discharged.2.Visit a local take-back location: Many local pharmacies and police departments have programs that collect old and unwanted prescriptiondrugs. Call your local pharmacy or go to http://[facility].[employer]/3C3Wi4g to find one close to you.3.Make use of household items: Use cat litter or old coffee grounds to dispose medications if other options arenot available. Mix your drugs with these household products, seal them in an airtight container andthrow it into the garbage. Call [facility]: [phone] to be sure your drugs can be disposed of in this way. Some medicines may require a different approach.4.Never flush your medications down the toilet. IF YOU HAVE BEEN PRESCRIBED AN OPIOIDS FOR PAIN If you have been prescribed an opioid (such as hydrocodone, oxycodone or morphine), it is critical to understand the possible side effects and risks of opioid pain medications. Even when taken as directed, opioids can have several side effects including: Tolerance, meaning you might need to take more of a medication for the same pain relief. Nausea, vomiting and/or constipation. Sleepiness, dizziness, dry mouth, confusion, depression or itching. Physical dependence, meaning you have withdrawal symptoms when a medication is stopped ? this can develop within a few days. KNOW YOUR RESPONSIBILITIES It is important to know exactly how much and how often to take the opioid pain medications you are prescribed. Never take opioids in higher amounts or more often than prescribed. Do not combine opioids with alcohol or other drugs that cause drowsiness, such as benzodiazepines, also known as benzos,including diazepam and alprazolam, muscle relaxants or sleep aids. Never sell or share prescriptionopioids. This is illegal. Store opioids in a secure place and out of reach of others (including children, family, friends and visitors). The last page(s) of this document has been signed and retained as a CHART COPY Signatures Patient Education Materials Insect Bite Insect Bite Medication Leaflets prednisone My discharge plan and instructions have been reviewed and explained to me and I,CHRISTA BROWN understand my current condition and have read and understand these discharge instructions. I have received a written copy of the plan/instructions. If I have questions, I am aware that I should contact my doctor. Patient/[employer] Operator Signature: Date/Time: Relationship to Patient: Witness Name/Signature: Date/Time: [facility]08-27-2022 Miscellaneous Notes* Telephone Encounter - Daryl Zhang LPN - 06/04/2022 9:52 AM EDT Spoke with pt's significant other and he states they were wondering the same thing about seeing pcpteam. Appointment for today has been cancelled and pt will call back to reschedule with pcp team. Did not want to reschedule at this time. Daryl Zhang LPN * Telephone Encounter - Daryl Zhang LPN - 06/04/2022 8:12 AM EDT Attempted to contact pt. No answer and vm was full. Pt has appt today and was just seen in ER yesterday. She was advised at discharge to f/u in 2-4 days. Pt really needs to see pcp team on Mon. Not much more Dr Kohli can do for her today and would be better to be see by her team if pt is agreeableto this. If pt cancels please let office know as schedule needs to be adjusted. Daryl Zhang LPN [facility] Discharge instructions Patient Education 06/03/2022 07:03:51 Abdominal Pain, Unknown Cause, (Female) Unknown Causes of Abdominal Pain (Female) The exact cause of your belly (abdominal) pain is not clear. This does not mean that this is something to worry about. Everyone likes to know the exact cause of the problem. But sometimes with belly pain, there is no clear-cut cause, and this could be a good thing. The good news is that your symptoms can be treated, and you will feel better. Your condition does not seem serious now. But sometimes the signs of a serious problem may take more time to appear. For this reason, it is important for you to watch for any new symptoms, problems, or worsening of your condition. Over the next few days, the abdominal pain may come and go. Or it may be constant. Other common symptoms can include nausea and vomiting. Sometimes it can be difficult to tell if you feel nauseous. You may just feel bad and not connect that feeling to nausea. Constipation, diarrhea, and a fever maygo along with the pain. The pain may continue even if treated correctly over the following days. Depending on how things go, sometimes the cause can become clear and may need more or different treatment. Additional evaluations, medicines, or tests may also be needed. Home care Your healthcare provider may prescribe medicine for pain, symptoms, or an infection. Follow the healthcare provider's instructions for taking these medicines. General care Rest as much as you can until your next exam. No strenuous activities. Try to find positions that ease discomfort. A small pillow placed on the abdomen may help relieve pain. Something warm on your abdomen (such as a heating pad) may help, but be careful not to burn yourself. Diet Don t force yourself to eat, especially if having cramps, vomiting, or diarrhea. Water is important so you don't get dehydrated. Soup may also be good. Sports drinks may also help,especially if they are not too acidic. Don't drink sugary drinks as this can make things worse. Take liquids in small amounts. Don t guzzle them. Caffeine sometimes makes the pain and cramping worse. Don t take dairy products if you have vomiting or diarrhea. Don't eat large amounts at a time. Wait a few minutes between bites. Eat a diet low in fiber (called a low-residue diet). Foods allowed include refined breads, white rice, fruit and vegetable juices without pulp, tender meats. These foods will pass more easily throughthe intestine. Don t have whole-grain foods, whole fruits and vegetables, meats, seeds and nuts, fried or fatty foods, dairy, alcohol and spicy foods until your symptoms go away. Follow-up care Follow up with your healthcare provider, or as advised, if your pain does not begin to improve in the next 24 hours. Call 911 Call 911 if any of these occur: Trouble breathing Confusion Fainting or loss of consciousness Rapid heart rate Seizure When to seek medical advice Call your healthcare provider right away if any of these occur: Pain gets worse or moves to the right lower abdomen New or worsening vomiting or diarrhea Swelling of the abdomen Unable to pass stool for more than 3 days Fever of 100.4 F (38 C) or higher, or as directed by your healthcare provider. Blood in vomit or bowel movements (dark red or black color) Yellow color of eyes and skin (jaundice) Weakness, dizziness Chest, arm, back, neck, or jaw pain Unexpected vaginal bleeding or missed period Can't keep down liquids or water and you are getting dehydrated [id number] [employer]. [address] [place] [id number]. All rights reserved. This information is not intended as a substitute for professional medical care. Always follow yourhealthcare professional's instructions. Follow Up Care 06/03/2022 05:13:27 With:DARON BECK MD Address: [facility] [address] [place] [address] [phone] When:2-4 days [facility] 08-26-2022 Note Discharge Instructions Thank you for allowing [facility] to assist you with your healthcare needs. The following is importantdischarge information regarding your hospital visit. Diagnosis from Today's Visit Abdominal pain Abdominal pain What to Do Next Instructions from Your Care Team Clear liquid diet. Advance as tolerated. No qualifying data available. Post Acute Orders No qualifying data available. You Need to Schedule the Following Appointments Follow Up with DARON BECK MD When Within 2-4 days Where: [facility] [address] [place] [address]- [phone] Allergies Augmentin Medications Please ask your primary doctor or pharmacist before taking any other medication not listed, including over the counter drugs, herbal medications, vitamins and or supplements as they may interact withyour home medications. What How Much When Why Instructions Last Dose New naproxen (naproxen 500 mg oral tablet) 1 tab(s) by mouth Two (2) times a day Abdominal pain Printed Prescription Unchanged albuterol (Albuterol (Eqv-ProAir HFA) 90 mcg/ inh inhalation aerosol) 2 puff(s) by inhalation Every 4 hours as needed for Wheezing Unchanged cetirizine (Zyrtec 10 mg oral tablet) 1 tab(s) by mouth Once a day Duration: 7 Days Unchanged doxylamine-pyridoxine (Diclegis 10 mg-10 mg oral delayed release tablet) 2 tab(s) by mouth Daily at bedtime Vomiting of Unchanged etodolac (etodolac 400 mg oral tablet) 1 tab(s) by mouth Two (2) times a day Duration: 7 Days Unchanged fluconazole (fluconazole 150 mg oral tablet) Unchanged ibuprofen (ibuprofen 600 mg oral tablet) Unchanged multivitamin (Multivitamin) 2 tab(s) by mouth Every day Unchanged ondansetron (Zofran ODT use ondansetron oral tablet, disintegrating ) 4 Milligram by mouth Every 8 hours as needed for as needed for nausea/vomiting Vomiting of Duration: 5 Days Unchanged predniSONE (predniSONE 50 mg oral tablet) 1 tab(s) by mouth Every day Costochondritis Duration: 5 Days Unchanged sertraline (Zoloft) by mouth Once a day Please take this list to your next doctor s visit. Bring all medications you take, including over the counter medications, herbals and other supplements with you to your doctor s visit. Patients and families are reminded to discard old lists and to update any records with all medication providers or retail pharmacies. Medication Leaflets naproxen (na PROX en) Aleve, Anaprox-DS, Midol Extended Relief, Naprelan 500, Naprosyn What is the most important information I should know about naproxen? Naproxen can increase your risk of fatal heart attack or stroke. Do not use this medicine just before or after heart bypass surgery (coronary artery bypass graft, or CABG). Naproxen may also cause stomach or intestinal bleeding, which can be fatal. What is naproxen? Naproxen is a nonsteroidal anti-inflammatory drug (NSAID). Naproxen is used to treat pain or inflammation caused by conditions such as arthritis, ankylosing spondylitis, tendinitis, bursitis, gout, or menstrual cramps. The delayed-release or extended-release tablets are slower-acting forms of naproxen that are used only for treating chronic conditions such as arthritis or ankylosing spondylitis. These forms of naproxen will not work fast enough to treat acute pain. Naproxen may also be used for purposes not listed in this medication guide. What should I discuss with my healthcare provider before taking naproxen? Naproxen can increase your risk of fatal heart attack or stroke, even if you don't have any risk factors. Do not use this medicine just before or after heart bypass surgery (coronary artery bypass graft, or CABG). Naproxen may also cause stomach or intestinal bleeding, which can be fatal. These conditions can occur without warning while you are using naproxen, especially in older adults. You should not use naproxen if you are allergic to it, or if you have ever had an asthma attack or severe allergic reaction after taking aspirin or an NSAID. Ask a doctor before giving naproxen to a child younger than 12 years old. Ask a doctor or pharmacist if this medicine is safe to use if you have: heart disease, high blood pressure, high cholesterol, diabetes, or if you smoke; a heart attack, stroke, or blood clot; stomach ulcers or bleeding; asthma; liver or kidney disease; fluid retention; or if you take aspirin to prevent heart attack or stroke. If you are , you should not take naproxen unless your doctor tells you to. Taking an NSAID during the last 20 weeks of can cause serious heart or kidney problems in the unborn baby and possible complications with your . It may not be safe to breastfeed while using this medicine. Ask your doctor about any risk. How should I take naproxen? Use exactly as directed on the label, or as prescribed by your doctor. Use the lowest dose that is effective in treating your condition. Shake the oral suspension (liquid) before you measure a dose. Measure a dose with the supplied measuring device (not a kitchen spoon). Take this medicine with food or milk if it upsets your stomach. Always follow directions on the medicine label about giving this medicine to a child. Naproxen doses are based on weight in children. Your child's dose needs may change if the child gains or loses weight. If you use naproxen long-term, you may need frequent medical tests. This medicine can affect the results of certain medical tests. Tell any doctor who treats you that you are using naproxen. Store at room temperature away from moisture, heat, and light. Keep the bottle tightly closed when not in use. What happens if I miss a dose? Since naproxen is used when needed, you may not be on a dosing schedule. Skip any missed dose if it's almost time for your next dose. Do not use two doses at one time. What happens if I overdose? Seek emergency medical attention or call the Poison Help line at . What should I avoid while taking naproxen? Avoid drinking alcohol. It may increase your risk of stomach bleeding. Avoid taking aspirin or other NSAIDs unless your doctor tells you to. Ask a doctor or pharmacist before using other medicines for pain, fever, swelling, or cold/flu symptoms. They may contain ingredients similar to naproxen (such as aspirin, ibuprofen, or ketoprofen). Ask your doctor before using an antacid, and use only the type your doctor recommends. Some antacids can make it harder for your body to absorb naproxen. What are the possible side effects of naproxen? Get emergency medical help if you have signs of an allergic reaction (runny or stuffy nose, wheezing or trouble breathing, hives, swelling in your face or throat) or a severe skin reaction (fever, sore throat, burning eyes, skin pain, red or purple skin rash with blistering and peeling). Stop using naproxen and seek medical treatment if you have a serious drug reaction that can affect many parts of your body. Symptoms may include skin rash, fever, swollen glands, muscle aches, severeweakness, unusual bruising, or yellowing of your skin or eyes. Get emergency medical help if you have signs of a heart attack or stroke: chest pain spreading to your jaw or shoulder, sudden numbness or weakness on one side of the body, slurred speech, leg swelling, feeling short of breath. Stop using naproxen and call your doctor at once if you have: shortness of breath (even with mild exertion); swelling or rapid weight gain; the first sign of any skin rash or blister, no matter how mild; signs of stomach bleeding--bloody or tarry stools, coughing up blood or vomit that looks like coffee grounds; liver problems--nausea, upper stomach pain, loss of appetite, dark urine, carmine- colored stools, jaundice (yellowing of the skin or eyes); kidney problems--little or no urination, painful urination, swelling in your feet or ankles; or low red blood cells (anemia)--pale skin, unusual tiredness, feeling light-headed or short of breath, cold hands and feet. Common side effects may include: headache; indigestion, heartburn, stomach pain; or flu symptoms; This is not a complete list of side effects and others may occur. Call your doctor for medical advice about side effects. You may report side effects to FDA at 9-213-RAU-0108. What other drugs will affect naproxen? Ask your doctor before using naproxen if you take an antidepressant. Taking certain antidepressantswith an NSAID may cause you to bruise or bleed easily. Ask a doctor or pharmacist before using naproxen with any other medications, especially: other NSAIDs or salicylates (diflunisal, salsalate); antacids and sucralfate; cholestyramine; cyclosporine; digoxin; lithium; methotrexate; pemetrexed; probenecid; warfarin (Coumadin, Jantoven) or similar blood thinners; a diuretic or 'water pill'; or heart or blood pressure medication. This list is not complete. Other drugs may affect naproxen, including prescription and uglq-the-qxbllzr medicines, vitamins, and herbal products. Not all possible drug interactions are listed here. Where can I get more information? Your pharmacist can provide more information about naproxen. Remember, keep this and all other medicines out of the reach of children, never share your medicines with others, and use this medication only for the indication prescribed. Every effort has been made to ensure that the information provided by [employer]. ('[employer]') is accurate, up-to-date, and complete, but no guarantee is made to that effect. Drug information contained herein may be time sensitive. [employer] information has been compiled for use by healthcare practitioners and consumers in the [place] and therefore [employer] does not warrant that uses outside of the [place] are appropriate, unless specifically indicated otherwise. [employer] drug information does not endorse drugs, diagnose patients or recommend therapy. [employer] drug information isan informational resource designed to assist licensed healthcare practitioners in caring for their p atients and/or to serve consumers viewing this service as a supplement to, and not a substitute for, the expertise, skill, knowledge and judgment of healthcare practitioners. The absence of a warningfor a given drug or drug combination in no way should be construed to indicate that the drug or drug combination is safe, effective or appropriate for any given patient. [employer] does not assume any responsibility for any aspect of healthcare administered with the aid of information [employer] provides. The information contained herein is not intended to cover all possible uses, directions, precautions, warnings, drug interactions, allergic reactions, or adverse effects. If you have questions about the drugs you are taking, check with your doctor, nurse or pharmacist. Copyright 2331-2789 [employer]. Version: 20.. Revision Date: 02/15/2022. Education Materials Unknown Causes of Abdominal Pain (Female) The exact cause of your belly (abdominal) pain is not clear. This does not mean that this is something to worry about. Everyone likes to know the exact cause of the problem. But sometimes with belly pain, there is no clear-cut cause, and this could be a good thing. The good news is that your symptoms can be treated, and you will feel better. Your condition does not seem serious now. But sometimes the signs of a serious problem may take more time to appear. For this reason, it is important for you to watch for any new symptoms, problems, or worsening of your condition. Over the next few days, the abdominal pain may come and go. Or it may be constant. Other common symptoms can include nausea and vomiting. Sometimes it can be difficult to tell if you feel nauseous. You may just feel bad and not connect that feeling to nausea. Constipation, diarrhea, and a fever maygo along with the pain. The pain may continue even if treated correctly over the following days. Depending on how things go, sometimes the cause can become clear and may need more or different treatment. Additional evaluations, medicines, or tests may also be needed. Home care Your healthcare provider may prescribe medicine for pain, symptoms, or an infection. Follow the healthcare provider's instructions for taking these medicines. General care Rest as much as you can until your next exam. No strenuous activities. Try to find positions that ease discomfort. A small pillow placed on the abdomen may help relieve pain. Something warm on your abdomen (such as a heating pad) may help, but be careful not to burn yourself. Diet Don t force yourself to eat, especially if having cramps, vomiting, or diarrhea. Water is important so you don't get dehydrated. Soup may also be good. Sports drinks may also help,especially if they are not too acidic. Don't drink sugary drinks as this can make things worse. Take liquids in small amounts. Don t guzzle them. Caffeine sometimes makes the pain and cramping worse. Don t take dairy products if you have vomiting or diarrhea. Don't eat large amounts at a time. Wait a few minutes between bites. Eat a diet low in fiber (called a low-residue diet). Foods allowed include refined breads, white rice, fruit and vegetable juices without pulp, tender meats. These foods will pass more easily throughthe intestine. Don t have whole-grain foods, whole fruits and vegetables, meats, seeds and nuts, fried or fatty foods, dairy, alcohol and spicy foods until your symptoms go away. Follow-up care Follow up with your healthcare provider, or as advised, if your pain does not begin to improve in the next 24 hours. Call 911 Call 911 if any of these occur: Trouble breathing Confusion Fainting or loss of consciousness Rapid heart rate Seizure When to seek medical advice Call your healthcare provider right away if any of these occur: Pain gets worse or moves to the right lower abdomen New or worsening vomiting or diarrhea Swelling of the abdomen Unable to pass stool for more than 3 days Fever of 100.4 F (38 C) or higher, or as directed by your healthcare provider. Blood in vomit or bowel movements (dark red or black color) Yellow color of eyes and skin (jaundice) Weakness, dizziness Chest, arm, back, neck, or jaw pain Unexpected vaginal bleeding or missed period Can't keep down liquids or water and you are getting dehydrated [id number] [employer]. [address] [place] [address], [place] [address]. All rights reserved. This information is not intended as a substitute for professional medical care. Always follow yourhealthcare professional's instructions. Additional Information VACCINATE! IT SAVES LIVES! Members of the community who have not yet received the COVID-19 vaccine and would like to receive it can visit one of [facility] vaccine clinics. There are many vaccine clinic locations within the [facility]. For locations and available times, please visit [email or web address]. It is important to note that some COVID mobile vaccine clinics are held outdoors and may be canceled in rainy orstormy conditions. To learn more about pediatric vaccinations (ages 5-11), we invite you to visit the [facility] webpage. [email or web address] learn more about the COVID-19 vaccine, we invite you to visit the [facility] website for a list of frequently asked questions. 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 HAND MINIMUM 3 VIEWS Hector Johnson APRN.CHIROPRACTOR SOLE PRACTITIONER [address] [place] [address] Xr Imaging Referral ID Status Reason Start Date Expiration Date V isits Requested Visits Authorized [id number] Closed Auto-Generate d Referral 08/22/2022 09/21/2023 1 1 [facility] for referral (narrative)* Diagnostic Procedure Only (Routine) - Closed Specialty Diagnoses / Procedures Referred By Contac t Referred To Contact XR IMAGING Diagnoses Dog bite of left hand, initial encounter Procedures XR HAND GENERAL 3V PA/LAT/OBL LEFT RADEX HAND MINIMUM 3 VIEWS Daron Beck MD [address] [place] [address] Xr Imaging Referral ID Status Reason Start Date Expiration Date V isits Requested Visits Authorized [id number] Closed Auto-Generate d Referral 09/09/2022 10/09/2023 1 1 [facility] for referral (narrative)* Diagnostic Procedure Only (Routine) - Authorized Specialty Diagnoses / Procedures Referred By Contac t Referred To Contact [facility] Diagnoses Marginal placenta, antepartum Late care with care elsewhere, antepartum Procedures OBSTETRIC ULTRASOUND WHI US PREG UTERUS AFTER 1ST TRIMEST GESTATION Ronna Damon MD [address] [place] [address] [facility] [address] [place] [address] Referral ID Status Reason Start Date Expiration Date Visits Requested Visits Authorized [id number] Authorized Auto-Generat ed Referral 07/10/2023 07/09/2024 1 1 [facility] Diagnostic Procedure Only (Routine) - Pending Review Specialty Diagnoses / Procedures Referred By Contac t Referred To Contact [facility] Diagnoses 28 weeks gestation of Procedures OBSTETRIC ULTRASOUND WHI US PREG UTERUS AFTER 1ST TRIMEST GESTATION Isa Pedraza APRN.CNM [address] [place] [address] [facility] [address] [place] [address] Referral ID Status Reason Start Date Expiration Date Visits Requested Visits Authorized [id number] Pending Review Auto-Generat ed Referral 07/27/2024 1 1 [facility] Reason for Referral Specialty Diagnoses / Procedures Referred By Contac t Referred To Contact Ent - Otolaryngology Diagnoses Ear pain, bilateral Procedures CONSULT TO ENT OFFICE/OUTPATIENT [facility] 60-74 MINUTES Kathy Jo, BRYCE.CHIROPRACTOR SOLE PRACTITIONER [address] [place] [address] Referral ID Status Reason Start Date Expiration Date Visits Requested Visits Authorized [id number] Pending Review PCP Requested Referral 07/11/2023 07/10/2024 1 1 Specialty Diagnoses / Procedures Referred By Contac t Referred To Contact CT IMAGING Diagnoses Injury of head, initial encounter Non-intractable cyclical vomiting with nausea Frontal headache Procedures CT BRAIN WO IVCON CT HEAD/BRAIN W/O CONTRAST MATERIAL Edith Oleary PA-C [address] [place] [address] Ct Imaging Referral ID Status Reason Start Date Expiration Date Visits Requested Visits Authorized [id number] Pending Review Auto-Generat ed Referral 2 08/17/2023 1 1 Health Concerns Problem Noted Date Diagnosed Date [facility] - [facility] 07/28/2023 Education - [place] 07/28/2023 Problem Noted Date Diagnosed Date [facility] - [facility] 07/28/2023 Education - [place] 07/28/2023 Problem Noted Date Diagnosed Date [facility] - [facility] 07/28/2023 Education - [place] 07/28/2023 Problem Noted Date Diagnosed Date [facility] - [facility] 07/28/2023 Education - [place] 07/28/2023 Problem Noted Date Diagnosed Date [facility] - [facility] 07/28/2023 Education - [place] 07/28/2023 Summary Purpose Family History No Family History Records Found Advance Directives No Advanced Directives Records FoundNo Advanced Directives Records Found Additional Source Comments Source Comments (unrecognize d section and content) In the event this informatio n is protected by the Federal Confidentiality of Alcohol and Drug Abuse Patient Records regulations: The Federal rules restrict any use of the information to criminally investigate or prosecute any alcohol or drug abuse patient.[facility] the event this information is protected by the Federal Confidentiality of Alcohol and Drug Abuse Patient Records regulations: The Federal rules restrict any use of the information to criminally investigate or prosecute any alcohol or drug abuse patient.[facility] the event this information is protected by the Federal Confidentiality of Alcohol and Drug Abuse Patient Records regulations: The Federal rules restrict any use of the information to criminally investigate or prosecute any alcohol or drug abuse patient.[facility] the event this information is protected by the Federal Confidentiality of Alcohol and Drug Abuse Patient Records regulations: The Federal rules restrict any use of the information to criminally investigate or prosecute any alcohol or drug abuse patient.[facility] the event this information is protected by the Federal Confidentiality of Alcohol and Drug Abuse Patient Records regulations: The Federal rules restrict any use of the information to criminally investigate or prosecute any alcohol or drug abuse patient.[facility] the event this information is protected by the Federal Confidentiality of Alcohol and Drug Abuse Patient Records regulations: The Federal rules restrict any use of the information to criminally investigate or prosecute any alcohol or drug abuse patient.[facility] the event this information is protected by the Federal Confidentiality of Alcohol and Drug Abuse Patient Records regulations: The Federal rules restrict any use of the information to criminally investigate or prosecute any alcohol or drug abuse patient.[facility] the event this information is protected by the Federal Confidentiality of Alcohol and Drug Abuse Patient Records regulations: The Federal rules restrict any use of the information to criminally investigate or prosecute any alcohol or drug abuse patient.[facility] the event this information is protected by the Federal Confidentiality of Alcohol and Drug Abuse Patient Records regulations: The Federal rules restrict any use of the information to criminally investigate or prosecute any alcohol or drug abuse patient.[facility] the event this information is protected by the Federal Confidentiality of Alcohol and Drug Abuse Patient Records regulations: The Federal rules restrict any use of the information to criminally investigate or prosecute any alcohol or drug abuse patient.[facility] the event this information is protected by the Federal Confidentiality of Alcohol and Drug Abuse Patient Records regulations: The Federal rules restrict any use of the information to criminally investigate or prosecute any alcohol or drug abuse patient.[facility] the event this information is protected by the Federal Confidentiality of Alcohol and Drug Abuse Patient Records regulations: The Federal rules restrict any use of the information to criminally investigate or prosecute any alcohol or drug abuse patient.[facility] the event this information is protected by the Federal Confidentiality of Alcohol and Drug Abuse Patient Records regulations: The Federal rules restrict any use of the information to criminally investigate or prosecute any alcohol or drug abuse patient.[facility] the event this information is protected by the Federal Confidentiality of Alcohol and Drug Abuse Patient Records regulations: The Federal rules restrict any use of the information to criminally investigate or prosecute any alcohol or drug abuse patient.[facility] the event this information is protected by the Federal Confidentiality of Alcohol and Drug Abuse Patient Records regulations: The Federal rules restrict any use of the information to criminally investigate or prosecute any alcohol or drug abuse patient.[facility] the event this information is protected by the Federal Confidentiality of Alcohol and Drug Abuse Patient Records regulations: The Federal rules restrict any use of the information to criminally investigate or prosecute any alcohol or drug abuse patient.[facility] the event this information is protected by the Federal Confidentiality of Alcohol and Drug Abuse Patient Records regulations: The Federal rules restrict any use of the information to criminally investigate or prosecute any alcohol or drug abuse patient.[facility] the event this information is protected by the Federal Confidentiality of Alcohol and Drug Abuse Patient Records regulations: The Federal rules restrict any use of the information to criminally investigate or prosecute any alcohol or drug abuse patient.[facility] the event this information is protected by the Federal Confidentiality of Alcohol and Drug Abuse Patient Records regulations: The Federal rules restrict any use of the information to criminally investigate or prosecute any alcohol or drug abuse patient.[facility] the event this information is protected by the Federal Confidentiality of Alcohol and Drug Abuse Patient Records regulations: The Federal rules restrict any use of the information to criminally investigate or prosecute any alcohol or drug abuse patient.[facility] Reason for Visit (unrecogniz ed section and content) Reason Comments Appointment Reason Comments Anxiety Reason Comments Hand Injury R hand and wrist inj ury x1 day Reason Comments Follow Up Reason Comments Anxiety Reason Comments requesting medication today Reason Comments ED Follow-up Reason Comments Results Reason Comments Care Reason Comments Acute Visit Bilateral ear pain/p ressure; will need referral to ENT Reason Comments US Specialty Diagnoses / Procedures Referred By Contac t Referred To Contact [facility] Diagnoses Marginal placenta, antepartum Late care with care elsewhere, antepartum Procedures OBSTETRIC ULTRASOUND WHI US PREG UTERUS AFTER 1ST TRIMEST GESTATION Ronna Damon MD [address] [place] [address] [facility] [address] [place] [address] Referral ID Status Reason Start Date Expiration Date V isits Requested Visits Authorized [id number] Closed Auto-Generate d Referral 07/10/2023 07/09/2024 1 1 Reason Comments PRAF Reason Onset Date Comments Care 08/24/2023 Specialty Diagnoses / Procedures Referred By Contac t Referred To Contact [facility] Diagnoses 28 weeks gestation of Procedures OBSTETRIC ULTRASOUND WHI US PREG UTERUS AFTER 1ST TRIMEST GESTATION Isa Pedraza APRN.CNM [address] [place] [address] [facility] [address] [place] [address] Referral ID Status Reason Start Date Expiration Date V isits Requested Visits Authorized [id number] Closed Auto-Generate d Referral 07/28/2023 07/27/2024 1 1 Reason Onset Date Comments Care 09/07/2023 Care Teams (unrecognized sec tion and content) [facility] Nurse Relationship Specialty Start Date End Date Daron Beck MD [address] [place] [address] PCP - General Family Practice 12/07/21 Imcu Nurse Relationship Specialty Start Date End Date Daron Beck MD [address] [place], [place] [address] PCP - General Family Medicine 12/07/21 Im[facility] Nurse Relationship Specialty Start Date End Date Daron Beck MD [address] [place] [address] PCP - General Family Medicine 12/07/21 Im[facility] Nurse Relationship Specialty Start Date End Date Daron Beck MD [address] [place] [address] PCP - General Family Medicine 12/07/21 Imcu Nurse Relationship Specialty [place] [address] [place] [address] [place] [address] PCP - General Family Medicine 12/07/21 Imcu Nurse Relationship Specialty Start Date End Date Daron Beck MD [address] [facility] [place] [address] PCP - General Family Medicine 12/07/21 Imcu Nurse Relationship Specialty Start Date End Date Daron Beck MD [address] [place] [address] PCP - General Family Medicine 12/07/21 Imcu Nurse Relationship Specialty Start Date End Date Daron Beck MD [address] [place] [address] PCP - General Family Medicine 12/07/21 Imcu Nurse Relationship Specialty Start Date End Date Daron Beck MD [address] [place] [address] PCP - General Family Medicine 12/07/21 Imcu Nurse Relationship Specialty Start Date End Date Daron Beck MD [address] [place] [address] PCP - General Family Medicine 12/07/21 Imcu Nurse Relationship Specialty Start Date End Date Daron Beck MD [address] [place] [address] PCP - General Family Medicine 12/07/21 Imcu Nurse Relationship Specialty Start Date End Date Daron Beck MD [address] [place] [address] PCP - General Family Medicine 12/07/21 Imcu Nurse Relationship Specialty Start Date End Date Daron Beck MD [address] [place], [place] [address] PCP - General Family Medicine 12/07/21 Imcu Nurse Relationship Specialty Start Date End Date Daron Beck MD [address] [place] [address] PCP - General Family Medicine 12/07/21 Imcu Nurse Relationship Specialty Start Date End Date Daron Beck MD [address] [place] [address] PCP - General Family Medicine 12/07/21 Imcu Nurse Relationship Specialty Start Date End Date Daron Beck MD [address] [place] [address] PCP - General Family Medicine 12/07/21 Imcu Nurse Relationship Specialty Start Date End Date Daron Beck MD [address] [place] [address] PCP - General Family Medicine 12/07/21 Care Team (unrecognized sect ion and content) Personnel Name: JENY CHERRY PA-C Address: Address: [address] [place] [address]- Care Team Personnel Name: DARON BECK MD Member Role: Primary Care Physician Address: Address: [place] [address]- Name: Cam Madrid RN Position: AO RN Member Role: RN Name: GUILLERMO Whalen Position: AO RN Member Role: ED RN Care Team Related Persons Name: PALLAVI LYN Address: [facility] MA[facility] Address: Home [address] [place] [address] Name: TORRIE DEWITT Name: PALMA BROWN Address: Home [address] [facility] [address] [place] [address] Care Team Personnel Name: DARON BECK MD Member Role: Primary Care Physician Address: Address: [place] [address]- Care Team Related Persons Name: PALLAVI LYN Address: [facility] [place] Address: Home [id number] [place] [address] Name: TORRIE DEWITT Name: PALMA BROWN Address: Home [address] [place] [address] Care Team Personnel Name: DARON BECK MD Member Role: Primary Care Physician Address: Address: [facility] [address] [place] [id number] Name: SHU GARCIA MD Position: ED Physician Member Role: Attending Physician Address: Address: [address] [place] [address] Name: Mel Shah RN Position: ED RN Member Role: ED RN Care Team Related Persons Name: PALLAVI LYN Address: [facility] MA[facility] Address: Home [address] [place] [address] Name: DARIEN BROUSSARD III Address: Home [address] [place] [address] Name: TORRIE DEWITT Name: PALMA BROWN Address: Home [address] [place] [address] INFORMATION SOURCE (unrecogn ized section and content) DATE CREATED AUTHOR AUTHOR'S ORGANIZ ATION 10/17/2023 [facility] FOR RECORDS PERTAINING TO PATIENTS WHO ARE OR HAVE BEEN ENROLLED IN A CHEMICAL DEPENDENCY/SUBSTANCEABUSE PROGRAM, SOME INFORMATION MAY BE OMITTED. This clinical summary was aggregated from multiple sources. Caution should be exercised in using it in the provision of clinical care. This summary normalizes information from multiple sources, and as a consequence, information in this document may materially change the coding, format and clinical context of patient data. In addition, data may be omitted in some cases. CLINICAL DECISIONS SHOULD BE BASED ON THE PRIMARY CLINICAL RECORDS. [facility] [employer] provides no warranty or guarantee of the accuracy or completeness of information in this document.
[2023-10-20] MEDS: Lactated Ringers 1,000 ML 50 ML IV (08:00)
[2023-10-20 08:27] LABS: Absolute Lymphocyte Count 2.87 X10^3/uL (0.83-4.51); Absolute Neutrophil Count 7.5 X10^3/uL (2.0-7.7); Basophil# 0.07 X10^3/uL; Basophil% 0.6 % (0-1); Eosinophil# 0.15 X10^3/uL; Eosinophils% 1.3 % (0-5); Hematocrit 30.9 % (37-47); Hemoglobin 9.9 g/dL (12.0-15.0); Lymphocyte # 2.87 X10^3/ul (0.83-4.51); Lymphocyte % 24.1 % (19-41); Mean Corpuscular Hgb 31.8 pg (27.0-32.0); Mean Corpuscular Volume 99.4 fL (81-99); Mean Platelet Vol. 11.1 fl (6.2-12.0); Monocyte# 1.14 X10^3/uL; Monocyte% 9.6 % (0-10); NRBC Flagged by Analyzer 0 % (0-5); Neutrophil # 7.48 X10^3/uL (2.7-7.7); Neutrophil % 62.6 % (47-70); Platelet Count 293 K/mm3 (150-450); RBC Distribution Width CV 13.2 % (11.6-14.6); RBC Distribution Width SD 47.9 fl (35.1-43.9); Red Blood Count 3.11 M/mm3 (4.2-5.4); White Blood Count 11.9 K/mm3 (4.4-11.0)
[2023-10-20] MEDS: Oxytocin 15 Units/NS 250ml 15 UNITS/250 ML IV.SOLN 2 UNITS IV (08:40)
[2023-10-20] MEDS: 0.9% Normal Saline Single 100 ML IV.SOLN. INTRA-UTER (09:08)
--- NOTE | 2023-10-20 09:19 | PCM.HP.OB ---
HPI - General General Date of Admission: 10/20/23 HPI Narrative CHRISTA BROWN, is a 23 F who presents at at 40 weeks for elective induction of labor. Maternal Data Information VARUN Calculator Estimated Delivery Date Method Current WG Current Estimate 10/20/23 Manual 40w 0d PFSH PFSH Medical History (Updated 10/20/23 @ 16:27 by Isa Pedraza CNM) 38 weeks gestation of Anxiety Asthma of infant Depression Family history of hearing loss at age younger than 7 years Gestational diabetes History of sickle cell trait in father of unborn child Marginal insertion of umbilical cord Panic attack depression PTSD (post-traumatic stress disorder) Seizures Tetrahydrocannabinol (THC) dependence Home Medications albuterol sulfate 90 mcg/actuation aerosol inhaler 1 - 2 puff inhalation Q4H PRN PRN Dyspnea 01/17/22 [History Last Taken 02/19/22 14:00] promethazine 12.5 mg tablet 12.5 mg PO DAILY PRN Nausea And Vomiting 01/17/22 [History Last Taken 02/10/22] Zoloft 100 mg PO/SL DAILY Check with primary doctor 02/11/22 [History Last Taken 02/22/22 21:00] ondansetron HCl 4 mg tablet 4 mg PO PRN Nausea 10/20/23 [History Last Taken 10/19/23] Allergy/AdvReac Type Severity Reaction Status Date / Time amoxicillin [From Augmentin] Allergy Other Verified 10/20/23 07:30 clavulanic acid Allergy Other Verified 10/20/23 07:30 [From Augmentin] Social History (System 05/08/23 @ 15:18 by Meghana Warren) Smoking Status: Light Smoker (<10/day) History Elective abortions Hx Para 4 Spontaneous abortions Hx # Term Pregnancies Ectopic pregnancies Hx # Pregnancies Multiple births # of living children NST FHR Rate Baby A Baseline: 125 Variability:: Moderate Accelerations:: 15 x 15 Decelerations:: None FHR Category:: Category I Uterine Activity:: Irregular, mild ROS Constitutional Constitutional: Reports systems reviewed and no addt'l complaints, except as documented; Denies headache(s) Eyes Eyes: Denies acute decrease in peripheral vision, blurry vision or change in vision ENT HEENT: Reports systems reviewed and no addt'l complaints, except as documented Cardiovascular Cardiovascular: Denies chest pain or dizziness Respiratory/Chest Respiratory/Chest: Denies cough, dyspnea, dyspnea on exertion, shortness of breath at rest or shortness of breath with exertion Gastrointestinal Gastrointestinal: Denies abdominal pain, diarrhea, nausea or vomiting Genitourinary Genitourinary: Denies abdominal discomfort Musculoskeletal Musculoskeletal: Denies limited range of motion Integumentary Integumentary: Reports systems reviewed and no addt'l complaints, except as documented Neurologic Neurologic: Reports systems reviewed and no addt'l complaints, except as documented Psychiatric Psychiatric: Reports systems reviewed and no addt'l complaints, except as documented Endocrine Endocrinology: Reports systems reviewed and no addt'l complaints, except as documented Hematologic/Lymphatic Hematologic/Lymphatic: Reports systems reviewed and no addt'l complaints, except as documented Allergic/Immunologic Allergic/Immunologic: Reports systems reviewed and no addt'l complaints, except as documented Vital Signs Vital Signs Vital Signs: 10/20/23 07:39 10/20/23 07:39 Pulse Rate 90 Blood Pressure 117/73 BP Systolic 117 BP Diastolic 73 Weight Weight: 141 lb 15.643 oz Body Mass Index (BMI) 24.8 Physical Exam Const alert and oriented x3 General Appearance: cooperative Orientation / Consciousness: awake, oriented to person, oriented to place and oriented to time Exam Limitations: no limitations HEENT normocephalic Head and Scalp: normal to inspection, normocephalic and atraumatic Face and Sinus: normal facial exam Eyes General Eye: normal appearance of both eyes Neck full ROM Chest Chest: symmetrical chest wall rise Resp normal respiratory effort and normal air movement Auscultation: clear to auscultation bilaterally Cardio regular rate, regular rhythm, S1 normal heart sound, S2 normal heart sound, no murmurs, no rub, no gallops and no clicks GI normal to inspection, nondistended, normoactive bowel sounds and non-tender appearance of the vagina normal Bladder / Kidney Exam: no CVA tenderness Manual OB Exam: estimated gestational size appropriate, presentation cephalic, dilated 2cm, effaced 50%, station -2 and other garcia inserted through cervix, 30ml NS instilled Back/Spine normal ROM Extremity normal to inspection and full ROM Skin no rashes or lesions noted Neuro oriented x3, CN's II-XII intact bilaterally and moves all extremities Sensorium / Orientation: awake, alert and oriented to person Motor Exam: clonus absent Deep Tendon Reflexes: Rt Patellar (L4): 2+ and Lt Patellar (L4): 2+ Labs Labs Labs: Blood Type A POSITIVE Antibody Screen NEGATIVE Hct 30.9 % (37-47) L Hgb 9.9 g/dL (12.0-15.0) L Syphilis Total Ab Non-reactive VZV IgG Antibody 746 index (Immune >165) Rubella IgG Antibody Reactive (Nonreactive) Hep Bs Antigen Non-Reactive (Nonreactive) Hepatitis C Antibody Non-Reactive (Nonreactive) Chlamydia DNA (MICHELLE) Negative (Negative) N.gonorrhoeae DNA (MICHELLE) Negative (Negative) HIV 1&2 Antibody Non-Reactive (Nonreactive) Glucose 1 Hr 50 gm 91 mg/dL (70-140) Rhogam given: No Miscellaneous Test GBS negative Assessment & Plan (1) Encounter for induction of labor: (2) Tobacco use complicating : (3) Marijuana use during : (4) Panic attack: (5) Seizures: COMMENT: epilepsy last 07/2021 Pseudo seizure (6) depression: (7) PTSD (post-traumatic stress disorder): (8) Marginal insertion of umbilical cord: (9) of : COMMENT: 10/20/2019 at 7 weeks due to SIDS PLAN: Plan 1) Admit to labor and delivery 2) Routine labs 3) GBS negative 4) Continuous EFM 5) IV fluids per protocol 6) Pitocin and garcia for induction of labor 7) Epidural for pain management upon request. 8) Dr. Kelly collaborative physician and notified of patient status, above assessment and plan of care
[2023-10-20] MEDS: LACTATED RINGERS 500 ML 999 ML IV ×3 (10:54→14:20)
[2023-10-20 11:14] LABS: Amphetamine Urine VISTA NEGATIVE (<1000 ng/mL); Barbiturate Urine VISTA NEGATIVE (< 200 ng/mL); Benzodiazepine Urine VISTA NEGATIVE (< 200 ng/mL); Cocaine Urine VISTA NEGATIVE (< 300 ng/mL); Ecstacy Urine VISTA NEGATIVE (< 500 ng/mL); Methadone Urine VISTA NEGATIVE (< 300 ng/mL); PCP Urine VISTA NEGATIVE (< 25 ng/mL); THC Urine VISTA POSITIVE (< 50 ng/mL); Vista UDS pH Range 5
[2023-10-20 11:56] LABS: Syphilis Antibodies Non-reactive
[2023-10-20] MEDS: fentaNYL-bupivacaine (epidural) 100 ML BAG EPIDURAL ×2 (11:58→18:00)
[2023-10-20] MEDS: Lactated Ringers 1,000 ML 200 ML IV ×2 (15:10→20:44)
[2023-10-20] MEDS: Ondansetron 4 MG/2 ML Vial IV (16:06)
[2023-10-20] MEDS: DiphenhydrAMINE 50 MG/ML Syringe 25 MG IV (16:29)
--- NOTE | 2023-10-20 17:04 | PN.OBGYN_ITS ---
Subjective Subjective Resting in bed, moved to hands and knees. Epidural effective for pain management Objective Data Objective Data Vital Signs: Vital Signs Temp Pulse BP Pulse Ox 97.1 F L 71 112/74 100 10/20/23 16:33 10/20/23 16:33 10/20/23 16:32 10/20/23 16:33 Weight: 141 lb 15.643 oz Body Mass Index (BMI) 24.8 Intake & Output: Intake and Output for Last 24 Hours 10/18/23 10/19/23 10/20/23 23:59 23:59 23:59 Intake Total 2439. / 2439. Balance 2439. / 2439. Lab / Micro Data 10/20/23 08:12 Labs: Laboratory Results - last 24 hr 10/20/23 07:20: Urine Opiates Screen NEGATIVE, Urine Methadone Screen NEGATIVE, Ur Barbiturates Screen NEGATIVE, Ur Phencyclidine Scrn NEGATIVE, Ur Amphetamines Screen NEGATIVE, MDMA (Ecstasy) Screen NEGATIVE, U Benzodiazepines Scrn NEGATIVE, Urine Cocaine Screen NEGATIVE, U Cannabinoids Screen POSITIVE H, Ur Drug Screen Comment 10/20/23 08:12: WBC 11.9 H, RBC 3.11 L, Hgb 9.9 L, Hct 30.9 L, MCV 99.4 H, MCH 31.8, MCHC 32.0, RDW Std Deviation 47.9 H, RDW Coeff of [place] 13.2, Plt Count 293, MPV 11.1, Immature Gran % (Auto) 1.800 H, Neut % (Auto) 62.6, Lymph % (Auto) 2 4.1, [place] % (Auto) 9.6, Eos % (Auto) 1.3, Baso % (Auto) 0.6, Absolute Neuts (auto) 7.5, Absolute Lymphs (auto) 2.87, Nucleated RBC % 0, Syphilis Total Ab Non-reactive, Blood Type A POSITIVE, Antibody Screen NEGATIVE Micro: Microbiology 10/20/23 07:20 Interface Orders Chlamydia trachomatis (PCR) - Final 10/20/23 07:20 Interface Orders Neisseria gonorrhoeae (PCR) - Final NST FHR Rate Baby A Baseline: 115 Variability:: Minimal Accelerations:: None Decelerations:: Late FHR Category:: Category II Uterine Activity:: 5.5 minutes, strong Assessment & Plan (1) Active labor: (2) Encounter for induction of labor: (3) Category II heart rate tracing during labor and delivery: PLAN: Plan 1) Category 2 FHT, positional changes, pitocin off 2) collaborative physician and notified of patient status, above assessment and plan. Asked to review monitor EFM. 3) Continues with recurrent variable and late decelerations, will try amnioinfusion.
[2023-10-20] MEDS: Amnioinfusion- 0.9% NS 1,000 ML IV.SOLN. 100 ML INTRA-UTER (17:18)
[2023-10-20] MEDS: CHLORHEXIDINE GLUC 2% CLOTH 1 EACH TOWELETTE TOPICAL (18:46)
--- NOTE | 2023-10-20 21:18 | PCM.PN.BLA ---
Progress Note came to evaluate patient due to repetitive decels and inability to start pitocin, OP position. Cervix swollen on exam- Internal cephalic version rotated and well applied. will continue to monitor and allow to labor at this time.
[2023-10-20] MEDS: DiphenhydrAMINE 50 MG/ML Syringe IV (22:05)
[2023-10-20] MEDS: 0.9% Saline Lock 10 ML Syringe IV (22:05)
[2023-10-20] MEDS: Oxytocin 15 Units/NS 250ml 15 UNITS/250 ML IV.SOLN 83 UNITS IV (22:30)
--- NOTE | 2023-10-20 22:32 | EX.PCM.OBRPT ---
Maternal Data Information VARUN Calculator Estimated Delivery Date Method Current WG Current Estimate 10/20/23 Manual 40w 0d Vaginal Delivery Maternal Presentation Type of Induction: Pitocin and Amniotomy Operative Information Date of Procedure: 10/20/23 Pre-Operative Diagnosis: 40 weeks, FHR Cat 2, marginal cord insertion , elective IOL Post-Operative Diagnosis: same, LIve male Surgery / Procedure Performed: Vacuum Assisted Vaginal Delivery [employer] supervisor #1: Isa Pedraza Type of Anesthesia: Epidural Drain: Gomez to straight drain Estimated Blood Loss: 150 Time of Delivery: 22:27 Findings Description of Procedure: Patient was having prolonged deceleration into the 50s patient was taken back to the operating room for double set up. Upon arrival in the operating room heart tones were back up into the 120s upon vaginal exam she was found to be complete and +2 station. At this time she was transferred to the operating room table heart tones back down into the 50s. Patient was counseled on use of a vacuum for assisted delivery. She was counseled on the risks of the vacuum including but not limited to vaginal laceration, scalp lacerations and possible brain bleed for the fetus. At this time the vacuum was applied to the flexion point and 550 mmHg suction was applied. Epidural was adequate and Gomez was draining. There was 1 pop-off. With the next pull the infant was delivered with good maternal pushing efforts. Nuchal x 1 loose was noted it was reduced after delivery. Infant was placed on the mother's chest for immediate skin to skin. Arterial and venous gases collected. Pitocin was started and placenta delivered intact without complication. No vaginal or perineal lacerations appreciated. Fundus was firm lochia normal. Presentation: Vertex Amniotic Membrane Rupture Type: Artificial Amniotic Fluid Description: Lightly stained meconium Placental Delivery Description: Spontaneous Placenta Disposition: Routine to Lab Specimen(s) Removed: Placenta Cord Vessel Description: 3 Vessels Cord Entanglement: Around neck x 1, loose Nuchal Cord Compression: With compression Cord Gases: ABG and VBG A Gender: Male (1 minute): 9 (5 minute): 9 Delayed Cord Clamping: Yes Post Vaginal Delivery Medications Given After Delivery: IV Pitocin Episiotomy Description: None Laceration: None Complication Complications: None
[2023-10-20] MEDS: Oxytocin 10 UNITS/ML Vial IM (23:26)
[2023-10-21] VITALS (27 sets, daily range): BP systolic 89–118; BP diastolic 52–72; PULSE 73–101; RESP 15–18; TEMP 36.1–37.2; O2SAT 97–99
[2023-10-21 04:15] LABS: Absolute Lymphocyte Count 2.65 X10^3/uL (0.83-4.51); Absolute Neutrophil Count 14.2 X10^3/uL (2.0-7.7); Basophil# 0.05 X10^3/uL; Basophil% 0.3 % (0-1); Eosinophil# 0.11 X10^3/uL; Eosinophils% 0.6 % (0-5); Hematocrit 29.2 % (37-47); Hemoglobin 9.5 g/dL (12.0-15.0); Lymphocyte # 2.65 X10^3/ul (0.83-4.51); Lymphocyte % 14.3 % (19-41); Mean Corp Hgb Conc 32.5 g/dL (32-36); Mean Corpuscular Volume 98.3 fL (81-99); Mean Platelet Vol. 10.8 fl (6.2-12.0); Monocyte# 1.36 X10^3/uL; Monocyte% 7.3 % (0-10); NRBC Flagged by Analyzer 0 % (0-5); Neutrophil % 76.7 % (47-70); Platelet Count 245 K/mm3 (150-450); RBC Distribution Width CV 13.1 % (11.6-14.6); RBC Distribution Width SD 46.9 fl (35.1-43.9); Red Blood Count 2.97 M/mm3 (4.2-5.4); White Blood Count 18.5 K/mm3 (4.4-11.0)
--- NOTE | 2023-10-21 07:45 | PN.OBGYN_ITS ---
Subjective Subjective Doing well per patient and nursing staff. Ambulating and taking PO without difficulty. Voiding and passing flatus. Pain controlled. Bottle feeding. Denies headache, visual changes, chest pain, shortness of breath, leg pain or increased bleeding. Lochia normal. Objective Data Objective Data Vital Signs: Vital Signs Temp Pulse Resp BP Pulse Ox O2 Del Method 97.2 F L 86 15 104/54 L 97 Room Air 10/21/23 04:04 10/21/23 04:04 10/21/23 04:04 10/21/23 04:04 10/21/23 04:04 10/21/23 04:04 Oxygen Delivery Method Room Air Weight: 141 lb 15.643 oz Body Mass Index (BMI) 24.8 Intake & Output: Intake and Output for Last 24 Hours 10/19/23 10/20/23 10/21/23 23:59 23:59 23:59 Intake Total 3469.06 / 3469.06 1013.33 / 1013.33 Output Total 150 / 150 1150 / 1150 Balance 3319.06 / 3319.06 -136.67 / -136.67 Lab / Micro Data 10/21/23 04:00 Labs: Laboratory Results - last 24 hr 10/20/23 07:20: Urine Opiates Screen NEGATIVE, Urine Methadone Screen NEGATIVE, Ur Barbiturates Screen NEGATIVE, Ur Phencyclidine Scrn NEGATIVE, Ur Amphetamines Screen NEGATIVE, MDMA (Ecstasy) Screen NEGATIVE, U Benzodiazepines Scrn NEGATIVE, Urine Cocaine Screen NEGATIVE, U Cannabinoids Screen POSITIVE H, Ur Drug Screen Comment 10/20/23 08:12: WBC 11.9 H, RBC 3.11 L, Hgb 9.9 L, Hct 30.9 L, MCV 99.4 H, MCH 31.8, MCHC 32.0, RDW Std Deviation 47.9 H, RDW Coeff of [place] 13.2, Plt Count 293, MPV 11.1, Immature Gran % (Auto) 1.800 H, Neut % (Auto) 62.6, Lymph % (Auto) 24.1, [place] % (Auto) 9.6, Eos % (Auto) 1.3, Baso % (Auto) 0.6, Absolute Neuts (auto) 7.5, Absolute Lymphs (auto) 2.87, Nucleated RBC % 0, Syphilis Total Ab Non-reactive, Blood Type A POSITIVE, Antibody Screen NEGATIVE 10/21/23 04:00: WBC 18.5 H, RBC 2.97 L, Hgb 9.5 L, Hct 29.2 L, MCV 98.3, MCH 32.0, MCHC 32.5, RDW Std Deviation 46.9 H, RDW Coeff of [place] 13.1, Plt Count 245, MPV 10.8, Immature Gran % (Auto) 0.800, Neut % (Auto) 76.7 H, Lymph % (Auto) 14.3 L, [place] % (Auto) 7.3, Eos % (Auto) 0.6, Baso % (Auto) 0.3, Absolute Neuts (auto) 14.2 H, Absolute Lymphs (auto) 2.65, Nucleated RBC % 0 Micro: Microbiology 10/20/23 07:20 Interface Orders Chlamydia trachomatis (PCR) - Final 10/20/23 07:20 Interface Orders Neisseria gonorrhoeae (PCR) - Final ROS Constitutional Constitutional: Reports systems reviewed and no addt'l complaints, except as documented; Denies headache(s) Eyes Eyes: Denies acute decrease in peripheral vision, blurry vision or change in vision ENT HEENT: Reports systems reviewed and no addt'l complaints, except as documented Cardiovascular Cardiovascular: Denies chest pain or dizziness Respiratory/Chest Respiratory/Chest: Denies cough, dyspnea, dyspnea on exertion, shortness of breath at rest or shortness of breath with exertion Gastrointestinal Gastrointestinal: Denies abdominal pain, diarrhea, nausea or vomiting Genitourinary Genitourinary: Denies abdominal discomfort Musculoskeletal Musculoskeletal: Denies limited range of motion Integumentary Integumentary: Reports systems reviewed and no addt'l complaints, except as documented Neurologic Neurologic: Reports systems reviewed and no addt'l complaints, except as documented Psychiatric Psychiatric: Reports systems reviewed and no addt'l complaints, except as documented Endocrine Endocrinology: Reports systems reviewed and no addt'l complaints, except as documented Hematologic/Lymphatic Hematologic/Lymphatic: Reports systems reviewed and no addt'l complaints, except as documented Allergic/Immunologic Allergic/Immunologic: Reports systems reviewed and no addt'l complaints, except as documented Physical Exam Const alert and oriented x3 General Appearance: cooperative Orientation / Consciousness: awake, oriented to person, oriented to place and oriented to time Exam Limitations: no limitations HEENT normocephalic Head and Scalp: normal to inspection, normocephalic and atraumatic Face and Sinus: normal facial exam Eyes General Eye: normal appearance of both eyes Neck full ROM Chest Chest: symmetrical chest wall rise Resp normal respiratory effort and normal air movement Auscultation: clear to auscultation bilaterally Cardio regular rate, regular rhythm, S1 normal heart sound, S2 normal heart sound, no murmurs, no rub, no gallops and no clicks GI normal to inspection, nondistended, normoactive bowel sounds and non-tender GI Narrative: fundus firm 2 below appearance of the vagina normal Bladder / Kidney Exam: no CVA tenderness Back/Spine normal ROM Extremity normal to inspection and full ROM Skin no rashes or lesions noted Neuro oriented x3, CN's II-XII intact bilaterally and moves all extremities Sensorium / Orientation: awake, alert and oriented to person Motor Exam: clonus absent Deep Tendon Reflexes: Rt Patellar (L4): 2+ and Lt Patellar (L4): 2+ Assessment & Plan (1) Vaginal delivery: PLAN: Plan 1) PPD #1 2) 3) Pain management 4) Hgb 9.9 to 9.5, start iron supplement 5) Planning D/C home today 6) Social service consult
--- NOTE | 2023-10-21 07:49 | DS.PCM_ITS ---
Providers Date of Admission: 10/20/23 Primary Care Physician: Jessi Primary Care Phys Reason For Visit: VAGINAL DELIVERY Diagnosis Discharge Diagnosis (1) Vaginal delivery: Status: Acute Code(s): O80 - Encounter for full-term uncomplicated delivery Plan 1) PPD #1 2) 3) Pain management 4) Hgb 9.9 to 9.5, start iron supplement 5) Planning D/C home tomorrow morning Medications at Discharge Home Medications albuterol sulfate 90 mcg/actuation aerosol inhaler 1 - 2 puff inhalation Q4H PRN PRN Dyspnea 01/17/22 ondansetron HCl 4 mg tablet 4 mg PO PRN Nausea 10/20/23 ferrous sulfate 325 mg (65 mg iron) tablet (FeroSul) 325 mg PO DAILY@1200 #0 tab s 10/21/23 ibuprofen 600 mg tablet 600 mg PO Q6H PRN PRN Pain Score 1-3 #0 tabs 10/21/23 Weight / BMI Weight Weight: 141 lb 15.643 oz Body Mass Index (BMI) 24.8 ABG / Lab / Microbiology Data 10/21/23 04:00 Laboratory: Laboratory Results - last 24 hr 10/20/23 07:20: Urine Opiates Screen NEGATIVE, Urine Methadone Screen NEGATIVE, Ur Barbiturates Screen NEGATIVE, Ur Phencyclidine Scrn NEGATIVE, Ur Amphetamines Screen NEGATIVE, MDMA (Ecstasy) Screen NEGATIVE, U Benzodiazepines Scrn NEGATIVE, Urine Cocaine Screen NEGATIVE, U Cannabinoids Screen POSITIVE H, Ur Drug Screen Comment 10/20/23 08:12: WBC 11.9 H, RBC 3.11 L, Hgb 9.9 L, Hct 30.9 L, MCV 99.4 H, MCH 31.8, MCHC 32.0, RDW Std Deviation 47.9 H, RDW Coeff of [place] 13.2, Plt Count 293, MPV 11.1, Immature Gran % (Auto) 1.800 H, Neut % (Auto) 62.6, Lymph % (Auto) 24.1, [place] % (Auto) 9.6, Eos % (Auto) 1.3, Baso % (Auto) 0.6, Absolute Neuts (auto) 7.5, Absolute Lymphs (auto) 2.87, Nucleated RBC % 0, Syphilis Total Ab Non-reactive, Blood Type A POSITIVE, Antibody Screen NEGATIVE 10/21/23 04:00: WBC 18.5 H, RBC 2.97 L, Hgb 9.5 L, Hct 29.2 L, MCV 98.3, MCH 32.0, MCHC 32.5, RDW Std Deviation 46.9 H, RDW Coeff of [place] 13.1, Plt Count 245, MPV 10.8, Immature Gran % (Auto) 0.800, Neut % (Auto) 76.7 H, Lymph % (Auto) 14.3 L, [place] % (Auto) 7.3, Eos % (Auto) 0.6, Baso % (Auto) 0.3, Absolute Neuts (auto) 14.2 H, Absolute Lymphs (auto) 2.65, Nucleated RBC % 0 Microbiology: Microbiology 10/20/23 07:20 Interface Orders Chlamydia trachomatis (PCR) - Final 10/20/23 07:20 Interface Orders Neisseria gonorrhoeae (PCR) - Final D/C Instructions Discharge Diet: No restrictions Discharge Activity: Return to Normal Activity May resume sexual activity in: 6 weeks Weight Bearing Status: Full weight bearing Call your doctor if you observe: Fever of 101 or Higher, Inability to urinate, Inability to have a bowel movement, Using more than 1 pad per hour, Shortness of breath, Chest pain, Increased palpitations (irregular heartbeat) and Uncontrolled pain Please Follow Up With: Isa Pedraza CNM When: Follow up in 2 weeks and 6 weeks Meaningful Use Info Meaningful Use Diagnoses (Choose all that apply): None applicable Discharge Plan Admission Admit Date/Time: 10/20/23 07:05 Primary Reason for Your Visit: Vaginal Delivery Attending Provider: Jena Dash Primary Care Provider: Care Physician,No Primary Discharge Orders/Prescriptions Prescriptions: New ferrous sulfate [FeroSul] 325 mg (65 mg iron) Tablet 325 mg PO DAILY@1200 Qty: 0 0RF ibuprofen 600 mg Tablet 600 mg PO Q6H PRN PRN (Reason: Pain Score 1-3) Qty: 0 0RF Continued albuterol sulfate 90 mcg/actuation HFA aerosol inhaler 1 - 2 puff INHALATION Q4H PRN PRN (Reason: Dyspnea) Patient Comments: inhale 1 puff by mouth every 4 hours if needed for wheezing ondansetron HCl 4 mg tablet 4 mg PO PRN Discontinued promethazine 12.5 mg tablet 12.5 mg PO DAILY PRN (Reason: Nausea And Vomiting) Hold Instructions: not helping pt. Patient Comments: take 1 tablet by mouth every 4 to 6 hours if needed for nausea Zoloft 100 mg PO/SL DAILY Hold Instructions: Pt not taking Referrals / Follow Up: Isa Pedraza CNM [Med Staff - [facility]] - (Follow up in 2 weeks and 6 weeks) Care Physician,No Primary [Primary Care Provider] - Disposition Disposition (needs filled in before D/C Order can be placed): Home, Self Care
[2023-10-21] MEDS: Ferrous Sulfate 325 MG Tablet PO (12:13)
[2023-10-21] MEDS: Ibuprofen 600 MG Tablet PO (12:25)
--- NOTE | 2023-10-21 19:35 | CASEMGMT ---
Social Work Assessment Labor and Delivery Unit Patient Address: [address] [place] [address] Phone number: [phone] Date of Referral: 10/21/2023 Time of Referral:? 03:25 Referred By: Juan Kelly Date of Intervention: ?10/21/2023 Time of Intervention:? 15:45 Reason for Referral:? Mental Health, substance use History obtained from: medical records and mother of baby (MOB) Household composition: MOB, FOB ? Trip Broussard, room mate Harman, Maternal grandfather, 3 children and new baby. Patient's parent/guardian status: MOB and FOB are residing together. MOB is from her and he is not the FOB. FOB is Trip Broussard and baby is his 9th child. Pt denies any abuse concerns and reports she is safe in the home. Medical History: MOB received adequate care. 4 prior births, 1 as an infant. Mother denies medical concerns for self and baby. Baby has nicotine and THC exposure. Baby boy born, apgars 9/9 and 6.2 pounds. MOB considering naming baby ?Cheeto.? MOB plans to bottle feed. Educational Status: No literacy concerns Financial Status: No financial concerns Supplies: MOB reports having all necessary supplies and equipment Childcare/Caregiver(s):? MOB will care for baby. Transportation:? No concerns Programs/Agencies Involved: ??[facility], S Children Services/Legal Issues:??? Past report due to THC use with previous child. Denies any current open cases. Behavioral Health Issues: ?? Mental Health History: Mother has a hx of PPD/anx/depression/PTSD. Pt had a 7 week old infant 4 years on the day new baby was born 10/20. Hx of taking Zoloft, does not plan to take ongoing but will if needed. Substance Use History:?? Marijuana use since age 11, positive on admission. Last use reported as 10/13/2023. MOB does not intend to stop using marijuana and used marijuana with previously . MOB was not positive for any other substances and denies any concerns regarding substance abuse. Family History: Denies? Drug Screens: ?THC positive, baby is negative and meconium screening is pending. Family/Social Stressors:? Denies Support Systems: Grandfather, FOB Depression: Education and resources provided and MOB receptive Shaken Baby: Education and resources provided and MOB receptive Safe Sleeping: Education and resources provided and MOB receptive ASSESSMENT: MOB has a history of marijuana use since age 11 and had previously and currently used marijuana during . MOB does not intend to stop marijuana use but is bottle feeding. MOB responds appropriately to this worker. MOB discusses loss of previous child briefly when asked. Baby was born on the anniversary of 7 week old infant?s that occurred 4 years ago. MOB reports mental health history primarily related to that loss. MOB did not go into details about how this loss occurred. MOB notified that [facility] would have to be contacted due to THC use. MOB understood and was not concerned. SW called [facility] to report exposure to THC. Information given to Meghana, big data solutions architectcall center dispatcher for [facility]. ?? PLAN:? Baby to discharge home with mother. No other services requested or indicated. Lupis Adhikari BOBBIN PRESSER, SHOT PACKER
[2023-10-22 23:29] LABS: Pathology Specimen OB SEE PATHOLOGY REPORT
--- NOTE | 2023-11-10 11:31 | CASEMGMT ---
Social Work SW received letter from [facility] stating case was accepted for assessment/investigation. Lupis Adhikari CARDIAC/VASCULAR SONOGRAPHER, FACILITIES PLANNER
== END 2023-10-21 23:40 | disposition home or self-care (01) | DRG 560 ==
PROVIDERS: Advanced Practice Midwife; Obstetrics & Gynecology; Admitting Provider Obstetrics & Gynecology; Visit Provider Obstetrics & Gynecology
DX: O99.324 Drug use complicating childbirth (principal); Z37.0 Single live birth; O99.344 Other mental disorders complicating childbirth; F12.90 Cannabis use, unspecified, uncomplicated; F17.200 Nicotine dependence, unspecified, uncomplicated; O99.334 Smoking (tobacco) complicating childbirth; O69.81X0 Labor and delivery complicated by cord around neck, without compression, not applicable or unspecified; O76 Abnormality in fetal heart rate and rhythm complicating labor and delivery; O77.0 Labor and delivery complicated by meconium in amniotic fluid; Z3A.40 40 weeks gestation of pregnancy; F43.10 Post-traumatic stress disorder, unspecified
CPT/HCPCS: 59025; 59050; 80307; 85025; 86780; 86850; 86900; 86901; 87491; 87591; 88307; 99221; J7030; J7120; A4216; G0378; J2405

== ENCOUNTER 2024-03-21 17:18 | Emergency (ER) | payer MEDICAID, SELFPAY ==
[2024-03-21 17:19] VITALS: BP 129/86; PULSE 79; RESP 16; TEMP 36.1; O2SAT 100; BMI 21.9
--- NOTE | 2024-03-21 17:30 | CT_ITS ---
STUDY: CT ABDOMEN AND PELVIS WITH CONTRAST REASON FOR EXAM: Female, 23 years old. LLQ pain RADIATION DOSAGE (If Supplied By Facility): CTDIvol = ( 8.6 ) mGy, DLP = ( 331.86 ) mGycm TECHNIQUE: Transaxial images were obtained from the dome of the diaphragm to the symphysis pubis without oral contrast. IV 100mL Isovue-370 was administered. Sagittal and coronal images were reconstructed. Individualized dose optimization techniques were used for this CT. The protocol utilizes one or more of the following dose reduction techniques: automated exposure control, adjustment of mA and/or kV according to patient size,and/or use of iterative reconstruction technique. COMPARISON: None. FINDINGS: The visualized lung bases are unremarkable. The visualized portions of the heart are within normal limits. Normal liver. Normal gallbladder and extrahepatic biliary system. Normal spleen. Normal pancreas. Normal bilateral adrenal glands. Normal right kidney. Normal left kidney. Normal visualized stomach. Normal small intestine. Normal colon. The appendix is visualized and appears normal. Normal abdominal aorta. Normal inferior vena cava. Normal retroperitoneum. Normal urinary bladder. Uterus normal. 2 cm left adnexal cystic lesion Normal abdominal wall. Mixed osteolytic and sclerotic lesion left ischium. CT/Abdomen/Pelvis W IV Cont ONLY IMPRESSION: 2 cm left adnexal lesion. Recommend pelvic ultrasound. Sclerotic lucent lesion left ischium noted incidentally. Follow-up MRI or bone scan may be helpful for further characterization. Electronically Signed: Hans Delacruz MD at 18:43 EDT ,
--- NOTE | 2024-03-21 17:31 | EX.ED.DYSGE1 ---
HPI History of Present Illness Chief Complaint: Abd Pain Informant: patient Onset/Context/Timing Onset: Days (4 days) Context: Gradual Onset Timing: Waxes and wanes Current Severity: Mild Maximum Severity: Moderate Narrative Narrative: Patient present secondary left lower quadrant abdominal pain. Pain started 3 days ago and has been progressively worsening. She now has pain in her left lower back as well. She has had subjective fevers, mostly at night. She denies urinary symptoms. No pain with bowel movement. Her last menstrual cycle ended 6 days ago. She was seen at urgent care who reportedly did a urinalysis which revealed no evidence of infection. [facility] Medical History of History of sickle cell trait in father of unborn child Tetrahydrocannabinol (THC) dependence Panic attack PTSD (post-traumatic stress disorder) Marginal insertion of umbilical cord 38 weeks gestation of Family history of hearing loss at age younger than 7 years Asthma depression Depression Anxiety Seizures Gestational diabetes Home Medications ?Medication ?Instructions ?Recorded ?Last Taken ?Type albuterol sulfate 90 mcg/actuation 1 - 2 puff inhalation Q4H PRN PRN 01/17/22 02/19/22 14:00 History aerosol inhaler Dyspnea ondansetron HCl 4 mg tablet 4 mg PO PRN Nausea 10/20/23 10/19/23 History ferrous sulfate 325 mg (65 mg 325 mg PO DAILY@1200 #0 tabs 10/21/23 Unknown Rx iron) tablet (FeroSul) ibuprofen 600 mg tablet 600 mg PO Q6H PRN PRN Pain Score 10/21/23 Unknown Rx 1-3 #0 tabs hydrocodone-acetaminophen 5-325mg 1 tab PO Q6H PRN PRN Pain 3 days 03/21/24 Unknown Rx 5mg-325mg #10 TABLETS naproxen 500 mg tablet (Naprosyn) 500 mg PO BID PRN pain #20 tabs 03/21/24 Unknown Rx norethindrone 1 mg-ethinyl 1 tab PO DAILY 03/21/24 Unknown History estradiol 20 mcg (21)-iron 75 mg (7) tablet Allergy/AdvReac Type Severity Reaction Status Date / Time amoxicillin (From Augmentin) Allergy Other Verified 03/21/24 17:22 clavulanic acid (From Allergy Other Verified 03/21/24 17:22 Augmentin) Social History Smoking Status: Light Smoker (<10/day) ROS ROS ED Constitutional Constitutional ED: Reports fever(s) and subjective; Denies chills Eyes Eyes: Denies discharge from eye(s) ENT ENT ED: Denies discharge from eye(s), rhinorrhea or sore throat Cardiovascular Cardiovascular: Denies chest pain Respiratory/Chest Respiratory/Chest: Denies cough or dyspnea Gastrointestinal Gastrointestinal: Reports abdominal pain; Denies diarrhea, nausea or vomiting Genitourinary Genitourinary ED: Denies difficulty urinating or dysuria Musculoskeletal Musculoskeletal: Reports back pain; Denies extremity pain Integumentary Denies Abrasions or rash Neurologic Neurologic: Denies headache(s) or weakness Psychiatric Psychiatric: Denies anxiety or depression Allergic/Immunologic Allergic/Immunologic ED: Denies lip swelling or urticaria EXAM Physical Exam Const Vital Signs: 03/21/24 17:19 Temperature 96.9 F L Temperature Source Temporal Pulse Rate 79 Respiratory Rate 16 Blood Pressure 129/86 H Blood Pressure Mean 100 Pulse Ox 100 Oxygen Delivery Method Room Air Positive well nourished and well developed General Appearance ED: well developed HEENT Reports moist mucous membranes Eyes EOMs intact bilaterally Chest Wall inspection of chest normal and palpation of chest normal Resp normal respiratory effort and clear to auscultation bilaterally Cardio regular rate and regular rhythm GI GI Narrative: Abdomen soft with tenderness in the lower abdomen, worse on the left. No guarding or rebound. Active bowel sounds are noted. Back/Spine Back/Spine Narrative: Muscular tenderness in the left low lumbar paraspinals. Extremity normal to inspection Neuro oriented x3 and no sensory deficits noted Motor Exam: strength 5/5 throughout Psych mental status grossly normal Skin no rashes or lesions noted MDM MDM MDM Narrative Medical decision making narrative: IV line established. Patient given a dose of Toradol for pain control. Labwork obtained to evaluate for leukocytosis, anemia, and electrolyte derangement. Urinalysis obtained to evaluate for infection/hematuria. CT flank with IV contrast obtained to evaluate for evidence of ovarian cyst, diverticulitis, colitis, pyelonephritis. History & Record Review Discussion w/independent historian: Patient Lab Data Attestation: I reviewed the patient's lab results. Labs: Laboratory Results - last 24 hr 03/21/24 17:35 WBC 11.8 H RBC 4.12 L Hgb 12.4 Hct 37.7 MCV 91.5 MCH 30.1 MCHC 32.9 RDW Std Deviation 41.9 RDW Coeff of [place] 12.5 Plt Count 330 MPV 10.9 Immature Gran % (Auto) 0.200 Neut % (Auto) 59.0 Lymph % (Auto) 32.6 [place] % (Auto) 5.9 Eos % (Auto) 1.5 Baso % (Auto) 0.8 Absolute Neuts (auto) 7.0 Absolute Lymphs (auto) 3.85 Nucleated RBC % 0 Sodium 137 Potassium 3.8 Chloride 107 Carbon Dioxide 25.0 Anion Gap 5 BUN 15 Creatinine 0.80 Estim Creat Clear Calc 88.93 Est GFR (MDRD) Af Amer 113 Est GFR (MDRD) Non-Af 93 BUN/Creatinine Ratio 18.9 Glucose 93 Calcium 9.0 Serum , Qual NEGATIVE Urine Color Yellow Urine Clarity Sl. Cloudy Urine pH 6.0 Ur Specific [place] 1.020 Urine Protein 15 H Urine Glucose (UA) Normal Urine Ketones 50 H Urine Occult Blood Negative Urine Nitrite Negative Urine Bilirubin Negative Urine Urobilinogen 1 H Ur Leukocyte Esterase 25 H Urine RBC 0 SEEN Urine WBC 0-5 SEEN Ur Squamous Epith Cells 5-10 SEEN Amorphous Sediment 1+ URATE Urine Bacteria RARE Urine Mucus 0 SEEN Radiography Diagnostic Testing: Clinical Impression(s) from Imaging Studies Abdomen/Pelvis CT 03/21/24 17:30 IMPRESSION: 2 cm left adnexal lesion. Recommend pelvic ultrasound. Sclerotic lucent lesion left ischium noted incidentally. Follow-up MRI or bone scan may be helpful for further characterization. Electronically Signed: Hans Delacruz MD at 18:43 EDT , Transvaginal US 03/21/24 19:32 IMPRESSION: Simple 2.4 cm left ovarian cyst without evidence of torsion Electronically Signed: Hans Delacruz MD at 21:03 EDT , Treatment and Re-Evaluation :: CBC was a white count 11.8 with normal differential. Hemoglobin is 12.4. Chemistry studies are unremarkable with normal renal function. test is negative. Urinalysis reveals 5-10 epithelial cells with 1+ urate crystals. 0-[address] scan of the flank reveals a 2 cm left adnexal lesion. Pelvic ultrasound recommended. There is also a sclerotic lucent lesion in the left ischium. Follow-up MRI or bone scan could be helpful. Test results discussed with the patient. Pelvic ultrasound is obtained and reveals a simple 2.4 cm left ovarian cyst without evidence of torsion. Patient will be given a prescription for naproxen. I will write her a few [place] for breakthrough pain. She follows with [facility] and will follow-up with them. Return instructions were provided. I will give her a work note for tomorrow. Discharge Plan Triage Chief Complaint: Abd Pain ED Provider: Tatum Mccabe Dx/Rx/DC Orders Clinical Impression: Ovarian cyst Instructions: ED Ovarian Cyst Prescriptions: New naproxen [Naprosyn] 500 mg tablet 500 mg PO BID PRN (Reason: pain) Qty: 20 0RF hydrocodone-acetaminophen 5-325 mg tablet 1 tab PO Q6H PRN PRN (Reason: Pain) 3 Days Qty: 10 0RF No Action albuterol sulfate 90 mcg/actuation HFA aerosol inhaler 1 - 2 puff INHALATION Q4H PRN PRN (Reason: Dyspnea) Patient Comments: inhale 1 puff by mouth every 4 hours if needed for wheezing ondansetron HCl 4 mg tablet 4 mg PO PRN ferrous sulfate [FeroSul] 325 mg (65 mg iron) Tablet 325 mg PO DAILY@1200 Qty: 0 0RF ibuprofen 600 mg Tablet 600 mg PO Q6H PRN PRN (Reason: Pain Score 1-3) Qty: 0 0RF norethindrone-e.estradiol-iron 1 mg-20 mcg (21)/75 mg (7) tablet 1 tab PO DAILY Stand Alone Forms: ED Work / School Excuse Primary Care Provider: Daron White Referrals: Jena Dash MD [Med Staff - Active Staff] - 1-2 Weeks Care Physician,No Primary [Non-Staff] - Print Language: Georgian Disposition Disposition: Home, Self Care
[2024-03-21] MEDS: Ketorolac 15 MG/ML Vial IV (17:39)
[2024-03-21] MEDS: 0.9% Normal Saline (1000mL) 1,000 ML 150 ML IV (17:40)
[2024-03-21 17:51] LABS: Mucous, Urine 0 SEEN /hpf (<or=2+); Red Blood Cells-Urine 0 SEEN /hpf (0-5)
[2024-03-21 17:54] LABS: Absolute Lymphocyte Count 3.85 X10^3/uL (0.83-4.51); Basophil# 0.09 X10^3/uL; Basophil% 0.8 % (0-1); Eosinophil# 0.18 X10^3/uL; Eosinophils% 1.5 % (0-5); Hematocrit 37.7 % (37-47); Hemoglobin 12.4 g/dL (12.0-15.0); Lymphocyte # 3.85 X10^3/ul (0.83-4.51); Lymphocyte % 32.6 % (19-41); Mean Corp Hgb Conc 32.9 g/dL (32-36); Mean Corpuscular Hgb 30.1 pg (27.0-32.0); Mean Corpuscular Volume 91.5 fL (81-99); Mean Platelet Vol. 10.9 fl (6.2-12.0); Monocyte% 5.9 % (0-10); NRBC Flagged by Analyzer 0 % (0-5); Neutrophil # 6.96 X10^3/uL (2.7-7.7); Platelet Count 330 K/mm3 (150-450); RBC Distribution Width CV 12.5 % (11.6-14.6); RBC Distribution Width SD 41.9 fl (35.1-43.9); Red Blood Count 4.12 M/mm3 (4.2-5.4); White Blood Count 11.8 K/mm3 (4.4-11.0)
[2024-03-21 18:07] LABS: Anion Gap 5 (5-15); BUN 15 mg/dL (7-18); BUN/Creat Ratio 18.9 RATIO (10-20); Chloride 107 mmol/L (98-107); EST Glomerular Filtration Rate 93 mL/min (>60); Est Glom Filt Rate - Afr Amer 113 mL/min (>60); Estimated Creatinine Clearance 88.93 ml/min; Glucose 93 mg/dL (74-106); Potassium 3.8 mmol/L (3.5-5.1); Sodium Level 137 mmol/L (136-145)
[2024-03-21 18:10] LABS: Internal QC Validated? YES +Cl - CLEAR BKGD; Pregnancy, Serum, hCG Quali. NEGATIVE Negative
[2024-03-21 18:16] LABS: Color, Urine Yellow (Yellow); Glucose, Dipstick Normal (Normal); Ketone-Dipstick 50 mg/dl (Negative); Leukocyte Esterase-Dipstick 25 /ul (Negative); Nitrite-Dipstick Negative (Negative); Occult Blood-Urine Negative /ul (Negative); Protein-Dipstick 15 mg/dl (Negative); Urine Bilirubin Dipstick Negative (Negative); Urine Clarity Sl. Cloudy (Clear); Urine Urobilinogen 1 mg/dl (Normal)
[2024-03-21 18:38] LABS: Amorphous Sediment 1+ URATE; Bacteria RARE /hpf (None Seen); Squamous Epithelial Cells - UA 5-10 SEEN /hpf (5-10); White Blood Cells 0-5 SEEN /hpf (0-5)
--- NOTE | 2024-03-21 19:32 | US_ITS ---
STUDY: ULTRASOUND TRANSVAGINAL CLINICAL: Female, 23 years old. left adnexal cyst, pain TECHNIQUE: Transvaginal COMPARISON: Pelvic ultrasound March 21, 2024 FINDINGS: Normal uterine size measuring 10.4 x 6.9 x 4.9 cm in maximal craniocaudal dimension. There are no myometrial masses. Increased vascularity. Normal endometrial thickness measuring 12 mm. There are no endometrial masses, and there is no fluid in the endometrial cavity. Normal uterine cervix. Normal right ovary, measuring 3.4 x 2 x 2.1 cm. There are multiple follicles without a dominant cyst. Normal left ovary, measuring 4.1 x 3.5 x 2.2 cm. There are multiple follicles with a dominant 2.4 x 2.2 x 1.7 cm cyst. Small amount of free fluid in the cul-de-sac. US/Transvaginal Non- IMPRESSION: Simple 2.4 cm left ovarian cyst without evidence of torsion Electronically Signed: Hans Delacruz MD at 21:03 EDT ,
[2024-03-21 21:00] VITALS: PULSE 66
[2024-03-21 21:25] VITALS: BP 107/64; PULSE 66; RESP 17; TEMP 36.6; O2SAT 96
== END 2024-03-21 21:26 | disposition home or self-care (01) ==
PROVIDERS: Emergency Provider Emergency Medicine; PCP Family Medicine; Visit Provider Emergency Medicine
DX: N83.292 Other ovarian cyst, left side (principal); F17.200 Nicotine dependence, unspecified, uncomplicated; Z79.899 Other long term (current) drug therapy
CPT/HCPCS: 74177; 76830; 80048; 81001; 84703; 85025; 96361; 96374; 99283; J7030; Q9967